=== PATIENT | female | born 1955 | race Caucasian/White ===

== ENCOUNTER → 2023-04-08 | Emergency (ER) | payer OTHER ==
[~2023-04-08] MED LIST: TRAMADOL HCL 50 MG TAB ONE
--- NOTE | 2023-04-08 12:50 | RAD REPORT ---
EXAM DESCRIPTION: CT - Spine Lumbar Wo Con - 04/08/2023 12:21 pm CLINICAL HISTORY: Radiculopathy. PAIN COMPARISON: No comparisons TECHNIQUE: Axial noncontrast CT imaging of the lumbar spine was performed with coronal and sagittal re-formatted images. All CT scans are performed using dose optimization technique as appropriate and may include automated exposure control or mA/KV adjustment according to patient size. FINDINGS: Moderate anterior compression fracture of the T12 vertebral body is noted. Vertebral body height loss is estimated 50%. No evidence of significant canal compromise. Postoperative changes of previous fusion noted at L5-S1 with hardware in place. There is no high-grade canal stenosis seen at any level. IMPRESSION: Moderate suspected acute anterior wedge compression fracture affects T12, with approxima tely 50% loss of vertebral body height. No significant canal compromise.
--- NOTE | 2023-04-08 13:33 | RAD REPORT ---
EXAM DESCRIPTION: CT - Head C Spine Mpr Wo Con - 04/08/2023 1:19 pm CLINICAL HISTORY: Head and neck injury status post fall. Head and neck pain COMPARISON: None. TECHNIQUE: Computed axial tomography of the head and cervical spine was obtained. Sagittal and coronal reconstruction was performed. All CT scans are performed using dose optimization technique as appropriate and may include automated exposure control or mA/KV adjustment according to patient size. FINDINGS: An intracranial bleed is not seen. The ventricles are normal in caliber. No significant hypodensity within the brain. An extra-axial fluid collection is not noted. Fluid within the visualized sinuses and mastoids is not seen A cervical fracture is not visualized. No dislocation is noted. IMPRESSION: No acute intracranial abnormality is seen. A cervical fracture is not visualized. If the patient continues to have symptoms to suggest intracranial /spinal cord pathology then MRI wou ld be recommended
--- NOTE | 2023-04-08 13:44 | RAD REPORT ---
EXAM DESCRIPTION: CTThoracic Spine W/o Cont04/08/2023 1:22 pm CLINICAL HISTORY: Back injury with Back pain status post fall COMPARISON: None TECHNIQUE: Computed axial tomography of thoracic spine was obtained with coronal and sagittal recons truction. All CT scans are performed using dose optimization technique as appropriate and may include automated exposure control or mA/KV adjustment according to patient size. FINDINGS: Moderate compression fracture T12 vertebral body with 50% height loss. No significant retr opulsion bone into the spinal canal. Acute fracture involves the right anterolateral aspect of the T12 vertebral body with avulsion of a l arge osteophyte. No dislocation IMPRESSION: Acute fracture involves the right anterolateral aspect of the T12 vertebral body with av ulsion of a large osteophyte. Moderate compression fracture involving the T12 vertebral body of indeterminate age
--- NOTE | 2023-04-08 14:07 | ER ---
Nurse's Notes [facility] Name: Geronimo Davis Age: 67 yrs Sex: Female : 1955 Arrival Date: 04/08/2023 Time: 11:23 Bed 13 Private MD: Diagnosis: T12 Compression fracture;Low back pain Presentation: 04/08 11:42 Chief complaint: Parent and/or Guardian states: LUMBAR PAIN SINCE FALL OUT OF BED 2 bp DAYS AGO. Coronavirus screen: At this time, the client does not indicate any symptoms associated with coronavirus-19. Ebola Screen: No symptoms or risks identified at this time. Initial Sepsis Screen: Does the patient meet any 2 criteria? No. Patient's initial sepsis screen is negative. Does the patient have a suspected source of infection? No. Patient's initial sepsis screen is negative. Risk Assessment: Do you want to hurt yourself or someone else? Patient reports no desire to harm self or others. Onset of symptoms is unknown. 11:42 Method Of Arrival: Wheelchair bp 11:42 Acuity: SARAHI 3 bp Triage Assessment: 11:42 General: Appears uncomfortable, Behavior is cooperative, appropriate for age, drowsy. bp Pain: Complains of pain in back. Historical: - Allergies: 11:38 Morphine; bp 11:38 Vicodin; bp 11:38 Darvocet-N 100; bp - PMHx: 11:38 Hypertensive disorder; Diabetes mellitus; Chronic obstructive lung disease; Cirrhosis bp of liver; Kidney disease; - PSHx: 11:38 Appendectomy; HYSTERECTOMY; LUMBAR FUSION; bp - Immunization history:: Adult Immunizations up to date. - Social history:: Smoking status: unknown. Screenin:45 [facility] ED Fall Risk Assessment (Adult) History of falling in the last 3 months, rs5 including since admission Yes- single mechanical fall (1 pt) Confusion or Disorientation No (0 pts) Intoxicated or Sedated No (0 pts) Impaired Gait Yes (1 pt) Mobility Assist Device Used Yes (1 pt) Altered Elimination Score/Fall Risk Level 0 - 2 = Low Risk Oriented to surroundings, Maintained a safe environment. Abuse screen: Denies threats or abuse. Nutritional screening: No deficits noted. Tuberculosis screening: No symptoms or risk factors identified. Assessment: 11:45 General: Appears in no apparent distress. uncomfortable, Behavior is calm, cooperative. rs5 Pain: Complains of pain in lower back Pain radiates to left leg Pain currently is 9 out of 10 on a pain scale. Quality of pain is described as aching, Pain began 2-3 days ago. Is continuous. Neuro: Level of Consciousness is awake, alert, obeys commands, Oriented to person, place, time, situation. 11:45 Cardiovascular: Heart tones S1 S2 present Patient's skin is warm and dry. Rhythm is rs5 regular. Respiratory: Airway is patent Respiratory effort is even, unlabored, Respiratory pattern is regular, symmetrical, Breath sounds are clear bilaterally. GI: Abdomen is round non-distended, Bowel sounds present X 4 quads. Abd is soft and non tender X 4 quads. : No signs and/or symptoms were reported regarding the genitourinary system. EENT: No signs and/or symptoms were reported regarding the EENT system. Derm: Skin is intact, Skin is pink, warm \\T\\ dry. Musculoskeletal: Range of motion: intact in all extremities. 11:45 Reassessment: Pt states "I fell 3 days ago and I landed on my lower back and the pains rs5 gradually has been getting worse over the past couple of days". 14:45 Reassessment: Patient and/or family updated on plan of care and expected duration. Pain rs5 level reassessed. Patient is alert, oriented x 3, equal unlabored respirations, skin warm/dry/pink. Patient denies pain at this time. Patient states feeling better. Patient states symptoms have improved. Transfer form signature obtained by pt. 14:50 Reassessment: successful attempt to call report to NADJA Douglas from [facility] at [address] 16:18 Reassessment: REPORT TO EMS FOR [facility]. bp 16:25 Reassessment: Patient and/or family updated on plan of care and expected duration. Pain rs5 level reassessed. Patient is alert, oriented x 3, equal unlabored respirations, skin warm/dry/pink. Report given to EMS for transportation. Vital Signs: 11:42 BP 150 / 78; Pulse 70; Resp 16; Temp 98; Pulse Ox 97% ; bp 12:14 BP 126 / 71; Pulse 66; Resp 18; Pulse Ox 99% on R/A; rs5 13:20 BP 120 / 70; Pulse 67; Resp 17; Pulse Ox 99% ; rs5 ED Course: 11:26 Patient arrived in ED. rg4 11:33 Srinivas Alvarado DO is Attending Physician. ms3 11:42 Arm band placed on. bp 11:43 Triage completed. bp 11:45 Patient has correct armband on for positive identification. Bed in low position. Call rs5 light in reach. Side rails up X2. 12:00 Hussein Moralez, RN is Primary Nurse. rs5 12:19 CT Lumbar Spine Wo Con In Process Unspecified. EDMS 13:18 CT Head C Spine In Process Unspecified. EDMS 13:18 CT Thoracic Spine Wo Cont In Process Unspecified. EDMS 13:30 Inserted saline lock: 20 gauge in left antecubital area, using aseptic technique. Blood rs5 collected. 14:26 initiated transfer to [facility]. bd 14:57 pt accepted in transfer to [facility] Er by dr Fraga admin approval given by Melvi. bd 16:19 No provider procedures requiring assistance completed. Patient transferred, IV remains bp in place. Administered Medications: 12:10 Drug: traMADol PO 50 mg PO once Route: PO; rs5 12:40 Follow up: Response: No adverse reaction; Pain is decreased rs5 Medication: 12:14 VIS not applicable for this client. rs5 Outcome: 14:07 ER care complete, transfer ordered by . ms3 16:19 Transferred by ground EMS to [facility], bp 16:19 Condition: stable 16:19 Instructed on the need for transfer, 16:37 Patient left the ED. rs5 Signatures: Dispatcher [employer] EDMS Edilia Rosario Rubi rg4 Trell Mcadams, RN RN bp Srinivas Alvarado DO DO ms3 Hussein Moralez, RN RN rs5 Corrections: (The following items were deleted from the chart) 16:37 14:45 Reassessment: Patient and/or family updated on plan of care and expected rs5 duration. Pain level reassessed. Patient is alert, oriented x 3, equal unlabored respirations, skin warm/dry/pink. Patient states feeling better. Patient states symptoms have improved. Transfer form signature obtained by pt. rs5 16:37 16:25 Reassessment: Patient and/or family updated on plan of care and expected rs5 duration. Pain level reassessed. Patient is alert, oriented x 3, equal unlabored respirations, skin warm/dry/pink. Report given to EMS for transportation. rs5
--- NOTE | 2023-04-08 14:07 | EDPHYS ---
Physician Documentation [facility] Name: Geronimo Davis Age: 67 yrs Sex: Female : 1955 Arrival Date: 04/08/2023 Time: 11:23 Bed 13 Private MD: ED Physician Srinivas Alvarado HPI: 04/08 12:39 This 67 yrs old Female presents to ER via Wheelchair with complaints of Pain All Over. ms3 12:39 67-year-old female with past medical history of hypertension, diabetes, chronic ms3 obstructive lung disease, cirrhosis of the liver presents to the emergency department 2 to 3 days status post falling out of bed. Patient states when she fell her head landed on her pillow and she landed on her back. Patient states the pain is a 9/10 located in her lumbar spine. Patient denies any alleviating factors. Patient states the pain is worse with standing, going to sit down, or going to lay down. Patient denies urinary or bowel incontinence, numbness, weakness. Historical: - Allergies: 11:38 Morphine; bp 11:38 Vicodin; bp 11:38 Darvocet-N 100; bp - PMHx: 11:38 Hypertensive disorder; Diabetes mellitus; Chronic obstructive lung disease; Cirrhosis bp of liver; Kidney disease; - PSHx: 11:38 Appendectomy; HYSTERECTOMY; LUMBAR FUSION; bp - Immunization history:: Adult Immunizations up to date. - Social history:: Smoking status: unknown. ROS: 12:39 Constitutional: Negative for fever, and chills. Neck: Negative for injury, pain, and ms3 swelling, Cardiovascular: Negative for chest pain, and palpitations. Respiratory: Negative for shortness of breath, cough, wheezing, and pleuritic chest pain, 12:39 Abdomen/GI: 12:39 Back: Positive for Lumbar back pain, 12:39 All other systems are negative, Exam: 12:39 Constitutional: This is a well developed, well nourished patient who is awake, alert, ms3 and in no acute distress. Head/Face: Normocephalic, atraumatic. Neck: Trachea midline, no cervical lymphadenopathy. Supple, full range of motion without nuchal rigidity, or vertebral point tenderness. No Meningismus. Chest/axilla: Normal chest wall appearance and motion. Nontender with no deformity. Cardiovascular: Regular rate and rhythm with a normal S1 and S2. No gallops, murmurs, or rubs. Normal PMI, no JVD. No pulse deficits. Respiratory: Lungs have equal breath sounds bilaterally, clear to auscultation and percussion. No rales, rhonchi or wheezes noted. No increased work of breathing, no retractions or nasal flaring. Abdomen/GI: Soft, non-tender, with normal bowel sounds. No distension or tympany. No guarding or rebound. No evidence of tenderness throughout. 12:39 Back: pain, that is severe, of the lumbar area, ROM is painful, with all movement, normal spinal alignment noted, vertebral tenderness, is appreciated at back, Vital Signs: 11:42 BP 150 / 78; Pulse 70; Resp 16; Temp 98; Pulse Ox 97% ; bp 12:14 BP 126 / 71; Pulse 66; Resp 18; Pulse Ox 99% on R/A; rs5 13:20 BP 120 / 70; Pulse 67; Resp 17; Pulse Ox 99% ; rs5 MDM: 12:05 Patient medically screened. ms3 12:39 Differential diagnosis: sprain, vertebral fracture. ms3 14:07 Data reviewed: vital signs, nurses notes, lab test result(s), radiologic studies, and ms3 as a result, I will transfer patient . I considered the following discharge prescriptions or medication management in the emergency department Medications were administered in the Emergency Department. See MAR. Historians other than the Patient: Daughter/Son: Patient's daughter. Care significantly affected by the following chronic conditions: Hypertension, Liver Disease. Counseling: I had a detailed discussion with the patient and/or guardian regarding the historical points, exam findings, and any diagnostic results supporting the discharge/admit diagnosis, lab results, radiology results, the need to transfer to another facility, [facility] does not immediately have the required specialist. ED course: Discussed necessity of transfer with patient to trauma center as patient fell from bed fracturing T12 vertebra. 04/08 12:58 Order name: CBC with Diff; Complete Time: 20:21 ms3 04/08 12:58 Order name: CMP; Complete Time: 14:44 ms3 04/08 12:58 Order name: PT-INR; Complete Time: 14:44 ms3 04/08 16:07 Order name: CBC Smear Scan; Complete Time: 20:21 EDMS 04/08 12:05 Order name: CT Lumbar Spine Wo Con; Complete Time: 12:56 ms3 04/08 12:58 Order name: CT Head C Spine; Complete Time: 14:05 ms3 04/08 13:00 Order name: CT Thoracic Spine Wo Cont; Complete Time: 14:05 ms3 Administered Medications: 12:10 Drug: traMADol PO 50 mg PO once Route: PO; rs5 12:40 Follow up: Response: No adverse reaction; Pain is decreased rs5 Disposition Summary: 04/08/23 14:07 Transfer Ordered Notes: Transfer Location: [facility] ms3 Reason: Higher level of care ms3 Condition: Stable ms3 Problem: new ms3 Symptoms: are unchanged ms3 Accepting Physician: (04/08/23 16:37) rs5 Diagnosis - T12 Compression fracture ms3 - Low back pain ms3 Forms: - Medication Reconciliation Form ms3 - SBAR form ms3 Signatures: Dispatcher [employer] EDTrell Ling, RN RN Srinivas Flowers DO DO ms3 Hussein Moralez RN RN rs5 Corrections: (The following items were deleted from the chart) 16:37 14:07 ms3 rs5
[2023-04-08 14:19] LABS: Protime INR 1.35
[2023-04-08 14:31] LABS: Albumin 2.7 g/dL (3.4-5.0); Bilirubin Total 1.3 mg/dL (0.2-1.0); Hematocrit 32.3 % (36.0-45.0); Lymphocytes % 17.6 % (15.3-44.8); MCV 89.1 fL (80-100); MPV 8.9 fL (7.6-11.3); Platelets 98 thou/uL (152-406); Potassium 3.5 mEq/L (3.5-5.1); Protein, Total 7.1 g/dL (6.4-8.2); RBC Red Blood Cell Count 3.63 M/uL (3.86-4.86)
[2023-04-08 16:06] LABS: Blood Morphology Comment NOT SEEN (NOT SEEN); Platelet Estimate DECR
[2023-04-08 16:22] LABS: White Blood Cell Scan OK (OK)
[2023-04-08 16:58] VITALS: BP 120/70; TEMP 98; O2SAT 99
== END ==
LOC: ER 11:23
DX: S22.089A Unspecified fracture of T11-T12 vertebra, initial encounter for closed fracture (principal); E11.9 Type 2 diabetes mellitus without complications; I10 Essential (primary) hypertension; J44.9 Chronic obstructive pulmonary disease, unspecified; Z88.5 Allergy status to narcotic agent
CPT/HCPCS: 36415; 70450; 72125; 72128; 72131; 80053; 85025; 85610; 99285

== ENCOUNTER → 2023-05-04 | Emergency (ER) | payer OTHER ==
[~2023-05-04] MED LIST changes: +ONDANSETRON 4 MG (ODT) TAB ONE
--- OUTSIDE RECORDS SUMMARY | 2023-05-04 02:23 | XMS REPORT | Continuity of Care Document ---
Author Name Unknown Address [address] [facility] [address] [place] [address] [facility] thconnect Address [address] [facility] [place] [address] Care Team Providers Care Crossing Tender Name Role Phone YUE AHN Attending Clinician UnaDov Millan Attending Clinician Unavailable YUE AHN Admitting Clinician Unav ailable Physician, No Primary or Family Admitting Clinic barbara Unavailable Payers Payer Name Policy Type Policy Number Effective Date Expirati on Date Source Allergies, Adverse Reactions, Alerts Allergy Name Allergy Type Status Severity Reaction(s) Onset Date Inactive Date Treating Clinician Comments Source No Known Allergie s DA Active U 2022-04 00:00: 00 [facility] Encounters Start Date/Time End Date/Time Encounter Type Admission Type Attending Clinicians Care Facility Care Department Encounter ID Source 2023-04-29 20:06:00 2023-05-01 15:40:00 Inpatient E YUE AHN [facility] [id number] [facility] 2023-04-22 14:23:30 2023-04-22 14:23:30 Outpatient S[facility] [id number] James Lawson 2023-04-15 21:57:00 2023-04-16 01:25:00 Emergency EM Dov Choe [facility] JAZMÍN [id number] [facility] Results Test Description Test Time Test Comments Results Resul t Comments Source - CT L-SPINE W/O CONTRAST 2023-04-15 23:37:[address] [facility] 1955 Sex: F Anshu tient Name: JEANETH HO Unit No: [id number] EXAMS: CPT CODE: [id number] CT L-SPINE W/O CONTRAST 10007 Exam: CT of the lumbar spine without contrast. History: T12 fracture Technique: Contiguous axial CT images were obtained of the lumbar spine without contrast. Coronal and sagittal reformatted images were also performed.One or more of the following dose reduction techniques were used: Automated exposure control, adjustment of the mA and/or kV according to patient size, and/or utilization of iterative reconstruction technique. Comparison: None Available Findings: Location: H102 Findings: Age-indeterminate fracture of T12 with approximately 70% loss of vertebral body height less than 2 mm of retropulsion of fragments into the canal. Mild associated canal stenosis is seen. Neuroforaminal stenosis also seen at T12-L1 bilaterally Multilevel degenerative changes are noted. Postsurgical changes of L5-S1 noted including kirit and screw fixation and laminectomy. Prominent anterolisthesis of L5 on S1 is noted Incidentally noted likely TIPS procedure is seen. Multiple hyperdensities seen adjacent to the patient's stomach may reflect variceal coiling recommend correlation with history Impression: Age-indeterminate fracture of T12 with approximately 70% loss of vertebral body height less than 2 mm of retropulsion of fragments into the canal. Mild associated canal stenosis is seen. Neuroforaminal stenosis also seen at T12-L1 bilaterally Multilevel degenerative changes are noted. Postsurgical changes of L5-S1 noted including kirit and screw fixation and laminectomy. Prominent anterolisthesis of L5 on S1 is noted at 2337 Reported and signed by: ELKE MORA M.D. [facility]: Dov Koroma MD [address] : 1955 Age: 67 Sex: F [place] [id number] Loc: P.ERS Exam Date: 04/15/2023 Status: REG ER PH: FAX: PAGE 1 Signed Report (CONTINUED) Patient Name: JEANETH HO Unit No: [id number] EXAMS: CPT CODE: [id number] CT L-SPINE W/O CONTRAST 40795 (Continued) CC: Dov Choe MD Technologist: Kelly Lugo CTDI: 39.14 DLP: 1470 Trscr Dt/Tm: 04/15/2023 (2337) by:[email or web address] Printed Date/Time: 04/15/2023 (2341) [facility]: Dov Koroma MD [address] DOB: 1955 Age: 67 Sex: F [place] [address] Loc: P.ERS Exam Date: 04/15/2023 Status: REG ER PH: FAX: PAGE 2 Signed Report Notes Date/Time Note Provider Source 2023-04-15 21:59:00 [id number]:59:00 [facility] ([facility])EMERGENCY PROVIDER REPORTREPORT#:[id number] REPORT STATUS: SignedDATE:04/15/23 TIME: 2158 PATIENT: JEANETH HO UNIT #: [id number]#: [id number] ROOM: BED:AGE: 67 SEX: F PCP PHYS: No Primary or Family PhysicianSERVICE AUTHOR: Dov Choe MD * ALL edits or amendments must be made on the electronic/computer document * Dov Choe 04/15/232158:HPI-Back Pain 40 and Over Free Text HPI NotesFree Text HPI [id number] female with a history of A-fib, TIPS procedure, smoking history, presents to the emergency room with complaint of compression fracture. Patient states that about a week and a half ago she had notable. Patient states that a week ago today she presented to [facility] and Was Diagnosed with T12 Fracture per Patient Was Transferred to [facility]. Specialist at [facility] instructed patient to follow-up with clinic as surgery was not an option at this time. Patient states that her pain has worsened. Patient states that the pain is located at the site of the fracture and when she ambulates she radiates down her posterior left leg to about her knee. Patient denies any numbness or weakness urinary or bowel incontinence. GeneralInitial Greet Date/Time 04/15/232158 PresentationChief Complaint Pain, thoracicSudden in Onset? No Review of Systems Focused Review of SystemsConstitutionalDenies: Chills, Fatigue, Fever. RespiratoryDenies: Cough, non-productive, Shortness of breath. CardiovascularDenies: Chest pain, Palpitations. GIDenies: Abdominal pain, Nausea, Vomiting. MusculoskeletalReports: Back pain. NeurologicDenies: Headache, Lightheaded, Numbness. Past Medical History - AdultStated Complaint CHRONIC PAIN IN LOWER BACKAllergiesCoded Allergies:No Known Allergies (04/15/23) Home MedicationsReported MedicationsZinc Sulfate (Zinc-15) 66 MG PO DAILY Rifaximin (Xifaxan) 550 MG PO DAILY Allopurinol (Zyloprim) 100 MG PO DAILY Omeprazole Er 40 MG PO DAILY Albuterol (Albuterol HFA 90 MCG/ACT) 2 PUFF INH RTQ4H PRN PRN DYSPNEA/WHEEZING Lactulose (Enulose 10 G/15 ML) 15 ML PO QID Triamcinolone Acetonide (Triamcinolone 0.1% Oint) Cholecalciferol (Vitamin D3) (Vitamin D3) Montelukast Sodium (Singulair) Spironolactone (Aldactone) Aripiprazole (Abilify) Sertraline (Zoloft) Gabapentin (Neurontin) Furosemide (Lasix) Tramadol (Ultram) Magnesium Oxide Ondansetron Odt (Zofran Odt) Physical Exam Vital SignsVital SignsFirst Documented: Result Date Time Pulse Ox 98 04/15 2158 B/P 153/70 04/15 2158 B/P Mean 97 04/15 2158 O2 Delivery Room air 04/15 2158 Temp 36.9 04/15 2158 Pulse 72 04/15 2158 Resp 16 04/15 2158 Last Documented: Result Date Time Pulse Ox 98 04/16 147 B/P 142/78 04/16 147 B/P Mean 99 04/16 147 O2 Delivery Room air 04/16 147 Temp 36.9 04/16 147 Pulse 74 04/16 147 Resp 16 04/16 147 Review of Vital Signs Reviewed Focused PEGeneral/Const General/Const Awake, Alert, No acute distress, Well appearing, Well developed, Well nourishedResp/Chest Respiratory/Chest Atraumatic, Breath sounds NL, Breath sounds = bilat, No respiratory distress, No ralesCardiovascular Cardiovascular Heart rate NL, Regular rhythm, Heart sounds NL, No murmursAbdomen/GI Abdomen/GI Atraumatic, Soft, No guarding, No reboundMS Lower Extrem Lower Ext/Pelvis/MS Atraumatic, Inspection NL, Full range of motionNeurologic Neurologic Oriented X3, No motor deficits, CN II - XII intact Interpretation Diagnostics Lab Results InterpretationResultsRecent Impressions:CAT SCAN - CT L-SPINE W/O CONTRAST 04/15 2220 Report Impression - Status: SIGNED Entered: 04/15/2023 2341 Impression: Age-indeterminate fracture of T12 with approximately 70% loss ofvertebral body height less than 2 mm of retropulsion of fragments intothe canal. Mild associated canal stenosis is seen. Neuroforaminalstenosis also seen at T12-L1 bilaterally Multilevel degenerativechanges are noted. Postsurgical changes of L5-S1 noted including rodand screw fixation and laminectomy. Prominent anterolisthesis of L5on S1 is noted Impression By: [email or web address] Ruth MORA M.D. Re-Evaluation MDM Free Text MDM NotesFree Text MDM [id number] female presents emergency room with complaint of back pain. Patientstates that the pain has worsened after her fall a week and a half ago. Patienthas a T12 vertebral body fracture. Patient was seen at 2 outside facilities prior. Patient was cleared for outpatient follow-up by surgery spine. Upon evaluation of previous imaging compared to today and speaking to radiology I believe that patient can be seen as an outpatient and keep appointment. Patientwithout any neural deficit at this time. Patient without any urinary or bowel incontinence. Patient does have liver failure. Patient is currently on tramadol every 12 as needed for pain. Daughter states that she has given her every 12 and it alleviates the pain briefly. Instructed daughter to give every 3 for the next 3 days but to watch patient closely for signs of overdose to include excessive sleepiness, altered mental status, respiratory depression. Will discharge at this time. Re-Evaluation/Progress #1Text/Dict NoteSpoke with [facility]. Patient [facility] CT spine without contrast that revealed moderate compression fracture of T12 vertebral body with 50% height loss. No significant retropulsion of bone into the spinal canal. Acute fracture involves the right anterior lateral aspect of T12 vertebral body with avulsion of large osteophyte. No dislocation.Time of Re-Eval 0009 Re-Evaluation/Progress #2Text/Dict NoteSpoke with [facility] emergency room doctor. There CT and x-ray read did not reveal any retropotion of the fragments into the canalTime of Eval 0019 Re-Evaluation/Progress #3Text/Dict NoteSpoke with radiologist about findings. States that retropulsion is very minimaland is not causing any compression of the spinal cord at this time. Very mild associated canal stenosis is seen. Patient without any neurodeficits at this time.Time of Eval 0032 ED CourseMedication(s) OrderedMedication(s) Ordered:Central Nervous System Agents Sig/Rajinder Start time Last Medication Dose Route Stop Time Status Admin Tramadol HCl 50 MG X1ED STA 04/16 42 DC 04/16 PO 04/16 43 0100 Differential Diagnosis)( Differential Diagnosis Fracture, Herniated disk, Lumbar strain Patient Discharge Departure Vital Signs/ConditionVital SignsFirst Documented: Result Date Time Pulse Ox 98 04/15 2158 B/P 153/70 04/15 2158 B/P Mean 97 04/15 2158 O2 Delivery Room air 04/15 2158 Temp 36.9 04/15 2158 Pulse 72 04/15 2158 Resp 16 04/15 2158 Last Documented: Result Date Time Pulse Ox 98 04/16 147 B/P 142/78 04/16 147 B/P Mean 99 04/16 147 O2 Delivery Room air 04/16 147 Temp 36.9 04/16 147 Pulse 74 04/16 147 Resp 16 04/16 147 All vital signs available at the time of this entry have been reviewed. Condition Stable Clinical ImpressionClinical ImpressionPrimary Impression: T12 compression fracture Disposition DecisionDischarge )( Discharged to Home Yes )( Time 003 )( Date 04/15/23 Discharge/Care PlanCounseled Regarding Diagnosis, Imaging studies, Need for follow-up(Auto) PrescriptionsCurrent Visit ScriptsTramadol (Ultram) 50 MG PO Q8H PRN PRN pain Tramadol (Ultram) 50 MG PO Q8H PRN PRN pain #9 TABS Patient Instructions ED Fracture, Vertebral CompressionAdditional InstructionsPlease follow-up with your spine surgeon for further evaluation management. If you develop any numbness or weakness in lower extremities return for further evaluation. Please be careful with pain medication as with your history of liver problems they can cause altered mental status. If you develop any abnormal symptoms please stop taking pain medication. Critical CareTime Spent (minutes): 40Services Performed Reviewing test results, Reviewing imaging, Discussing patientcare, Documentation in record, Time with fam/surrogate, speaking with previous hospitals, and radiologist Dick Huitron 04/21/23 1010:Re-Evaluation MDM Free Text MDM NotesAdditional Textupdating dispo time for accuracy for charge nurse logs. i did not see pt Patient Discharge Departure Disposition DecisionDischarge )( Discharged to Home Yes )( Time 0032 )( Date 04/16/23 (updating correct time only. ) at 0138 at 1010RPT #[id number] OF REPORTEDEmerrivendell behavioral health services department [id number]:59:00P.[id number] ilable for patient [id number]:[id number]:38 [facility]
[2023-05-04 03:37] LABS: Protime INR 1.4
[2023-05-04 04:27] LABS: SARS-CoV-2 Antigen Rapid Res Negative (Negative)
[2023-05-04 05:24] LABS: Albumin 2.6 g/dL (3.4-5.0); Bilirubin Direct 0.4 mg/dL (0-0.2); Bilirubin Indirect, Calculated 0.8 mg/dL (0.2-0.8); Bilirubin Total 1.2 mg/dL (0.2-1.0); C-Reactive Protein 23.8 mg/L (<3.00); Potassium 3.7 mEq/L (3.5-5.1); Protein, Total 6.9 g/dL (6.4-8.2); Troponin High Sensitivity 11.4 pg/mL (<58.9)
[2023-05-04 06:11] LABS: Hematocrit 30.3 % (36.0-45.0); MCV 90.8 fL (80-100); MPV 8.2 fL (7.6-11.3); Platelets 115 thou/uL (152-406); RBC Red Blood Cell Count 3.33 M/uL (3.86-4.86)
--- NOTE | 2023-05-04 07:33 | EDPHYS ---
Physician Documentation [facility] Name: Geronimo Davis Age: 67 yrs Sex: Female : 1955 Arrival Date: 05/04/2023 Time: 02:21 Bed 4 Private MD: ED Physician Donny Mittal HPI: 05/04 02:29 This 67 yrs old Female presents to ER via Unassigned with complaints of Post sp4 Surgical Pain, Chest Pain. 07:11 67-year-old female with history of nonalcoholic steatohepatitis, history hepatorenal sp4 syndrome, history of L-spine surgery 04/30/2023 at [facility] for T12 compression fracture. Presents with persistent chest pains since his surgery on . Chest pains have intensified causing patient to present to the emergency room today. Patient has history of TIPS 7 years ago. Historical: - Allergies: 02:43 Darvocet-N 100; as6 02:43 Morphine; as6 02:43 Vicodin; as6 - PMHx: 02:43 Chronic obstructive lung disease; cirrhosis of liver; diabetes mellitus; Hypertensive as6 disorder; kidney disease; - PSHx: 02:43 Appendectomy; hysterectomy; lumbar fusion; section; Cholecystectomy; TIPS; as6 - Immunization history:: Adult Immunizations up to date. - Social history:: Smoking status: Patient denies any tobacco usage or history of. - Family history:: not pertinent. ROS: 07:11 Constitutional: Negative for fever, chills, and weight loss, Cardiovascular: Positive sp4 for chest pain, 07:11 All other systems are negative, Exam: 07:11 Constitutional: This is a well developed, well nourished patient who is awake, alert, sp4 and in no acute distress. Head/Face: Normocephalic, atraumatic. Eyes: Pupils equal round and reactive to light, extra-ocular motions intact. Lids and lashes normal. Conjunctiva and sclera are not injected. Cornea within normal limits. Periorbital areas with no swelling, redness, or edema. ENT: Nares patent. No nasal discharge, no septal abnormalities noted. Tympanic membranes are normal and external auditory canals are clear. Oropharynx with no redness, swelling, or masses, exudates, or evidence of obstruction, uvula midline. Mucous membranes moist. Neck: Trachea midline, no thyromegaly or masses palpated, and no cervical lymphadenopathy. Supple, full range of motion without nuchal rigidity, or vertebral point tenderness. Chest/axilla: Normal chest wall appearance and motion. Nontender with no deformity. No lesions are appreciated. Cardiovascular: Regular rate and rhythm with a normal S1 and S2. No gallops, murmurs, or rubs. Normal PMI, no JVD. No pulse deficits. Respiratory: Lungs have equal breath sounds bilaterally, clear to auscultation and percussion. No rales, rhonchi or wheezes noted. No increased work of breathing, no retractions or nasal flaring. Abdomen/GI: Soft, non-tender, with normal bowel sounds. No distension or tympany. No guarding or rebound. No evidence of tenderness throughout. Back: No spinal tenderness. No costovertebral tenderness. There is sacral decubitus ulcer that is covered by the wound VAC. There is posterior postop incision the upper L-spine clean dry and intact Skin: Warm, dry with normal turgor. Normal color with no rashes, no lesions, and no evidence of cellulitis. MS/ Extremity: Pulses equal, no cyanosis. Neurovascular intact. Full, normal range of motion. Neuro: Awake and alert, GCS 15, oriented to person, place, time, and situation. Cranial nerves II-XII grossly intact. Motor strength 5/5 in all extremities. Sensory grossly intact. Psych: Awake, alert, with orientation to person, place and time. Behavior, mood, and affect are within normal limits 07:11 ECG was reviewed by the Attending Physician. EKG at 0 247 reveals normal sinus rhythm with a rate of 71 Vital Signs: 02:42 BP 155 / 69; Pulse 74; Resp 20 S; Temp 97.7(TE); Pulse Ox 99% on R/A; Weight 99.79 kg as6 (R); Height 5 ft. 4 in. (R); Pain 9/10; 03:27 BP 117 / 60; Pulse 52; Resp 17; Pulse Ox 96% on R/A; nw1 04:04 BP 154 / 60; Pulse 68; Pulse Ox 100% on R/A; nw1 05:16 BP 137 / 42; Pulse 57; Resp 16; Pulse Ox 98% ; la4 09:45 BP 138 / 55; Pulse 64; Resp 15; Pulse Ox 96% ; ko1 02:42 Body Mass Index 37.76 (99.79 kg, 162.56 cm) as6 02:42 Pain Scale: Adult as6 Raymond Coma Score: 03:18 Eye Response: spontaneous(4). Motor Response: obeys commands(6). Verbal Response: nw1 oriented(5). Total: 15. MDM: 02:39 Patient medically screened. sp4 06:14 ED course: EXAM: XR Chest, 1 View CLINICAL HISTORY: The patient is 67 years old and is sp4 Female; CHEST PAIN TECHNIQUE: Frontal view of the chest. COMPARISON: No relevant prior studies available. FINDINGS: Lungs: Mildly prominent interstitial markings. No consolidation. Pleural space: Unremarkable. No pneumothorax. Heart: Unremarkable. Mediastinum: Unremarkable. Normal mediastinal contour. Bones/joints: No acute findings. IMPRESSION: No acute findings in the chest.. 07:13 Differential diagnosis: acute pericarditis, anxiety, coronary artery disease chest wall sp4 pain, congestive heart failure costochondritis, esophagitis, gastritis. HEART Score: History: Moderately Suspicious (1), ECG: Normal (0), Age: > or = 65 years (2), Risk Factors: 1 or 2 risk factors (1), Troponin: < or = 1 x Normal Limit (0), Total Score = 4. Data reviewed: vital signs, nurses notes, old medical records, lab test result(s), EKG, radiologic studies, CT scan, plain films. Transition of care: After a detail discussion of the patient's case, care is transferred to Donny Mittal MD. ED course: Patient care transferred to Dr. Mittal. 05/04 02:48 Order name: Basic Metabolic Panel; Complete Time: 06:12 sp4 05/04 02:48 Order name: CBC with Diff; Complete Time: 06:42 sp4 05/04 02:48 Order name: LFT's; Complete Time: 06:12 sp4 05/04 02:48 Order name: Magnesium; Complete Time: 06:12 sp4 05/04 02:48 Order name: NT PRO-BNP; Complete Time: 06:12 sp4 05/04 02:48 Order name: PT-INR; Complete Time: 06:12 4 05/04 02:48 Order name: Troponin HS; Complete Time: 06:12 sp4 05/04 02:48 Order name: CRP; Complete Time: 06:12 05/04 02:48 Order name: Lipase; Complete Time: 06:12 05/04 03:07 Order name: SARS RAPID; Complete Time: 06:12 05/04 03:07 Order name: Influenza Screen (a \T\ B); Complete Time: 06:12 [facility] 05/04 06:23 Order name: AMMONIA; Complete Time: 07:27 [facility] 05/04 06:23 Order name: Troponin High Sensitivity; Complete Time: 07:27 [facility] 05/04 02:48 Order name: XRAY Chest (1 view) [facility] 05/04 06:13 Order name: CT Chest Abdomen Pelvis W/O Contrast [facility] 05/04 07:29 Order name: CT Chest For PE Angio [facility] 05/04 07:29 Order name: CT Abd/Pelvis - IV Contrast Only [facility] 05/04 08:10 Order name: INCENTIVE SPIROMETRY [facility] 05/04 02:48 Order name: EKG; Complete Time: 02:48 [facility] 05/04 02:48 Order name: Cardiac monitoring; Complete Time: 02:48 [facility] 05/04 02:48 Order name: EKG - Nurse/Tech; Complete Time: 02:48 [facility] 05/04 02:48 Order name: IV Saline Lock; Complete Time: 03:08 05/04 02:48 Order name: Labs collected and sent; Complete Time: 03:08 05/04 02:48 Order name: O2 Per Protocol; Complete Time: 02:48 [facility] 05/04 02:48 Order name: O2 Sat Monitoring; Complete Time: 02:48 sp4 EC:11 Rate is 71 beats/min. Rhythm is regular, Normal Sinus Rhythm. QRS [place] is Normal. [place] sp4 interval is normal. QRS interval is normal. QT interval is normal. No Q waves. T waves are Normal. No ST changes noted. Clinical impression: Normal ECG. Interpreted by me. Reviewed by me. Administered Medications: 03:07 Drug: traMADol PO 100 mg PO once Route: PO; la4 03:07 Drug: Ondansetron PO 4 mg PO once Route: PO; la4 03:08 Not Given (Duplicate Order): [id number] mg PO once nw1 Disposition Summary: 01/15/24 07:33 Transfer Ordered Notes: Transfer Location: [facility] chad Reason: Higher level of care chad Condition: Fair chad Problem: new chad Symptoms: have improved chad Accepting Physician: to tam(05/04/23 10:09) sameer Diagnosis - Chest pain, unspecified chad - Chest pain on breathing chad - Unspecified cirrhosis of liver chad - Other acute postprocedural pain - thoracic spine pain, posterior fusion chad L5-S1(05/04/23 08:04) - Atelectasis chad - Pleural condition, unspecified - TRACE BILATERAL, RIGHT GREATER THAN LEFT(05/04/23 chad 08:12) Forms: - Medication Reconciliation Form chad - SBAR form chad Signatures: Dispatcher [employer] EDMS Donny Mittal MD MD cha Slawson, Ashby RN RN as6 Martha Da Silva RN RN ko1 Stan Paz MD MD sp4 Zacarias Crawford RN RN la4 Chela Rubalcava RN nw1 Corrections: (The following items were deleted from the chart) 08:04 07:33 to tam chad chad 08:04 07:33 Other acute postprocedural pain - thoracic spine pain chad chad 08:05 08:04 to tam chad chad 08:10 08:05 to tam chad chad 08:12 08:05 Pleural condition, unspecified - TRACE BILATERAL chad chad 08:12 08:10 to tam chad chad 10:09 08:12 to tam chad ko1
--- NOTE | 2023-05-04 07:33 | ER ---
Nurse's Notes [facility] Name: Geronimo Davis Age: 67 yrs Sex: Female : 1955 Arrival Date: 05/04/2023 Time: 02:21 Bed 4 Private MD: Diagnosis: Chest pain, unspecified;Chest pain on breathing;Other acute postprocedural pain-thoracic spine pain, posterior fusion L5-S1;Unspecified cirrhosis of liver;Pleural condition, unspecified-TRACE BILATERAL, RIGHT GREATER THAN LEFT;Atelectasis Presentation: 05/04 02:44 Chief complaint: Patient states: chest pain that radiates to right arm and shortness of as6 breath. Coronavirus screen: At this time, the client does not indicate any symptoms associated with coronavirus-19. Ebola Screen: No symptoms or risks identified at this time. Initial Sepsis Screen: Does the patient meet any 2 criteria? No. Patient's initial sepsis screen is negative. Does the patient have a suspected source of infection? No. Patient's initial sepsis screen is negative. Risk Assessment: Do you want to hurt yourself or someone else? Patient reports no desire to harm self or others. Onset of symptoms was May 01, 2023. 02:44 Acuity: SARAHI 2 as6 02:44 Method Of Arrival: Wheelchair as6 Triage Assessment: 05:27 General: Appears in no apparent distress. Behavior is drowsy. Pain: Unable to use pain la4 scale. Historical: - Allergies: 02:43 Darvocet-N 100; as6 02:43 Morphine; as6 02:43 Vicodin; as6 - PMHx: 02:43 Chronic obstructive lung disease; cirrhosis of liver; diabetes mellitus; Hypertensive as6 disorder; kidney disease; - PSHx: 02:43 Appendectomy; hysterectomy; lumbar fusion; section; Cholecystectomy; TIPS; as6 - Immunization history:: Adult Immunizations up to date. - Social history:: Smoking status: Patient denies any tobacco usage or history of. - Family history:: not pertinent. Screenin:18 [facility] ED Fall Risk Assessment (Adult) History of falling in the last 3 months, nw1 including since admission Yes- single mechanical fall (1 pt) Confusion or Disorientation No (0 pts) Intoxicated or Sedated No (0 pts) Impaired Gait Yes (1 pt) Mobility Assist Device Used Yes (1 pt) Altered Elimination No (0 pt) Score/Fall Risk Level 3 or more points = High Risk Oriented to surroundings, Maintained a safe environment, Educated pt \T\ family on fall prevention, incl call for assistance when getting out of bed, Assessed \T\ reinforced patient's understanding of fall precautions, Provided non-skid footwear, Hourly rounding (assess needs \T\ fall precautionary measures) done, Used ambulatory aids as needed (educated on \T\ assisted with). Abuse screen: Denies threats or abuse. Denies injuries from another. Nutritional screening: No deficits noted. Tuberculosis screening: No symptoms or risk factors identified. Assessment: 03:18 Reassessment: No report received. Pt noted in room 4. Assumed care. Per patient, she nw1 was feeling unwell since back surgery on . Pt states that she is having CP and has been taking at home medication to assist with pain. Daughter noted at bedside. Call light at bedside. EKG performed by techs prior to this nurse entering room per price [place]. Per daughter patient is unable to take 100mg of tramadol PO due to liver and kidney failure. Notified MD and verbal order of 50mg of tramadol to be given. 50mg wasted per protocol. IV placed and pt tolerated well. 0 s/s of acute distress noted. VSS at this time. Pain: Complains of pain in chest Pain does not radiate. Pain began 2-3 days ago. Cardiovascular: Reports chest pain, nausea, Heart tones present Capillary refill < 3 seconds Rhythm is sinus rhythm. Respiratory: No deficits noted. Vital Signs: 02:42 BP 155 / 69; Pulse 74; Resp 20 S; Temp 97.7(TE); Pulse Ox 99% on R/A; Weight 99.79 kg as6 (R); Height 5 ft. 4 in. (R); Pain 9/10; 03:27 BP 117 / 60; Pulse 52; Resp 17; Pulse Ox 96% on R/A; nw1 04:04 BP 154 / 60; Pulse 68; Pulse Ox 100% on R/A; nw1 05:16 BP 137 / 42; Pulse 57; Resp 16; Pulse Ox 98% ; la4 09:45 BP 138 / 55; Pulse 64; Resp 15; Pulse Ox 96% ; ko1 02:42 Body Mass Index 37.76 (99.79 kg, 162.56 cm) as6 02:42 Pain Scale: Adult as6 Raymond Coma Score: 03:18 Eye Response: spontaneous(4). Motor Response: obeys commands(6). Verbal Response: nw1 oriented(5). Total: 15. ED Course: 02:25 Patient arrived in ED. jj6 02:29 Stan Paz MD is Attending Physician. sp4 02:42 Arm band placed on. as6 02:45 Triage completed. as6 03:17 Influenza Screen (a \T\ B) Sent. nw1 03:17 SARS RAPID Sent. nw1 03:17 Lipase Sent. nw1 03:17 CRP Sent. nw1 03:17 Basic Metabolic Panel Sent. nw1 03:18 Placed in gown. Bed in low position. Call light in reach. Side rails up X2. Adult w/ nw1 patient. Provided Education on: POC. Client placed on continuous cardiac and pulse oximetry monitoring. NIBP monitoring applied. quality assurance monitor chassis on. Pulse ox on. NIBP on. Door closed. Warm blanket given. 03:18 CBC with Diff Sent. nw1 03:18 LFT's Sent. nw1 03:18 Magnesium Sent. nw1 03:18 NT PRO-BNP Sent. nw1 03:18 PT-INR Sent. nw1 03:18 Troponin HS Sent. nw1 03:18 No provider procedures requiring assistance completed. Inserted saline lock: 20 gauge nw1 in right forearm, using aseptic technique. Blood collected. Patient maintains SpO2 saturation greater than 95% on room air. 04:03 Chela Rubalcava, RN is Primary Nurse. nw1 04:10 XRAY Chest (1 view) In Process Unspecified. EDMS 07:02 CT Chest Abdomen Pelvis W/O Contrast In Process Unspecified. EDMS 07:11 Attending Physician role handed off by Stan Paz MD chad 07:11 Donny Mittal MD is Attending Physician. chad 07:53 CT Chest For PE Angio In Process Unspecified. EDMS 07:53 CT Abd/Pelvis - IV Contrast Only In Process Unspecified. EDMS 08:16 initiated transfer to [facility]. bd 08:37 pt accepted in transfer to [facility]-ER by dr Smith, admin approval given by Selene Gonzalez 09:10 ems unable to transport pt at this time, ambulance is at [facility] on another bd transfer, per Minh. Pt will be transported by [facility]. 09:45 Patient transferred, IV remains in place. ko1 Administered Medications: 03:07 Drug: traMADol PO 100 mg PO once Route: PO; la4 03:07 Drug: Ondansetron PO 4 mg PO once Route: PO; la4 03:08 Not Given (Duplicate Order): [id number] mg PO once nw1 Medication: 03:18 VIS not applicable for this client. nw1 Outcome: 07:33 ER care complete, transfer ordered by . chad :45 Transferred by private ambulance [facility]. to [facility], Transfer form ko1 completed. X-rays sent w/ patient. :45 Condition: stable 09:45 Instructed on the need for transfer, Demonstrated understanding of 10:09 Patient left the ED. ko1 Signatures: Dispatcher [employer] EDMS Edilia Rosario Corey, MD MD cha Jeffries, Jennifer jj6 Fredis Rodriguez, RN RN as6 Martha Da Silva, RN RN ko1 Stan Paz MD MD sp4 Zacarias Crawford, RN RN april4 Chela Rubalcava, RN RN nw1
--- NOTE | 2023-05-04 07:55 | RAD REPORT ---
EXAM DESCRIPTION: CT - Chest Abd Pelvis Wo Con - 05/04/2023 7:00 am CLINICAL HISTORY: CHEST PAIN COMPARISON: Abdomen Pelvis W Contrast dated 05/04/2023; Chest For Pe Angio dated 05/04/2023; Thoraci c Spine W/o Cont dated 04/08/2023; Spine Lumbar Wo Con dated 04/08/2023 TECHNIQUE: Thin axial CT images of the chest, abdomen, and pelvis, performed without IV contrast. Mu ltiplanar reformats were generated and reviewed. All CT scans are performed using dose optimization technique as appropriate and may include automated exposure control or mA/KV adjustment according to patient size. FINDINGS: Trace bilateral layering pleural effusions with underlying atelectasis. Lungs are otherwis e clear. No pneumothorax or Pericardial effusion.No intrathoracic adenopathy. The liver, spleen, pancreas, adrenal glands and kidneys are within normal limits, apart from presence of TIPS and likely coronal embolization material near the epigastrium. Sequelae of cholecystectomy. No bowel obstruction, free air, free fluid or abscess. Normal appendix. No pathologic lymphadenopath y in the abdomen or pelvis. No worrisome osseous finding. Vertebral augmentation has been performed at T12 and L1 since the prior spine CTs. Sequelae of posterior fusion at L5-S1 with retrolisthesis at that level again seen. IMPRESSION: Trace bilateral layering pleural effusions. No other acute abnormalities. Chronic anterior wedge compression deformities at T12 and L1, with sequelae of vertebral augmentation . Other stable findings as above.
--- NOTE | 2023-05-04 08:04 | RAD REPORT ---
EXAM DESCRIPTION: CT - Abdomen Pelvis W Contrast - 05/04/2023 7:51 am CLINICAL HISTORY: ABD PAIN COMPARISON: Chest Abd Pelvis Wo Con dated 05/04/2023; Spine Lumbar Wo Con dated 04/08/2023; Thoracic Spine W/o Cont dated 04/08/2023 TECHNIQUE: Thin cut axial CT imaging of the abdomen and pelvis was performed following intravenous a dministration of 100 mL Isovue 300. Multiplanar reformats were generated and reviewed. All CT scans are performed using dose optimization technique as appropriate and may include automated exposure control or mA/KV adjustment according to patient size. FINDINGS: Lower lungs were separately evaluated on dedicated CT angiogram of the chest. The liver, spleen, and adrenal glands show no suspicious findings. TIPS present. Gallbladder was surg ically removed. Quad embolization material is seen in the epigastrium. Incidentally noted ovoid 2.3 x 2.2 cm cystic lesion along the posterior margin of the body of the worley creas, was not discretely elicited on the preceding noncontrast exam. This is probably stable and did retrospect was partially included on the prior CT lumbar spine. Symmetric renal function is seen with no hydronephrosis or suspicious renal mass. 1 cm cyst at the singh perior pole of the right kidney. No dilated bowel loops or bowel wall thickening. No free air, free fluid or inflammatory stranding. N o hernia, mass or bulky lymphadenopathy. The urinary bladder is without significant finding. No suspicious bony findings. Chronic T12 and L1 anterior compression fractures, with sequelae of vert ebral augmentation. IMPRESSION: No acute abnormalities in the abdomen and pelvis. Incidentally noted ovoid cystic 2.3 cm pancreatic body lesion. This deserves short-term follow-up dontrell ging evaluation in 6 [address] via [address] protocol CT or MRI, per the ACR white paper on incidental pancreatic cystic findings. Other stable/ benign findings as above.
--- NOTE | 2023-05-04 08:08 | RAD REPORT ---
EXAM DESCRIPTION: CT - Chest For Pe Angio - 05/04/2023 7:51 am CLINICAL HISTORY: CHEST PAIN COMPARISON: Chest Abd Pelvis Wo Con dated 05/04/2023 TECHNIQUE: Thin axial CT images of the chest were obtained following administration of 100 mL Isovue 370 IV contrast. Multiplanar reconstructions, and maximum intensity projection reconstructions were generated and reviewed. Exam utilizes a protocol for optimal evaluation of pulmonary arterial tree. All CT scans are performed using dose optimization technique as appropriate and may include automated exposure control or mA/KV adjustment according to patient size. FINDINGS: Pulmonary arteries are normal. No emboli or other suspicious finding. No acute or signific ant aorta findings. Variant 2 vessel arch anatomy. Streak artifact resulting from dense venous contra st degrades evaluation in the right axilla and right supraclavicular region. No mass or infiltrate in the lung parenchyma apart from subsegmental dependent atelectasis bilaterall y. . Trace bilateral pleural effusions larger on the right. No pneumothorax. No abnormal mediastinal or hilar masses or lymphadenopathy seen. No chest wall mass or abnormal axill iary lymphadenopathy. IMPRESSION: No evidence of acute central pulmonary emboli. No acute findings of the thoracic aorta. Trace bilateral pleural effusions larger on the right with underlying atelectasis.
[2023-05-04 10:20] VITALS: BP 138/55; TEMP 97.7; O2SAT 96
--- NOTE | 2023-05-04 16:56 | EKG ---
Test Date: 2023-05-04 Test Time: 02:47:02 [employer] Superintendent: MECCA MEASUREMENT RESULTS: Intervals: Rate: 71 AK: 162 QRSD: 78 QT: 396 QTc: 430 [place]: P: 15 AK: 162 QRS: 9 T: 30 INTERPRETIVE STATEMENTS: Normal sinus rhythm Normal ECG No previous ECG available for comparison Electronically Signed On 05-04-23 16:55:05 MEDICAL LAB SPECIALIST by Karlos Persaud
--- NOTE | 2023-05-06 10:00 | RAD REPORT ---
EXAM DESCRIPTION: RAD - Chest Single View - 05/04/2023 4:08 am CLINICAL HISTORY: CHEST PAIN COMPARISON: None TECHNIQUE: Single AP view of the chest. FINDINGS: Lung volumes adequate. Cardiac silhouette is normal in size. No pneumothorax. No large pleural effusion. No focal consolidation. No acute bony finding. IMPRESSION: No evidence of acute cardiopulmonary disease. Electronically signed by: Linda Bruner MD 05/04/2023 04:22 AM [employer] Due to temporary technical issues with the PACS/Fluency reporting system, reports are being signed by the in house radiologists without review as a courtesy to insure prompt reporting. The interpreting radiologist is fully responsible for the content of the report
== END ==
LOC: ER 02:21
DX: R07.1 Chest pain on breathing (principal); G89.18 Other acute postprocedural pain; J90 Pleural effusion, not elsewhere classified; K74.60 Unspecified cirrhosis of liver; J98.11 Atelectasis; I10 Essential (primary) hypertension; Z11.52 Encounter for screening for COVID-19; Z88.5 Allergy status to narcotic agent
CPT/HCPCS: 93005; 85025; 80048; 36415; 82140; 83735; 85610; 80076; 84484 ×2; 83690; 83880; 86140; 87804 ×2; 71250; 71275; 74176; 74177; 71045; 99285; 87811; Q9967; Q0162

== ENCOUNTER → 2023-06-16 | Emergency (ER) | payer OTHER ==
--- OUTSIDE RECORDS SUMMARY | 2023-06-16 10:32 | XMS REPORT | Continuity of Care Document ---
Author Name Unknown Address [address] [facility] [address]. [address] [place] [address] [facility] thconnect Address [address] [facility]. [address] [place] [address] Care Team Providers Care Anhydrous Ammonia Production Supervisor Name Role Phone No , Pcp Primary Care Physician UnavailMAHSA Gastno Attending Clinician Unavailable RYAN FRAGA Attending Clinician Unavailable SRINIVASA BLAIR Attending Clinician Unavailable Mahsa Pagan MD Attending Clinician [phone] PIERO KENNEY Attending Clinician UnavailYUE Franklin Attending Clinician Unav Dov Montiel Attending Clinician Unavailable ASUNCION GODWIN Admitting Clinician UnavailYUE [place] Admitting Clinician Unav ailable Physician, No Primary or Family Admitting Clinic barbara Unavailable Payers Payer Name Policy Type Policy Number Effective Date Expirati on Date Source [facility] WELLMED [id number] 2023 00:00:00 [facility] DUAL COMP HMO D SNP [id number] 2023 00:00:00 Problems Condition Name Condition Details Condition Category Status Onset Date Resolution Date Last Treatment Date Treating Clinician Comments Source Palpitatio ns Palpitatio ns Disease Active 06-02 00:00: 00 [facility] acute hospital PVC (premature ventricula r contractio n) PVC (premature ventricula r contractio n) Disease Active 2 00:00: 00 [facility] acute hospital Cigarette smoker Cigarette smoker Disease Active 06-02 00:00: 00 [facility] acute hospital History of arterial ischemic stroke History of arterial ischemic stroke Disease Active 06-02 00:00: 00 [facility] acute hospital VHD (valvular heart disease) VHD (valvular heart disease) Disease Active 06-02 00:00: 00 [facility] acute hospital Obesity (BMI 30-39.9) Obesity (BMI 30-39.9) Disease Active 06-02 00:00: 00 [facility] acute hospital OMARI (obstructi ve sleep apnea) OMARI (obstructi ve sleep apnea) Disease Active 06-02 00:00: 00 [facility] acute hospital Chronic heart failure with preserved ejection fraction Chronic heart failure with preserved ejection fraction Disease Active 06-02 00:00: 00 [facility] acute hospital Stage 3 chronic kidney disease, unspecifie d whether stage 3a or 3b CKD Stage 3 chronic kidney disease, unspecifie d whether stage 3a or 3b CKD Disease Active 06-02 00:00: 00 [facility] acute hospital Allergies, Adverse Reactions, Alerts Allergy Name Allergy Type Status Severity Reaction(s) Onset Date Inactive Date Treating Clinician Comments Source Insulin Allergy to substanc e Active 05-22 00:00: 00 [facility] No Known Allergie s DA Active U 2022-04 00:00: 00 [facility] ASPIRIN DRUG INGREDI Active Other-Cmnt 10-08 00:00: 00 General acute hospital Aspirin Drug Intolera nce Active Other - See comments 10-08 00:00: 00 NSAID, blood thinners damage to the liver General acute hospital NSAIDS (NON-RAMBO ROIDAL ANTI-INF LAMMATOR Y DRUG) Drug Class Active Other-Cmnt 09-28 00:00: 00 General acute hospital Nsaids (Non-Rambo roidal Anti-Inf lammator y Drug) Propensi ty to adverse reaction s Active Other - See comments 09-28 00:00: 00 Patient had TIPS ?Procedur e (aka Stent in Lever) ? No Heparin No Lovenox and No NSAIDS! General acute hospital Pneumoco ccal Vaccine Propensi ty to adverse reaction s Active Other 05-10 00:00: 00 [facility] INFLUENZ A VIRUS VACCINES Drug Class Active High Other-Cmnt 05-10 00:00: 00 General acute hospital PNEUMOCO CCAL VACCINE DRUG INGREDI Active High Other-Cmnt 05-10 00:00: 00 [facility] acute hospital Influenz a Virus Vaccines Drug Intolera nce Active Shortness of Breath 05-10 00:00: 00 Causes pneumonia Patient reports "put her in hospital" Causes pneumonia General acute hospital Pneumoco ccal Vaccine Drug Intolera nce Active Other - See comments 05-10 00:00: 00 [facility] acute hospital INSULINS Drug Class Active Swelling 11-02 00:00: 00 [facility] acute hospital Insulins Drug Allergy Active Swelling 11-02 00:00: 00 Basalar and another spin off os Lantus per notes Dr Smith 10/04/2019 and per daughter Domitila- she didn't know type of insulin General acute hospital INSULIN GLARGINE DRUG INGREDI Active High Swelling 10-04 00:00: 00 [facility] acute hospital Insulin Glargine Drug Allergy Active Other - See comments 10-04 00:00: 00 Basaglar Hand swelling And Basaglar [facility] Codeine Propensi ty to adverse reaction s Active Other 09-05 00:00: 00 [facility] Fluticas one Allergy to substanc e Active Swelling 01-17 00:00: 00 [facility] Fluticas one Drug Allergy Active Swelling 01-17 00:00: 00 General acute hospital FLUTICAS ONE DRUG INGREDI Active High Swelling 01-17 00:00: 00 [facility] acute hospital BLUEBERR Y DRUG INGREDI Active Med Diarrhea 2017-04 00:00: 00 General acute hospital Blueberr y Drug Intolera nce Active Rash 2017-04 00:00: 00 Blueberry extract General acute hospital PISTACHI O NUT DRUG INGREDI Active High Swelling 05-06 00:00: 00 General acute hospital PISTACIA VERA (PISTACH IO) Drug Class Active High Rash 05-06 00:00: 00 General acute hospital Pistachi o Nut Drug Intolera nce Active Swelling 05-06 00:00: 00 General acute hospital Pistacia Vera (Pistach io) Drug Allergy Active Rash 05-06 00:00: 00 [facility] acute hospital Hydrocod one-Acet aminophe n Drug Allergy Active Rash 10-19 00:00: 00 Other reaction( s): rash [facility] HYDROCOD ONE-ACET AMINOPHE N DRUG Active High Hives 10-19 00:00: 00 [facility] acute hospital OPIOIDS - MORPHINE ANALOGUE S Drug Class Active High Anaphylaxis 10-19 00:00: 00 [facility] acute hospital PROPOXYP HENE N-ACETAM INOPHEN DRUG Active Low Swelling 10-19 00:00: 00 [facility] acute hospital Hydrocod one-Acet aminophe n Drug Allergy Active Rash 10-19 00:00: 00 Other reaction( s): rash [facility] Opioids - Morphine Analogue s Drug Intolera nce Active Swelling 10-19 00:00: 00 "stops heart" "stops heart" "stops heart" Heart stops General acute hospital Propoxyp hene N-Acetam inophen Drug Allergy Active Hives 10-19 00:00: 00 Other reaction( s): rash [facility] acute hospital NO KNOWN ALLERGIE S Drug Class Active [facility] acute hospital Social History Social Habit Start Date Stop Date Quantity Comments Source History of tobacco use Cigarette Smoker [facility] Tobacco use and exposure 2023-06-02 00:00:00 2023-06-02 00:00:00 Smokeless tobacco non-user [facility] Sex Assigned At 1955 00:00:00 1955 00:00:00 [facility] Smoking Status Start Date Stop Date Source Tobacco smoking consumption unknown [facility] Smokes tobacco daily 2023-06-02 00:00:00 [facility] Medications Ordered Medication Name Filled Medication Name Start Date Stop Date Current Medication? Ordering Clinician Indication Dosage Frequency Signature (SIG) Comments Components Source gabapentin 400 mg capsule 06-02 10:55: 44 Yes 400mg Take 1 capsule by mouth in the morning and 1 capsule at noon and 1 capsule in the evening. [facility] acute hospital ARIPiprazol e 5 mg tablet 06-02 10:55: 44 Yes 5mg Take 1 tablet by mouth every morning. [facility] acute hospital montelukast 10 mg tablet 06-02 10:55: 44 Yes TAKE 1 TABLET BY MOUTH EVERY NIGHT [facility] acute hospital spironolact one 50 mg tablet 06-02 10:55: 44 Yes 50mg Take 1 tablet by mouth every morning. [facility] acute hospital albuterol 90 mcg/actuati on inhaler 06-02 10:55: 44 Yes INHALE 2 PUFFS BY MOUTH EVERY 6 HOURS NEEDED FOR WHEEZING [facility] acute hospital lactulose 10 gram/15 mL solution 06-02 10:55: 44 Yes TAKE 30 ML BY MOUTH EVERY 12 HOURS [facility] acute hospital traMADoL 50 mg tablet 06-02 10:55: 44 Yes 50mg Take 1 tablet by mouth every 8 (eight) hours as needed. [facility] acute hospital Magnesium Oxide, Bulk, 100 % Powd 06-02 10:55: 44 Yes 550mg Take 550 mg by mouth. [facility] acute hospital ondansetron 4 mg tablet 06-02 10:55: 44 Yes TAKE 1 TABLET BY MOUTH EVERY 8 HOURS FOR 7 DAYS NEEDED FOR NAUSEA OR VOMITING [facility] acute hospital gabapentin 400 mg capsule 06-02 10:55: 44 Yes 400mg Take 1 capsule by mouth in the morning and 1 capsule at noon and 1 capsule in the evening. [facility] acute hospital ARIPiprazol e 5 mg tablet 06-02 10:55: 44 Yes 5mg Take 1 tablet by mouth every morning. [facility] acute hospital montelukast 10 mg tablet 06-02 10:55: 44 Yes TAKE 1 TABLET BY MOUTH EVERY NIGHT [facility] acute hospital spironolact one 50 mg tablet 06-02 10:55: 44 Yes 50mg Take 1 tablet by mouth every morning. [facility] acute hospital albuterol 90 mcg/actuati on inhaler 06-02 10:55: 44 Yes INHALE 2 PUFFS BY MOUTH EVERY 6 HOURS NEEDED FOR WHEEZING [facility] acute hospital lactulose 10 gram/15 mL solution 06-02 10:55: 44 Yes TAKE 30 ML BY MOUTH EVERY 12 HOURS [facility] acute hospital traMADoL 50 mg tablet 06-02 10:55: 44 Yes 50mg Take 1 tablet by mouth every 8 (eight) hours as needed. [facility] acute hospital Magnesium Oxide, Bulk, 100 % Powd 06-02 10:55: 44 Yes 550mg Take 550 mg by mouth. [facility] acute hospital ondansetron 4 mg tablet 06-02 10:55: 44 Yes TAKE 1 TABLET BY MOUTH EVERY 8 HOURS FOR 7 DAYS NEEDED FOR NAUSEA OR VOMITING [facility] acute hospital carvediloL 6.25 mg tablet 06-02 10:55: 43 Yes 6.25mg Take 1 tablet by mouth in the morning and 1 tablet in the evening. [facility] acute hospital XIFAXAN 550 mg tablet 06-02 10:55: 43 Yes 550mg Take 1 tablet by mouth in the morning and 1 tablet in the evening. [facility] acute hospital carvediloL 6.25 mg tablet 06-02 10:55: 43 Yes 6.25mg Take 1 tablet by mouth in the morning and 1 tablet in the evening. [facility] acute hospital XIFAXAN 550 mg tablet 2024-0 2-13 10:55: 43 Yes 550mg Take 1 tablet by mouth in the morning and 1 tablet in the evening. [facility] acute hospital furosemide 20 mg tablet 2022-04 0 00:00: 00 Yes 20mg Take 1 tablet by mouth every morning. [facility] acute hospital furosemide 20 mg tablet 2022-04 0 00:00: 00 Yes 20mg Take 1 tablet by mouth every morning. [facility] acute hospital dulaglutide (TRULICITY) 0.75 mg/0.5 mL PnIj 2022-04 018 00:00: 00 Yes .75mg inject 1 Pen under the skin. [facility] acute hospital Cholecalcif dave, Vitamin D3, 50 mcg (2,000 unit) capsule 2022-04 0 00:00: 00 Yes 50ug Take 50 mcg by mouth. [facility] acute hospital omeprazole 40 mg capsule 2022-04 0 00:00: 00 Yes 40mg Take 1 capsule by mouth. [facility] acute hospital dulaglutide (TRULICITY) 0.75 mg/0.5 mL PnIj 2022-04 018 00:00: 00 Yes .75mg inject 1 Pen under the skin. [facility] acute hospital Cholecalcif dave, Vitamin D3, 50 mcg (2,000 unit) capsule 2022-04 0 00:00: 00 Yes 50ug Take 50 mcg by mouth. [facility] acute hospital omeprazole 40 mg capsule 2022-04 0 00:00: 00 Yes 40mg Take 1 capsule by mouth. [facility] acute hospital allopurinoL 100 mg tablet 12-31 00:00: 00 Yes 100mg Take 1 tablet by mouth. [facility] acute hospital allopurinoL 100 mg tablet 12-31 00:00: 00 Yes 100mg Take 1 tablet by mouth. [facility] acute hospital topiramate 15 mg SPRINKLE capsule 9- 00:00: 00 Yes [facility] acute hospital topiramate 15 mg SPRINKLE capsule -12 00:00: 00 Yes [facility] acute hospital SERTraline 25 mg tablet 8-05 00:00: 00 Yes 50mg Take 2 tablets by mouth. [facility] acute hospital SERTraline 25 mg tablet 805 00:00: 00 Yes 50mg Take 2 tablets by mouth. [facility] acute hospital EMGALITY PEN 120 mg/mL PnIj subcutaneou s injection 8- 00:00: 00 Yes 23800cy inject 43,200 mg under the skin. [facility] acute hospital EMGALITY PEN 120 mg/mL PnIj subcutaneou s injection 11-20 00:00: 00 Yes 51125nt inject 43,200 mg under the skin. [facility] acute hospital ubrogepant (UBRELVY) 100 mg Tab 11-14 00:00: 00 Yes 100mg Take 1 tablet by mouth. [facility] acute hospital ubrogepant (UBRELVY) 100 mg Tab 11-14 00:00: 00 Yes 100mg Take 1 tablet by mouth. [facility] acute hospital ipratropium -albuteroL 0.5 mg-3 mg(2.5 mg base)/3 mL nebulizer solution 06-05 00:00: 00 Yes 3mL Inhale 3 mL. [facility] acute hospital ipratropium -albuteroL 0.5 mg-3 mg(2.5 mg base)/3 mL nebulizer solution 06-05 00:00: 00 Yes 3mL Inhale 3 mL. [facility] acute hospital Vital Signs Vital Name Observation Time Observation Value Comments S ource Systolic blood pressure 2023-06-02 17:04:00 127 mm[Hg] [facility] Diastolic blood pressure 2023-06-02 17:04:00 64 mm[Hg] [facility] Heart rate 2023-06-02 17:04:00 68 /min [facility] Body height 2023-06-02 17:04:00 162.6 cm [facility] Body weight 2023-06-02 17:04:00 95.391 kg [facility] BMI 2023-06-02 17:04:00 36.10 kg/m2 [facility] Oxygen saturation in Arterial blood by Pulse oximetry 2023-06-02 17:04:00 97 /min [facility] Encounters Start Date/Time End Date/Time Encounter Type Admission Type Attending Clinicians Care Facility Care Department Encounter ID Source 2023-07-21 10:30:00 2023-07-21 10:30:[address] [facility] [id number] [facility] 2023-06-16 16:00:00 2023-06-16 16:00:00 [id number] 2023-06-09 11:36:18 2023-06-09 11:36:18 Outpatient [facility] [id number] James Lawson 2023-06-03 16:00:00 2023-06-03 16:00:00 Outpatient CORBY KIRBYAH [facility] [id number] General acute hospital 2023-06-03 10:55:35 2023-06-03 10:55:35 Outpatient MARY [facility] [id number] James Lawson 2023-06-02 11:00:00 2023-06-02 11:18:35 [facility] [id number] 2023-06-02 11:00:00 2023-06-02 11:18:35 [facility] 1..[id number] General acute hospital 2023-05-27 14:36:45 2023-05-27 14:36:45 Outpatient [facility] [id number] James Lawson 2023-05-26 13:50:07 2023-05-26 13:50:07 Outpatient [facility] [id number] James Lawson 2023-05-22 13:00:00 2023-05-22 14:05:01 Office Visit Ryan Fraga [facility] ..[id number] [facility] 2023-05-22 13:00:00 2023-05-22 14:05:[address] [facility] [id number] [facility] 2023-05-06 15:27:08 2023-05-06 15:27:08 Outpatient [facility] [id number] James Lawson 2023-05-04 09:43:00 2023-05-04 20:50:00 Emergency E PIERO KENNEY [facility] [id number] [facility] 2023-04-29 20:06:00 2023-05-01 15:40:00 Inpatient E YUE AHN [facility] MED [id number] [facility] 2023-04-22 14:23:30 2023-04-22 14:23:30 Outpatient [facility] [id number] James Lawson 2023-04-15 21:57:00 2023-04-16 01:25:00 Emergency EM Dov Choe [facility] JAZMÍN [id number] [address] [place] [address] Medical Center Results Test Description Test Time Test Comments Results Result Co mments Source [id number] 06:26:00* Test Item Value Reference Range Interpretation Comme nts GGT (test code = 2216) 16 U/L <40 UNLESS OTHERWISE INDICATED, ALL TESTING PERFORMED AT [facility] [address] [place] [address] JUNIOR JAVA DEVELOPER: MINDA MURRIETA M.D. CLIA NUMBER [id number] [facility] [place]. [id number] COMPREHENSIVE METABOLIC [id number] 05:46:42* Test Item Value Reference Range Interpretation Comme nts GLUCOSE (test code = 2217) 155 MG/DL 70-99 H BUN (test code = 2208) 14 MG/DL 8-23 CREATININE (test code = 2214) 1.20 MG/DL 0.60-1.30 eGFR (2020 CKD-EPI) (test code = 87174) 50 ML/MIN/1.73 >60 L The NKF-ASN Taskforce recommends use of Cystatin C to confirm eGFR inadults at risk for CKD. [facility] offers eGFR with Cystatin C-Creatinineusing the 2020 CKD-EPI eGFR_creat-cystat equation (order code 3057) toincrease the accuracy of estimated GFR. For more information, contactXi'an [email or web address] distribution accounting clerk or see announcement [email or web address] CALC BUN/CREAT (test code = 2234) 12 RATIO 6-28 SODIUM (test code = 223) 140 MEQ/L 133-146 POTASSIUM (test code = 2228) 3.6 MEQ/L 3.5-5.4 CHLORIDE (test code = 2215) 105 MEQ/L 95-107 CARBON DIOXIDE (test code = 2206) 23 MEQ/L 19-31 CALCIUM (test code = 220) 9.2 MG/DL 8.5-10.5 PROTEIN, TOTAL (test code = 2228) 6.9 G/DL 6.1-8.3 ALBUMIN (test code = 2200) 3.5 G/DL 3.5-5.2 CALC GLOBULIN (test code = 2240) 3.4 G/DL 1.9-3.7 CALC A/G RATIO (test code = 2233) 1.0 RATIO 1.0-2.6 BILIRUBIN, TOTAL (test code = 2206) 1.5 MG/DL <=1.2 H ALKALINE PHOSPHATASE (test code = 2203) 237 U/L 40-140 H AST (test code = 2218) 31 U/L 9-40 ALT (test code = 2219) 19 U/L 5-40 HEPATITIS PANEL, [id number] 04:26:28* Test Item Value Reference Range Interpretation Comme nts HEPATITIS A IgM (test code = 64791) NON-REACTIVE NON-REACTIVE HEPATITIS B CORE IgM (test code = 4644) NON-REACTIVE NON-REACTIVE HEPATITIS B SURF AG (test code = 2739) NON-REACTIVE NON-REACTIVE HEPATITIS C ANTIBODY (test code = 4675) NON-REACTIVE NON-REACTIVE INTERPRETATION HEPATITIS A: (test code = 2552) (NOTE) Hepatitis A serology shows no evidence of acute hepatitis A. INTERPRETATION HEPATITIS B: (test code = 89079) (NOTE) Hepatitis B serology shows no evidence of acute hepatitis B andno indication of exposure to hepatitis B virus in the previous tonja eight months. INTERPRETATION HEPATITIS C: (test code = 77967) (NOTE) Hepatitis C serology shows no evidence of exposure to hepatitisC virus at this time. It can take up to 12 months after exposure tothe hepatitis C virus for antibodies to become detectable in the blood in certain patients. PROTHROMBIN TIME (PT)2023-06-04 03:07:02* Test Item Value Reference Range Interpretation Comme nts PROTHROMBIN TIME (PT) (test code = 1402) 16.8 SECONDS 12.5-14.7 H INR (test code = 31329) 1.3 SEE BELOW CURRENT RECOMMENDATIONS ARE FOR AN INR OF 2.0-3.0 FOR ALL PATIENTS ON VITAMIN K ANTAGONISTS, EXCEPT THOSE WITH PROSTHETIC HEART VALVES, FOR WHOM INR OF 2.5-3.5 IS RECOMMENDED. [id number] 03:07:02* Test Item Value Reference Range Interpretation Comme nts PTT (test code = 1403) 31.3 SECONDS 25.2-40.0 HEMOGLOBIN [id number] 02:26:29* Test Item Value Reference Range Interpretation Comme nts HEMOGLOBIN A1c (test code = 32983) 5.6 % 4.2-5.6 CBC W/AUTO DIFF WITH [id number] 01:57:34* Test Item Value Reference Range Interpretation Comme nts WBC (test code = 1001) 5.7 K/UL 3.5-11.0 RBC (test code = 1002) 3.40 M/UL 3.80-5.40 L HEMOGLOBIN (test code = 1003) 10.7 G/DL 11.5-15.5 L HEMATOCRIT (test code = 1004) 30.8 % 34.0-45.0 L MCV (test code = 1005) 90.6 fL 80.0-99.0 MCH (test code = 1006) 31.5 PG 25.0-33.0 MCHC (test code = 1007) 34.7 G/DL 31.0-36.0 RDW (test code = 1038) 13.7 % 11.5-15.0 NEUTROPHILS (test code = 1008) 72.9 % LYMPHOCYTES (test code = 1010) 17.3 % MONOCYTES (test code = 1011) 6.3 % EOSINOPHILS (test code = 1012) 3.0 % BASOPHILS (test code = 1013) 0.3 % IMMATURE GRANULOCYTES (test code = 1036) 0.2 % NUCLEATED RBCS (test code = 1065) 0.0 /100 WBC'S See_Comment [Automated messa ge] The system which generated this result transmitted reference range: 0.0. The reference range was not used to interpret this result as normal/abnormal. PLATELET COUNT (test code = 1015) 144 K/UL 130-400 ABSOLUTE NEUTROPHILS (test code = 1066) 4.17 K/UL 1.50-7.50 ABSOLUTE LYMPHOCYTES (test code = 1067) 0.99 K/UL 1.00-4.00 L ABSOLUTE MONOCYTES (test code = 1068) 0.36 K/UL 0.20-1.00 ABSOLUTE EOSINOPHILS (test code = 1040) 0.17 K/UL 0.00-0.50 ABSOLUTE BASOPHILS (test code = 1069) 0.02 K/UL 0.00-0.20 ABS IMMATURE GRANULOCYTES (test code = 1020) 0.01 K/UL 0.00-0.10 ABS NUCLEATED RBCS (test code = 56727) 0.00 K/UL 0.00-0.11 - CT L-SPINE W/O [id number] 23:37:00 [facility] 1955 Sex: FPatient Name: JEANETH HO Unit No: [id number] EXAMS: CPT CODE: [id number] CT L-SPINE W/O CONTRAST 39316 Exam: CT of the lumbar spine without [...] 70% loss of vertebral body height less than2 mm of retropulsion of fragments into the canal. Mild associated canal stenosis is seen. Neuroforaminal stenosis also seen at T12-L1 bilaterally Multilevel degenerative changes are noted. Postsurgical changes of L5-S1 noted including kirit and screw fixation and laminectomy. Prominent anterolisthesis of L5 on S1 is noted at 2337 Reported and signed by: ELKE MORA M.D. [facility]: Dov Koroma MD [address] DOB: 1955 Age: 67 Sex: F [place] [id number] Loc: P.ERS Exam Date: 04/15/2023 Status: REG ER PH: FAX: PAGE 1 Signed Report (CONTINUED) Patient Name: JEANETH HO Unit No: [id number] EXAMS: CPT CODE: [id number] CT L-SPINE W/O CONTRAST 87309 (Continued) CC: Dov Choe MD Technologist: Kelly Lugo CTDI: 39.14 DLP:1470 Trscr Dt/Tm: 04/15/2023 (2337) by:[email or web address] Printed Date/Time: 04/15/2023 (2341) [facility]: Dov Koroma MD [address] DOB: 1955 Age: 67 Sex: F [place] [address] Loc: P.ERS Exam Date: 04/15/2023 Status: REG ER PH: FAX: PAGE 2 Signed Report Notes Date/Time Note Provider Source 2023-04-15 21:59:00 [id number]:59:00 [facility] ([facility])EMERGENCY PROVIDER REPORTREPORT#:[id number] REPORT STATUS: SignedDATE:04/15/23 TIME: 2158 PATIENT: JEANETH HO UNIT #: [id number]#: [id number] ROOM: BED:AGE: 67 SEX: F PCP PHYS: No Primary or Family PhysicianSERVICE AUTHOR: Dov Choe MD * ALL edits or amendments must be made on the electronic/computer document * Dov Choe 04/15/232158:HPI-Back Pain 40 and Over Free Text HPI NotesFree Text HPI [id number] female with a history of A-fib, TIPS procedure, smoking history, presents to the emergency room with complaint of compression fracture. Patient states that about a week and a half ago she had notable. Patient states that a week ago today she presented to [facility] and Was Diagnosed with T12 Fracture per Patient Was Transferred to [facility]. Specialist at [facility] instructed patient to follow-up with clinic as [...] L5on S1 is noted Impression By: [email or web address] - ELKE MORA M.D. Re-Evaluation MDM Free Text MDM NotesFree Text MDM [id number] female presents emergency room with complaint of [...] at this time. Re-Evaluation/Progress #1Text/Dict NoteSp[facility] with [facility]. [facility] CT spine without contrast that revealed moderate compression fracture of T12 vertebral body with 50% height loss. No significant retropulsion of bone into the spinal canal. Acute fracture involves the right anterior lateral aspect of T12 vertebral body with avulsion of large osteophyte. No dislocation.Time of Re-Eval 0009 Re-Evaluation/Progress #2Text/Dict NoteSpoke with [facility] emergency room doctor. There CT and x-ray read did not reveal any retropotion of the fragments into the canalTime of Eval 0019 Re-Evaluation/Progress #3Text/Dict NoteSpoke with radiologist about findings. States that retropulsion is very minimaland is not causing any compression of the spinal cord at this time. Very mild associated canal stenosis is seen. Patient without any neurodeficits at this time.Time of Eval 003 ED CourseMedication(s) OrderedMedication(s) Ordered:Central Nervous System Agents [...] )( Discharged to Home Yes )( Time 31 )( Date 04/15/23 Discharge/Care PlanCounseled Regarding Diagnosis, [...] time only. ) at 0138 at 1010RPT #:[id number] OF REPORTEDEmergency department [id number]:59:[id number] ilable for patient [id number] [facility]
--- NOTE | 2023-06-16 12:49 | RAD REPORT ---
EXAM DESCRIPTION: RAD - Pelvis - 06/16/2023 12:43 pm CLINICAL HISTORY: BLUNT TRAUMA COMPARISON: No comparisons FINDINGS/IMPRESSION: No acute fracture. No malalignment. Mild bilateral acetabular degenerative jacobo ges, right greater than left. Fusion hardware at L5-S1.
--- NOTE | 2023-06-16 12:49 | RAD REPORT ---
EXAM DESCRIPTION: RAD - Hip Right 2 View - 06/16/2023 12:44 pm CLINICAL HISTORY: PAIN COMPARISON: No comparisons FINDINGS/IMPRESSION: No acute fracture. No malalignment. Mild to moderate right acetabular degenerat juana changes.
--- NOTE | 2023-06-16 12:52 | RAD REPORT ---
EXAM DESCRIPTION: RAD - Lumbar Spine 3 Views - 06/16/2023 12:44 pm CLINICAL HISTORY: PAIN COMPARISON: No comparisons FINDINGS/IMPRESSION: No acute fracture. Partially imaged thoracolumbar scoliosis. L5-S1 fusion. Kyph oplasty changes and T12 and L1. Disc height loss and endplate spurring is present at T12-L1 and L1-2. Atherosclerosis. Embolization coils in the epigastrium. TIPS shunt.
--- NOTE | 2023-06-16 13:03 | EDPHYS ---
Physician Documentation [facility] Name: Geronimo Davis Age: 67 yrs Sex: Female : 1955 Arrival Date: 06/16/2023 Time: 10:29 Bed 12 Private MD: ED Physician Arnaldo Blake HPI: 06/16 12:33 This 67 yrs old Female presents to ER via Ambulatory with complaints of Low Back Pain, rn Hip Pain - right. 12:33 The patient presents with pain that is acute. The symptoms are located in the low back. rn Onset: The symptoms/episode began/occurred 1 month(s) ago. Modifying factors: The patient symptoms are alleviated by nothing, the patient symptoms are aggravated by any movement. Associated signs and symptoms: Pertinent positives: none Pertinent negatives: abdominal pain, chest pain, fever, headache, hematuria, incontinence, nausea, numbness, tingling, urinary retention, vomiting, weakness. Severity of symptoms: At their worst the symptoms were moderate, in the emergency department the symptoms are unchanged. The patient has experienced similar episodes in the past. Patient reports fall approximately 1 month ago from standing. Already had back problems with lower lumbar fusion in the past. Patient states fell and hit right hip. Has pain in right hip and lower back for the last month. Does not take blood thinners. Thought it would get better and has not gone away completely. Is ambulatory but uses walker.. Historical: - Allergies: 10:57 Darvocet-N 100; as6 10:57 Morphine; as6 10:57 Vicodin; as6 - PMHx: 10:57 Chronic obstructive lung disease; cirrhosis of liver; diabetes mellitus; Hypertensive as6 disorder; kidney disease; - PSHx: 10:57 Appendectomy; section; Cholecystectomy; hysterectomy; lumbar fusion; TIPS; as6 - Immunization history:: Adult Immunizations up to date. - Social history:: Smoking status: Patient reports the use of cigarette tobacco products, denies chronic smoking, but will smoke occasionally. - Family history:: not pertinent. - Hospitalizations: : No recent hospitalization is reported. ROS: 12:33 Constitutional: Negative for fever, chills, and weight loss, Cardiovascular: Negative rn for chest pain, palpitations, and edema, Respiratory: Negative for shortness of breath, cough, wheezing, and pleuritic chest pain, Abdomen/GI: Negative for abdominal pain, nausea, vomiting, diarrhea, and constipation, Back: Positive for lower back pain MS/Extremity: Positive for right hip pain Skin: Negative for injury, rash, and discoloration, Neuro: Negative for headache, weakness, numbness, tingling, and seizure, Exam: 13:00 Constitutional: This is a well developed, well nourished patient who is awake, alert, rn and in no acute distress. Ambulatory to triage and diagnostic chair without assistance, does use a walker though Head/Face: Normocephalic, atraumatic. Cardiovascular: Regular rate and rhythm. No pulse deficits. Respiratory: No increased work of breathing, no retractions or nasal flaring. Abdomen/GI: Soft, non-tender Back: No spinal tenderness. MS/ Extremity: Pulses equal, no cyanosis. Neurovascular intact. Mild pain with movement of right hip but ambulatory Vital Signs: 10:56 BP 122 / 55; Pulse 61; Resp 18 S; Temp 97.5(TE); Pulse Ox 96% on R/A; Weight 95.25 kg as6 (R); Height 5 ft. 4 in. (R); Pain 10/10; 10:56 Body Mass Index 36.05 (95.25 kg, 162.56 cm) as6 10:56 Pain Scale: Adult as6 MDM: 10:41 Patient medically screened. rn 13:00 Differential diagnosis: arthritis, strain, fracture, contusion, Herniated disc. Data rn reviewed: vital signs, nurses notes, radiologic studies, plain films, and as a result, I will discharge patient. Counseling: I had a detailed discussion with the patient and/or guardian regarding the historical points, exam findings, and any diagnostic results supporting the discharge/admit diagnosis, radiology results, the need for outpatient follow up, to return to the emergency department if symptoms worsen or persist or if there are any questions or concerns that arise at home. Special discussion: I discussed with the patient/guardian in detail that at this point there is no indication for admission to the hospital. It is understood, however, that if the symptoms persist or worsen the patient needs to return immediately for re-evaluation. ED course: Patient already on gabapentin and tramadol. States cannot take muscle relaxers. No acute injuries. Will discharge home with return precautions. I have personally reviewed all of the results, including but not limited to imaging deemed necessary to safely discharge this patient at this time. All results given to and printed out for patient. I personally went over all the results with the patient and answered all questions. Patient will follow-up with PCP and or specialist as discussed. Return precautions given and understood.. 06/16 11:10 Order name: XRAY Hip RIGHT 2 view; Complete Time: 12:55 rn 06/16 11:10 Order name: XRAY Pelvis; Complete Time: 12:55 rn 06/16 11:10 Order name: XRAY Lumbar Spine (3 Views); Complete Time: 12:55 rn Administered Medications: No medications were administered Disposition Summary: 06/16/23 13:03 Discharge Ordered Notes: Location: Home rn Problem: new rn Symptoms: have improved rn Condition: Stable rn Diagnosis - Low back pain rn - Pain in right hip rn Followup: rn - With: Private Physician - When: As needed - Reason: Recheck today's complaints, Re-evaluation by your physician Discharge Instructions: - Discharge Summary Sheet rn - Joint Pain rn - Chronic Back Pain rn - Lumbosacral Radiculopathy rn - Musculoskeletal Pain rn - Hip Pain rn Forms: - Medication Reconciliation Form rn - Thank You Letter rn - Antibiotic ornamental ironworker - Prescription Opioid Use rn - Patient Portal Instructions rn - Leadership Thank You Letter rn Signatures: Dispatcher [employer] Arnaldo Rico MD MD rn Slawson, Ashby, RN RN as6 Corrections: (The following items were deleted from the chart) 13:01 12:33 Constitutional: Negative for fever, chills, and weight loss, rn rn
--- NOTE | 2023-06-16 13:03 | ER ---
Nurse's Notes [facility] Name: Geronimo Davis Age: 67 yrs Sex: Female : 1955 Arrival Date: 06/16/2023 Time: 10:29 Bed 12 Private MD: Diagnosis: Low back pain;Pain in right hip Presentation: 06/16 10:56 Chief complaint: Patient states: right hip pain and generalized lower back pain. pt had as6 a fall at the beginning of the month and pain has increasingly gotten worse. Coronavirus screen: At this time, the client does not indicate any symptoms associated with coronavirus-19. Ebola Screen: No symptoms or risks identified at this time. Initial Sepsis Screen: Does the patient meet any 2 criteria? No. Patient's initial sepsis screen is negative. Does the patient have a suspected source of infection? No. Patient's initial sepsis screen is negative. Risk Assessment: Do you want to hurt yourself or someone else? Patient reports no desire to harm self or others. Onset of symptoms was April 2023. 10:56 Method Of Arrival: Ambulatory as6 10:56 Acuity: SARAHI 4 as6 Triage Assessment: 10:58 General: Appears uncomfortable, Behavior is calm, cooperative. Pain: Complains of pain as6 in back and right hip. Historical: - Allergies: 10:57 Darvocet-N 100; as6 10:57 Morphine; as6 10:57 Vicodin; as6 - PMHx: 10:57 Chronic obstructive lung disease; cirrhosis of liver; diabetes mellitus; Hypertensive as6 disorder; kidney disease; - PSHx: 10:57 Appendectomy; section; Cholecystectomy; hysterectomy; lumbar fusion; TIPS; as6 - Immunization history:: Adult Immunizations up to date. - Social history:: Smoking status: Patient reports the use of cigarette tobacco products, denies chronic smoking, but will smoke occasionally. - Family history:: not pertinent. - Hospitalizations: : No recent hospitalization is reported. Screenin:22 [facility] ED Fall Risk Assessment (Adult) History of falling in the last 3 months, cm10 including since admission No falls in past 3 months (0 pts) Confusion or Disorientation No (0 pts) Intoxicated or Sedated No (0 pts) Impaired Gait Yes (1 pt) Mobility Assist Device Used Yes (1 pt) Altered Elimination No (0 pt) Score/Fall Risk Level 0 - 2 = Low Risk Oriented to surroundings, Maintained a safe environment, Hourly rounding (assess needs \T\ fall precautionary measures) done. Abuse screen: Denies threats or abuse. Denies injuries from another. Nutritional screening: No deficits noted. Tuberculosis screening: No symptoms or risk factors identified. Assessment: 13:21 General: Appears in no apparent distress. comfortable, Behavior is calm, cooperative. cm10 Pain: Complains of pain in pelvis and back and right hip. Neuro: No deficits noted. Level of Consciousness is awake, alert, Oriented to person, place, time, situation. Musculoskeletal: Reports pain in pelvis and back and right hip. Vital Signs: 10:56 BP 122 / 55; Pulse 61; Resp 18 S; Temp 97.5(TE); Pulse Ox 96% on R/A; Weight 95.25 kg as6 (R); Height 5 ft. 4 in. (R); Pain 10/10; 10:56 Body Mass Index 36.05 (95.25 kg, 162.56 cm) as6 10:56 Pain Scale: Adult as6 ED Course: 10:38 Patient arrived in ED. im 10:41 Arnaldo Blake MD is Attending Physician. rn 10:55 Arm band placed on. as6 10:57 Triage completed. as6 12:45 XRAY Hip RIGHT 2 view In Process Unspecified. EDMS 12:45 XRAY Pelvis In Process Unspecified. EDMS 12:45 XRAY Lumbar Spine (3 Views) In Process Unspecified. EDMS 13:22 Patient has correct armband on for positive identification. Provided Education on: cm10 Follow-up instructions. 13:22 No provider procedures requiring assistance completed. Patient did not have IV access cm10 during this emergency room visit. Administered Medications: No medications were administered Medication: 13:22 VIS not applicable for this client. cm10 Outcome: 13:03 Discharge ordered by . rn 13:22 Discharged to home ambulatory, cm10 13:22 Condition: good 13:22 Discharge instructions given to patient, Instructed on discharge instructions, follow up and referral plans. medication usage, Demonstrated understanding of instructions, follow-up care, 13:23 Patient left the ED. cm10 Signatures: Dispatcher [employer] EDMS Arnaldo Blake MD MD rn Slawson, Ashby, RN RN as6 Suzy Alaniz Clarissa, RN RN cm10
[2023-06-16 13:46] VITALS: BP 122/55; TEMP 97.5; O2SAT 96
== END ==
LOC: ER 10:29
DX: M54.50 Low back pain, unspecified (principal); M25.551 Pain in right hip; Z88.5 Allergy status to narcotic agent
CPT/HCPCS: 72100; 72170; 99282

== ENCOUNTER 2023-12-20 20:56 | Emergency (ER) | payer OTHER ==
[2023-12-20] MEDS ORDERED: methocarbamoL 750 MG TAB ONE (21:23)
--- NOTE | 2023-12-20 22:12 | RAD REPORT ---
EXAM DESCRIPTION: RAD - Pelvis - 12/20/2023 10:05 pm CLINICAL HISTORY: fall Fall, trauma, pain COMPARISON: <Comparisons> FINDINGS: Moderate right and mild left hip osteoarthritis is present. Hardware is present at the lum bosacral junction. No acute fracture evident.
--- NOTE | 2023-12-20 22:13 | RAD REPORT ---
EXAM DESCRIPTION: RAD - Chest Single View - 12/20/2023 10:05 pm CLINICAL HISTORY: fall Chest pain. COMPARISON: <Comparisons> FINDINGS: Portable technique limits examination quality. The lungs are grossly clear. The heart is upper limit of normal in size. No displaced fractures. IMPRESSION: No acute intrathoracic process suspected.
--- NOTE | 2023-12-20 22:30 | RAD REPORT ---
EXAM DESCRIPTION: CT - Spine Lumbar Wo Con - 12/20/2023 10:22 pm CLINICAL HISTORY: Radiculopathy. fall COMPARISON: <Comparisons> TECHNIQUE: Axial noncontrast CT imaging of the lumbar spine was performed with coronal and sagittal re-formatted images. All CT scans are performed using dose optimization technique as appropriate and may include automated exposure control or mA/KV adjustment according to patient size. FINDINGS: There is high-grade compression fracture affecting the L1 vertebral body with vertebroplas ty cement present. This results in moderate central canal stenosis. Vertebroplasty cement is also pre sent in the L2 vertebral body which shows mild vacuum degeneration anteriorly. Hardware is in place with fixed grade 1-2 anterolisthesis of L5-S1 present. Postsurgical laminectomy changes are present at this level as well. No acute fracture suspected. IMPRESSION: No acute finding is demonstrated. High-grade L1 compression fracture resulting in moderate canal with vertebroplasty cement in place. Postsurgical changes with hardware in place with grade 1 2 anterolisthesis L5 on S1, chronic.
--- NOTE | 2023-12-20 22:45 | EDPHYS ---
Physician Documentation [facility] Name: Geronimo Davis Age: 68 yrs Sex: Female : 1955 Arrival Date: 12/20/2023 Time: 20:56 Bed 6 Private MD: ED Physician Juancarlos Mathis HPI: 12/19 21:16 This 68 yrs old Female presents to ER via Wheelchair with complaints of Fall ec2 Injury. 21:17 Patient arrives today for evaluation after ground-level fall. Patient reports that she ec2 fell while attempting to reach the couch. Patient planing of low back, right hip and right shoulder pain. No LOC, not on blood thinners.. Historical: - Allergies: 21:11 Darvocet-N 100; ap3 21:11 Morphine; ap3 21:11 Vicodin; ap3 21:11 Ibuprofen; ap3 21:11 Blueberry; ap3 - PMHx: 21:11 Chronic obstructive lung disease; cirrhosis of liver; diabetes mellitus; Hypertensive ap3 disorder; kidney disease; - PSHx: 21:11 Appendectomy; section; Cholecystectomy; hysterectomy; lumbar fusion; TIPS; ap3 - Immunization history:: Client reports having NOT received the Covid vaccine. Flu vaccine is not up to date. - Infectious Disease History:: Denies. - Immunization history: Last tetanus immunization: - up to date. - Social history:: Smoking status: Patient/guardian denies using tobacco, Stopped _ months ago 3. ROS: 21:17 Constitutional: as per hpi ec2 Exam: 21:17 Constitutional: GEN: No acute distress HEENT: -Head: no deformities -Eyes: EOMI CV: ec2 regular rate LUNGS: no respiratory distress ABD: non-tender SKIN: no wounds appreciated MSK: No C/T/L spine deformities, mild spine TTP without crepitus RUE w/o bony deformity LUE w/o bony deformity RLE w/o bony deformity LLE w/o bony deformity NEURO: moves all extremities equally, GCS 15 (E4, V5, M6) Vital Signs: 21:10 BP 144 / 67; Pulse 71; Resp 17; Temp 98.1; Pulse Ox 96% ; Weight 101.6 kg; Height 5 ft. ap3 4 in. ; Pain 10/10; 22:54 BP 145 / 65; Pulse 75; Resp 17; Temp 98.1; Pulse Ox 96% ; Pain 4/10; bm8 21:10 Body Mass Index 38.45 (101.60 kg, 162.56 cm) ap3 21:10 Pain Scale: Adult ap3 22:54 Pain Scale: Adult bm8 Parlin Coma Score: 21:13 Eye Response: spontaneous(4). Motor Response: obeys commands(6). Verbal Response: ap3 oriented(5). Total: 15. 21:41 Eye Response: spontaneous(4). Motor Response: obeys commands(6). Verbal Response: bm8 oriented(5). Total: 15. 22:54 Eye Response: spontaneous(4). Motor Response: obeys commands(6). Verbal Response: bm8 oriented(5). Total: 15. Trauma Score (Adult): 21:13 Eye Response: spontaneous(1); Verbal Response: oriented(1); Motor Response: obeys ap3 commands(2); Systolic BP: > 89 mm Hg(4); Respiratory Rate: 10 to 29 per min(4); Raymond Score: 15; Trauma Score: 12 22:54 Eye Response: spontaneous(1); Verbal Response: oriented(1); Motor Response: obeys bm8 commands(2); Systolic BP: > 89 mm Hg(4); Respiratory Rate: 10 to 29 per min(4); Parlin Score: 15; Trauma Score: 12 MDM: 21:08 Patient medically screened. ec2 21:17 Data reviewed: vital signs. ED course: Patient arrives today for evaluation of MSK pain ec2 after a fall. Examination remarkable for MSK findings as above. Will obtain radiograph as well as CT imaging. Differential includes contusion, fracture. Doubt intracranial brain bleed, doubt C-spine fracture given lack of focal pain, and reassuring examination.. 22:44 ED course: Chest x-ray independently reviewed and interpreted by me, shows no bony ec2 fracture. CT of the L-spine shows no bony fracture, no acute process identified. Pelvis x-ray shows arthritis without acute injury. Will discharge home. Return precautions given . 12/19 21:16 Order name: CXR XRAY; Complete Time: 22:43 ec2 12/19 21:16 Order name: CT Lumbar Spine Wo Con; Complete Time: 22:43 ec2 12/19 21:16 Order name: Pelvis XRAY; Complete Time: 22:43 ec2 Administered Medications: 21:25 Drug: Methocarbamol PO 750 mg PO once Route: PO; vc1 22:42 Follow up: Response: No adverse reaction bm8 22:48 CANCELLED (Physician Discretion): mg PO once ec2 Disposition Summary: 12/20/23 22:45 Discharge Ordered Notes: Location: Home ec2 Condition: Stable ec2 Diagnosis - Low back pain ec2 - Pain in right hip ec2 Followup: ec2 - With: Private Physician - When: - Reason: Re-evaluation by your physician Discharge Instructions: - Discharge Summary Sheet ec2 - Acute Back Pain, Adult ec2 Forms: - Medication Reconciliation Form ec2 - Antibiotic Education ec2 - Prescription Opioid Use ec2 - Patient Portal Instructions ec2 - Leadership Thank You Letter ec2 Signatures: Dispatcher [employer] Jennifer Long RN RN ap3 Rayna Barrientos RN RN vc1 Juancarlos Mathis MD MD ec2 Samuel Magallanes RN RN bm8 Corrections: (The following items were deleted from the chart) 22:48 22:45 traMADol PO 25 mg PO once ordered. ec2 ec2
--- NOTE | 2023-12-20 22:45 | ER ---
Nurse's Notes [facility] Name: Geronimo Davis Age: 68 yrs Sex: Female : 1955 Arrival Date: 12/20/2023 Time: 20:56 Bed 6 Private MD: Diagnosis: Low back pain;Pain in right hip Presentation: 12/19 21:10 Chief complaint: Patient states: she fell into the couch approx one hour [employer], patient ap3 currently complains of pain to her right hip, back and neck. patient rates her pain as a 10/10 on the pain scale at this time. Coronavirus screen: At this time, the client does not indicate any symptoms associated with coronavirus-19. Ebola Screen: No symptoms or risks identified at this time. Initial Sepsis Screen: Does the patient meet any 2 criteria? No. Patient's initial sepsis screen is negative. Does the patient have a suspected source of infection? No. Patient's initial sepsis screen is negative. Risk Assessment: Do you want to hurt yourself or someone else? Patient reports no desire to harm self or others. Onset of symptoms was December 20, 2023. 21:10 Method Of Arrival: Wheelchair ap3 21:13 Acuity: SARAHI 3 ap3 21:14 Care prior to arrival: None. Mechanism of Injury: Fall from standing position. Trauma ap3 event details: Injury occurred in the [facility], Injury occurred: at home. Injury occurred: December 20, 2023 Injury occurred at: 20:00. Triage Assessment: 21:12 General: Appears in no apparent distress. Behavior is calm, cooperative, appropriate ap3 for age. Pain: Complains of pain in back, right hip and neck Pain currently is 10 out of 10 on a pain scale. Neuro: Level of Consciousness is awake, alert, obeys commands, Oriented to person, place, time, situation, Appropriate for age. Cardiovascular: Patient's skin is warm and dry. Respiratory: Airway is patent Respiratory effort is even, unlabored, Respiratory pattern is regular, symmetrical. Historical: - Allergies: 21:11 Darvocet-N 100; ap3 21:11 Morphine; ap3 21:11 Vicodin; ap3 21:11 Ibuprofen; ap3 21:11 Blueberry; ap3 - PMHx: 21:11 Chronic obstructive lung disease; cirrhosis of liver; diabetes mellitus; Hypertensive ap3 disorder; kidney disease; - PSHx: 21:11 Appendectomy; section; Cholecystectomy; hysterectomy; lumbar fusion; TIPS; ap3 - Immunization history:: Client reports having NOT received the Covid vaccine. Flu vaccine is not up to date. - Infectious Disease History:: Denies. - Immunization history: Last tetanus immunization: - up to date. - Social history:: Smoking status: Patient/guardian denies using tobacco, Stopped _ months ago 3. Screenin:14 Abuse screen: Denies threats or abuse. Nutritional screening: No deficits noted. ap3 Tuberculosis screening: No symptoms or risk factors identified. 21:41 [facility] ED Fall Risk Assessment (Adult) History of falling in the last 3 months, bm8 including since admission Yes- single mechanical fall (1 pt) Confusion or Disorientation No (0 pts) Intoxicated or Sedated No (0 pts) Impaired Gait Yes (1 pt) Mobility Assist Device Used No (0 pt) Altered Elimination No (0 pt) Score/Fall Risk Level 0 - 2 = Low Risk Oriented to surroundings, Maintained a safe environment, Educated pt \T\ family on fall prevention, incl call for assistance when getting out of bed, Assessed \T\ reinforced patient's understanding of fall precautions, Hourly rounding (assess needs \T\ fall precautionary measures) done, Used ambulatory aids as needed (educated on \T\ assisted with), Used gait belt as appropriate. Primary Survey: 21:14 NO uncontrolled hemorrhage observed. A: The client is awake and alert. The airway is ap3 patent. Breathing/Chest: Spontaneous respiratory effort, equal unlabored respirations, breath sounds clear bilaterally, regular pattern, symmetrical chest rise and fall. Circulation: No external hemorrhage present. Regular and strong central pulse, skin warm/dry/normal color. Disability Client is alert. 22:56 Reassessment Breathing: Spontaneous respiratory effort, equal unlabored respirations, bm8 breath sounds clear bilaterally, regular pattern with symmetrical chest rise and fall. 22:56 Exposure/Environment: A warming method has been applied: A warm blanket has been bm8 provided to the patient. Reassessment Alertness and Airway: Awake and alert. The airway is patent. Airway Patent Circulation: No external hemorrhage noted. Regular and strong central pulse, skin warm/dry/normal color. Secondary Survey: 22:42 HEENT: No deficits noted. Gastrointestinal: No deficits noted. : No deficits noted. bm8 Musculoskeletal: Capillary refill < 3 seconds, in bilateral fingers. toes. Tenderness present in right leg Reports pain in right leg and neck and pelvis and back and right hip. Assessment: 21:41 Reassessment: Patient appears in no apparent distress at this time. Patient and/or bm8 family updated on plan of care and expected duration. Pain level reassessed. Patient is alert, oriented x 3, equal unlabored respirations, skin warm/dry/pink. General: Appears in no apparent distress. uncomfortable, Behavior is calm, cooperative, appropriate for age. Pain: Complains of pain in neck and pelvis and back and right hip Pain currently is 7 out of 10 on a pain scale. Quality of pain is described as aching, crampy. Neuro: Level of Consciousness is awake, alert, obeys commands, Oriented to person, place, time, situation, Appropriate for age. Cardiovascular: Denies chest pain, Capillary refill < 3 seconds Patient's skin is warm and dry. Respiratory: Airway is patent Respiratory effort is even, unlabored, Respiratory pattern is regular, symmetrical, Breath sounds are clear bilaterally. GI: No signs and/or symptoms were reported involving the gastrointestinal system. : No signs and/or symptoms were reported regarding the genitourinary system. EENT: No signs and/or symptoms were reported regarding the EENT system. Derm: No signs and/or symptoms reported regarding the dermatologic system. Musculoskeletal: Capillary refill < 3 seconds, in bilateral fingers. toes. Swelling present in right leg Tenderness present in neck and pelvis and back and right hip Reports pain in neck and pelvis and back and right hip. Vital Signs: 21:10 BP 144 / 67; Pulse 71; Resp 17; Temp 98.1; Pulse Ox 96% ; Weight 101.6 kg; Height 5 ft. ap3 4 in. ; Pain 10/10; 22:54 BP 145 / 65; Pulse 75; Resp 17; Temp 98.1; Pulse Ox 96% ; Pain 4/10; bm8 21:10 Body Mass Index 38.45 (101.60 kg, 162.56 cm) ap3 21:10 Pain Scale: Adult ap3 22:54 Pain Scale: Adult bm8 Elwood Coma Score: 21:13 Eye Response: spontaneous(4). Motor Response: obeys commands(6). Verbal Response: ap3 oriented(5). Total: 15. 21:41 Eye Response: spontaneous(4). Motor Response: obeys commands(6). Verbal Response: bm8 oriented(5). Total: 15. 22:54 Eye Response: spontaneous(4). Motor Response: obeys commands(6). Verbal Response: bm8 oriented(5). Total: 15. Trauma Score (Adult): 21:13 Eye Response: spontaneous(1); Verbal Response: oriented(1); Motor Response: obeys ap3 commands(2); Systolic BP: > 89 mm Hg(4); Respiratory Rate: 10 to 29 per min(4); Raymond Score: 15; Trauma Score: 12 22:54 Eye Response: spontaneous(1); Verbal Response: oriented(1); Motor Response: obeys bm8 commands(2); Systolic BP: > 89 mm Hg(4); Respiratory Rate: 10 to 29 per min(4); Raymond Score: 15; Trauma Score: 12 ED Course: 20:59 Patient arrived in ED. im 21:01 Juancarlos Mathis MD is Attending Physician. ec2 21:11 Triage completed. ap3 21:13 Arm band placed on right wrist. ap3 21:14 Patient maintains SpO2 saturation greater than 95% on room air. ap3 21:19 Samuel Magallanes, RN is Primary Nurse. bm8 21:41 Patient has correct armband on for positive identification. Bed in low position. Call bm8 light in reach. Side rails up X 1. Adult w/ patient. Client placed on continuous cardiac and pulse oximetry monitoring. NIBP monitoring applied. Pulse ox on. NIBP on. Door closed. Noise minimized. Pillow given. Verbal reassurance given. Head of bed elevated. 21:41 No provider procedures requiring assistance completed. bm8 22:07 CXR XRAY In Process Unspecified. EDMS 22:07 Pelvis XRAY In Process Unspecified. EDMS 22:21 CT Lumbar Spine Wo Con In Process Unspecified. EDMS 22:54 Provided Education on: post er care. bm8 22:54 Patient did not have IV access during this emergency room visit. bm8 22:56 Thermoregulation: warm blanket given to patient. bm8 Administered Medications: 21:25 Drug: Methocarbamol PO 750 mg PO once Route: PO; vc1 22:42 Follow up: Response: No adverse reaction bm8 22:48 CANCELLED (Physician Discretion): [id number] mg PO once ec2 Medication: 21:41 VIS not applicable for this client. bm8 Intake: 22:42 PO: 60ml (Water); Total: 60ml. bm8 Output: 22:42 Urine: 0ml; Total: 0ml. bm8 Outcome: 22:45 Discharge ordered by . ec2 22:54 Discharged to home via wheelchair, bm8 22:54 Condition: stable 22:54 Discharge instructions given to patient, family, Instructed on discharge instructions, follow up and referral plans. no drinking with medication, no driving heavy equipment, medication usage, safety practices, Demonstrated understanding of instructions, follow-up care, 22:56 Patient's length of stay was not longer than 2 hours. bm8 22:57 Patient left the ED. bm8 Signatures: Dispatcher [employer] Jennifer Long RN RN ap3 Rayna Barrientos RN RN vc1 Suzy Alaniz Edwin, MD MD ec2 Samuel Magallanes RN RN bm8 Corrections: (The following items were deleted from the chart) 21:14 21:10 Acuity: SARAHI 4 ap3 ap3
[2023-12-20 23:40] VITALS: TEMP 98.1; O2SAT 96
[2023-12-20 23:42] VITALS: BP 145/65
== END 2023-12-20 22:57 | disposition home or self-care (01) ==
LOC: ER 20:56
DX: M54.50 Low back pain, unspecified (principal); M25.551 Pain in right hip; M25.511 Pain in right shoulder; W18.30XA Fall on same level, unspecified, initial encounter; Y92.009 Unspecified place in unspecified non-institutional (private) residence as the place of occurrence of the external cause
CPT/HCPCS: 71045; 72131; 72170; 99284

== ENCOUNTER 2024-04-18 11:02 | Emergency (ER) | payer OTHER ==
[2024-04-18] MEDS ORDERED: TRAMADOL HCL 50 MG TAB ONE (11:26)
--- NOTE | 2024-04-18 12:16 | RAD REPORT ---
EXAMINATION: CT LUMBAR SPINE WITHOUT CONTRAST CLINICAL INDICATION: Female, 68 years old. fall;Pain TECHNIQUE: Axial CT images were obtained through the lumbar spine in soft tissue and bone windows wit hout intravenous contrast. Coronal and Sagittal reformatted images were created from the data set. One or more of the following dose reduction techniques were used: Automated exposure control, adjustm ent of the mA and/ or kV according to patient size, and/or iterative reconstruction. Unless otherwise specified, incidental findings do not require dedicated imaging follow-up. COMPARISON: 12/20/2023, 04/08/2023 FINDINGS: For purposes of this dictation, it is assumed that there are 5 non rib-bearing lumbar type vertebrae, and the most caudal fully segmented lumbar vertebra is labeled L5. ALIGNMENT: 13 mm anterolisthesis L5 on S1. Posterior fusion changes are present at the L5-S1 level. L aminectomy is noted at the L5 and S1 level. BONES: Significant remote compression fracture, with vertebroplasty cement in place affects T12. Vert ebroplasty cement in mild compression fracture also L1. DISCS: Advanced disc space loss is present T12-L1. LEVELS: Moderate central canal narrowing T12-L1. Elsewhere no evidence of significant canal narrowing . SOFT TISSUE: No soft tissue abnormalities. IMPRESSION: No acute lumbar spine abnormalities. Additional abnormalities detailed above are unchanged since 12/20/2023
--- NOTE | 2024-04-18 12:21 | RAD REPORT ---
EXAM: CT PELVIS WITHOUT CONTRAST HISTORY: fall, pelvis COMPARISON: None TECHNIQUE: Multiple contiguous axial images were obtained and a CT of the pelvis with IV contrast. Sa gittal and coronal reformats were performed. One or more of the following dose reduction techniques were used: Automated exposure control, adjustment of the mA and/or kV according to patient size, and/ or iterative reconstruction. FINDINGS: No pelvic fractures are seen. No fracture of either proximal femur is seen. Moderate degene rative arthritic changes right hip. Lower lumbar hardware with laminectomy in place. The visualized intrapelvic structures are unremarkable. The soft tissues surrounding the pelvis are unremarkable. IMPRESSION: No acute bony pelvic abnormality. Moderate right hip arthritic changes.
--- NOTE | 2024-04-18 13:59 | ER ---
Nurse's Notes [facility] Name: Geronimo Davis Age: 68 yrs Sex: Female : 1955 Arrival Date: 04/18/2024 Time: 11:02 Bed IW1 Private MD: Diagnosis: Low back pain;Pain in right hip Presentation: 04/18 11:27 Chief complaint: Patient states: Fell on 04/06/24, bilateral hip pain, worse on the jl7 right. Coronavirus screen: At this time, the client does not indicate any symptoms associated with coronavirus-19. Ebola Screen: No symptoms or risks identified at this time. Initial Sepsis Screen: Does the patient meet any 2 criteria? No. Patient's initial sepsis screen is negative. Does the patient have a suspected source of infection? No. Patient's initial sepsis screen is negative. Risk Assessment: Do you want to hurt yourself or someone else? Patient reports no desire to harm self or others. Onset of symptoms was April 06, 2024. 11:27 Method Of Arrival: Wheelchair jl7 11:27 Acuity: SARAHI 4 jl7 Triage Assessment: 11:28 General: Appears in no apparent distress. uncomfortable, Behavior is calm, cooperative, jl7 appropriate for age. Pain: Complains of pain in bilateral hips Pain currently is 9 out of 10 on a pain scale. Historical: - Allergies: 11:28 Blueberry; jl7 11:28 Darvocet-N 100; jl7 11:28 Ibuprofen; jl7 11:28 Morphine; jl7 11:28 Vicodin; jl7 - PMHx: 11:28 Chronic obstructive lung disease; cirrhosis of liver; diabetes mellitus; Hypertensive jl7 disorder; kidney disease; - PSHx: 11:28 Appendectomy; section; Cholecystectomy; hysterectomy; lumbar fusion; TIPS; jl7 - Immunization history:: Adult Immunizations unknown. - Infectious Disease History:: Denies. - Social history:: Smoking status: Patient/guardian denies using tobacco, Stopped _ months ago 6. - Family history:: not pertinent. - Hospitalizations: : No recent hospitalization is reported. Vital Signs: 11:27 BP 148 / 69; Pulse 71; Resp 17; Temp 98.1; Pulse Ox 98% ; Weight 105.23 kg; Height 5 jl7 ft. 4 in. ; Pain 9/10; 11:27 Body Mass Index 39.82 (105.23 kg, 162.56 cm) jl7 11:27 Pain Scale: Adult jl7 ED Course: 11:04 Patient arrived in ED. mr 11:04 Arnaldo Blake MD is Attending Physician. rn 11:28 Triage completed. jl7 11:28 Arm band placed on right wrist. jl7 11:41 CT Lumbar Spine Wo Con In Process Unspecified. EDMS 11:41 CT Pelvis wo Cont In Process Unspecified. EDMS 15:36 No provider procedures requiring assistance completed. Patient did not have IV access ss during this emergency room visit. Administered Medications: 11:32 Drug: traMADol PO 50 mg PO once Route: PO; jl7 Outcome: 13:59 Discharge ordered by . rn 15:36 Discharged to home ambulatory, ss 15:36 Condition: good 15:36 Discharge instructions given to patient, Instructed on discharge instructions, follow up and referral plans. Demonstrated understanding of instructions, follow-up care, 15:38 Patient left the ED. ss Signatures: Dispatcher [employer] EDVT Peyton Browning, Reg Reg Arnaldo Blake MD MD rn Blanchard, Shelby, RN RN ss Leal, Jahala, RN RN jl7
--- NOTE | 2024-04-18 14:00 | EDPHYS ---
Physician Documentation [facility] Name: Geronimo Davis Age: 68 yrs Sex: Female : 1955 Arrival Date: 04/18/2024 Time: 11:02 Bed IW1 Private MD: ED Physician Arnaldo Blake HPI: 04/18 11:37 This 68 yrs old Female presents to ER via Wheelchair with complaints of Hip Pain, Back rn Pain. 11:37 The patient or guardian reports pain. The complaints affect the Right hip and pelvis. rn Severity of symptoms: At their worst the symptoms were moderate, in the emergency department the symptoms are unchanged. The patient has experienced similar episodes in the past. Patient reports fall 12 days ago, was not evaluated at that time, has chronic back and hip pain from previous trauma and surgeries of the spine, feels like the fall aggravated her chronic pain. No bowel or bladder issues. No weakness of the lower extremities. Takes tramadol daily. Has worsening cirrhosis and kidney disease.. Historical: - Allergies: 11:28 Blueberry; jl7 11:28 Darvocet-N 100; jl7 11:28 Ibuprofen; jl7 11:28 Morphine; jl7 11:28 Vicodin; jl7 - PMHx: 11:28 Chronic obstructive lung disease; cirrhosis of liver; diabetes mellitus; Hypertensive jl7 disorder; kidney disease; - PSHx: 11:28 Appendectomy; section; Cholecystectomy; hysterectomy; lumbar fusion; TIPS; jl7 - Immunization history:: Adult Immunizations unknown. - Infectious Disease History:: Denies. - Social history:: Smoking status: Patient/guardian denies using tobacco, Stopped _ months ago 6. - Family history:: not pertinent. - Hospitalizations: : No recent hospitalization is reported. ROS: 11:37 Constitutional: Negative for fever, chills, and weight loss, Neck: Negative for injury, rn pain, and swelling, Cardiovascular: Negative for chest pain, palpitations, and edema, Respiratory: Negative for shortness of breath, cough, wheezing, and pleuritic chest pain, Abdomen/GI: Negative for abdominal pain, nausea, vomiting, diarrhea, and constipation, Back: Positive for back pain MS/Extremity: Negative for injury and deformity, Skin: Negative for injury, rash, and discoloration, Neuro: Negative for headache, weakness, numbness, tingling, and seizure, Exam: 11:37 Constitutional: This is a well developed, well nourished patient who is awake, alert rn in wheelchair, no acute distress, Head/Face: Normocephalic, atraumatic. Cardiovascular: Regular rate and rhythm. No pulse deficits. Back: No spinal tenderness. No costovertebral tenderness. MS/ Extremity: Pulses equal, no cyanosis. Neurovascular intact. Full, normal range of motion. Equal circumference. Neuro: Awake and alert, GCS 15, oriented to person, place, time, and situation. Motor strength 5/5 in all extremities. Sensory grossly intact. Vital Signs: 11:27 BP 148 / 69; Pulse 71; Resp 17; Temp 98.1; Pulse Ox 98% ; Weight 105.23 kg; Height 5 jl7 ft. 4 in. ; Pain 9/10; 11:27 Body Mass Index 39.82 (105.23 kg, 162.56 cm) jl7 11:27 Pain Scale: Adult jl7 MDM: 11:04 Medical Screening Exam initiated rn 13:57 Differential diagnosis: hip fracture, bursitis, arthritis, strain. Data reviewed: vital rn signs, nurses notes, radiologic studies, CT scan, and as a result, I will discharge patient. Counseling: I had a detailed discussion with the patient and/or guardian regarding the historical points, exam findings, and any diagnostic results supporting the discharge/admit diagnosis, radiology results, the need for outpatient follow up, to return to the emergency department if symptoms worsen or persist or if there are any questions or concerns that arise at home. Special discussion: I discussed with the patient/guardian in detail that at this point there is no indication for admission to the hospital. It is understood, however, that if the symptoms persist or worsen the patient needs to return immediately for re-evaluation. ED course: No acute findings and CAT scan. No evidence of acute fracture from subacute fall. Findings seem chronic. Already on tramadol at home. Will defer pain management to PCP.. 04/18 11:22 Order name: CT Lumbar Spine Wo Con; Complete Time: 12:40 rn 04/18 11:22 Order name: CT Pelvis wo Cont; Complete Time: 12:40 rn Administered Medications: 11:32 Drug: traMADol PO 50 mg PO once Route: PO; jl7 Disposition Summary: 04/18/24 13:59 Discharge Ordered Notes: Location: Home rn Problem: chronic rn Symptoms: have improved rn Condition: Stable rn Diagnosis - Low back pain rn - Pain in right hip rn Followup: rn - With: Private Physician - When: As needed - Reason: Recheck today's complaints, Re-evaluation by your physician Discharge Instructions: - Discharge Summary Sheet rn - Chronic Back Pain rn - Hip Pain rn Forms: - Medication Reconciliation Form rn - Antibiotic yarn conditioner - Prescription Opioid Use rn - Patient Portal Instructions rn - Leadership Thank You Letter rn Signatures: Dispatcher [employer] Arnaldo Rico MD MD rn Leal, Jahala, RN RN jl7
[2024-04-18 19:17] VITALS: BP 148/69; TEMP 98.1; O2SAT 98
== END 2024-04-18 15:38 | disposition home or self-care (01) ==
LOC: ER 11:02
DX: M54.50 Low back pain, unspecified (principal); M25.551 Pain in right hip
CPT/HCPCS: 72131; 72192; 99283

== ENCOUNTER 2024-06-18 14:27 | Emergency (ER) | payer OTHER ==
--- NOTE | 2024-06-18 15:49 | RAD REPORT ---
EXAM: Chest Single View HISTORY: 68 years Female Congestion;Cough COMPARISON: 12/20/2023 FINDINGS: LUNGS/PLEURA: Similar prominence of the pulmonary interstitium. No consolidation. No definite edema t merly vascular congestion may be present. CARDIAC/MEDIASTINUM: Mild cardiomegaly UPPER ABDOMEN: No significant abnormality. BONES: No acute abnormality. LINES/TUBES/OTHER: N/A IMPRESSION: No evidence of acute cardiopulmonary disease. No significant change from prior.
--- NOTE | 2024-06-18 16:40 | EDPHYS ---
Physician Documentation [facility] Name: Geronimo Davis Age: 68 yrs Sex: Female : 1955 Arrival Date: 06/18/2024 Time: 14:27 Bed 13 Private MD: ED Physician Juancarlos Mathis HPI: 06/18 18:12 This 68 yrs old Female presents to ER via Wheelchair with complaints of Rib dr5 pain. 18:12 Onset: The symptoms/episode began/occurred 3 day(s) ago. 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 Patient denies any back pain red flags such as fever, urinary or bowel incontinence, perirectal numbness, numbness or tingling to legs.. Historical: - Allergies: 14:53 Blueberry; cm10 14:53 Darvocet-N 100; cm10 14:53 Ibuprofen; cm10 14:53 Morphine; cm10 14:53 Vicodin; cm10 14:53 INSULINS; cm10 - PMHx: 14:53 Chronic obstructive lung disease; cirrhosis of liver; diabetes mellitus; Hypertensive cm10 disorder; kidney disease; Eugenia-Danlos Syndrome; - PSHx: 14:53 Appendectomy; section; Cholecystectomy; hysterectomy; lumbar fusion; TIPS; cm10 - Immunization history:: Adult Immunizations up to date. - Infectious Disease History:: Denies. - Social history:: Smoking status: Patient/guardian denies using tobacco, Stopped _ months ago 6. ROS: 18:12 Constitutional: as per hpi dr5 Exam: 18:12 Constitutional: This is a well developed, well nourished patient who is awake, alert, dr5 and in no acute distress. Head/Face: Normocephalic, atraumatic. Eyes: Pupils equal round and reactive to light, extra-ocular motions intact. Lids and lashes normal. Conjunctiva and sclera are non-icteric and not injected. Cornea within normal limits. Periorbital areas with no swelling, redness, or edema. Neck: Trachea midline, no thyromegaly or masses palpated, and no cervical lymphadenopathy. Supple, full range of motion without nuchal rigidity, or vertebral point tenderness. No Meningismus. Chest/axilla: Normal chest wall appearance and motion. Nontender with no deformity. No lesions are appreciated. Cardiovascular: Regular rate and rhythm with a normal S1 and S2. Normal PMI, no JVD. No pulse deficits. Respiratory: Lungs have equal breath sounds bilaterally, clear to auscultation. No rales, rhonchi or wheezes noted. No increased work of breathing, no retractions or nasal flaring. Skin: Warm, dry with normal turgor. Normal color with no rashes, no lesions, and no evidence of cellulitis. Neuro: Awake and alert, GCS 15, oriented to person, place, time, and situation. Cranial nerves II-XII grossly intact. Motor strength 5/5 in all extremities. Sensory grossly intact. Cerebellar exam normal. Normal gait. 18:12 Musculoskeletal/extremity: Extremities: all appear grossly normal, with no appreciated pain with palpation, ROM: no acute changes, Circulation is intact in all extremities. the right mid back Vital Signs: 14:51 BP 164 / 57; Pulse 71; Resp 20; Temp 98.2; Pulse Ox 98% on R/A; Weight 102.51 kg; cm10 Height 5 ft. 4 in. ; Pain 9/10; 17:05 BP 131 / 57; Pulse 68; Resp 15; Pulse Ox 99% on R/A; cm10 14:51 Body Mass Index 38.79 (102.51 kg, 162.56 cm) cm10 14:51 Pain Scale: Adult cm10 MDM: 14:51 Medical Screening Exam initiated dr5 18:12 Differential diagnosis: viral Infection, bacterial infection, URI. Data reviewed: vital dr5 signs, nurses notes. I considered the following discharge prescriptions or medication management in the emergency department Medications were administered in the Emergency Department. See MAR. Care significantly affected by the following chronic conditions: Diabetes, Hypertension, Liver Disease. Care significantly affected by the following Social Determinants of Health: Poor access to healthcare and/or lack of insurance, Poor access to transportation, Problems related to employment. Counseling: I had a detailed discussion with the patient and/or guardian regarding the historical points, exam findings, and any diagnostic results supporting the discharge/admit diagnosis, the presence of at least one elevated blood pressure reading (>120/80) during this emergency department visit, radiology results, the need for outpatient follow up, for definitive care, a family practitioner, to return to the emergency department if symptoms worsen or persist or if there are any questions or concerns that arise at home. ED course: Chest x-ray did not reveal any pneumonia or rib fracture. Lidocaine patch placed in the ER. Will trial patient on short course of low-dose steroids. Patient will follow-up with primary care doctor this week for further management and will return to ER for worsening conditions or other concerns. 06/18 15:05 Order name: Chest Single View XRAY; Complete Time: 16:12 dr5 Administered Medications: 17:00 Drug: Lidoderm Topical Patch 5 % (700 mg/patch) 1 patches Topical once; leave on for 12 cm10 hours; cover most painful area; may cut into smaller pieces Route: Topical; Site: affected area; Disposition Summary: 06/18/24 16:39 Discharge Ordered Notes: Location: Home dr5 Condition: Stable dr5 Diagnosis - Muscle spasm of back dr5 Followup: dr5 - With: Emergency Department - When: As needed - Reason: Worsening of condition Followup: dr5 - With: Private Physician - When: 1 - 2 days - Reason: Recheck today's complaints, Continuance of care, Re-evaluation by your physician Discharge Instructions: - Discharge Summary Sheet dr5 - Muscle Cramps and Spasms dr5 - Back Injury Prevention, [id number] dr5 Forms: - Medication Reconciliation Form dr5 - Patient Portal Instructions dr5 - Leadership Thank You Letter dr5 Prescriptions: - Prednisone 20 mg Oral Tablet - take 1 tablet ORAL route once daily for 5 days; 5 tablet; Refills: 0, Product dr5 Selection Permitted Signatures: Dispatcher [employer] Aliyah Olivarez RN RN cm10 Jasper Angel, NICA-C FOOD SERVICE CLERK-Cdr5
--- NOTE | 2024-06-18 16:40 | ER ---
Nurse's Notes [facility] Name: Geronimo Davis Age: 68 yrs Sex: Female : 1955 Arrival Date: 06/18/2024 Time: 14:27 Bed 13 Private MD: Diagnosis: Muscle spasm of back Presentation: 06/18 14:51 Chief complaint: Patient states: Right rib posterior rib pain onset 4 days ago. Pt cm10 states that she was dry heaving and felt something pop in her back. Pt states that she has shortness of breath due to the pain. Coronavirus screen: Client denies travel out of the [place] in the last 14 days. Ebola Screen: Patient denies travel to an Ebola-affected area in the 21 days before illness onset. Initial Sepsis Screen: Does the patient meet any 2 criteria? No. Patient's initial sepsis screen is negative. Does the patient have a suspected source of infection? No. Patient's initial sepsis screen is negative. Risk Assessment: Do you want to hurt yourself or someone else? Patient reports no desire to harm self or others. Onset of symptoms was June 18, 2024. 14:51 Method Of Arrival: Wheelchair cm10 14:51 Acuity: SARAHI 3 cm10 Triage Assessment: 14:54 General: Appears uncomfortable, Behavior is calm, cooperative. Pain: Complains of pain cm10 in right lateral posterior chest Pain currently is 9 out of 10 on a pain scale. Neuro: No deficits noted. Level of Consciousness is awake, alert, obeys commands, Oriented to person, place, time, situation, Appropriate for age. Respiratory: No deficits noted. Reports shortness of breath pain with cough pain with respiration Airway is patent Respiratory effort is even, unlabored, Respiratory pattern is regular, symmetrical, Breath sounds with wheezes bilaterally. Historical: - Allergies: 14:53 Blueberry; cm10 14:53 Darvocet-N 100; cm10 14:53 Ibuprofen; cm10 14:53 Morphine; cm10 14:53 Vicodin; cm10 14:53 INSULINS; cm10 - PMHx: 14:53 Chronic obstructive lung disease; cirrhosis of liver; diabetes mellitus; Hypertensive cm10 disorder; kidney disease; Eugenia-Danlos Syndrome; - PSHx: 14:53 Appendectomy; section; Cholecystectomy; hysterectomy; lumbar fusion; TIPS; cm10 - Immunization history:: Adult Immunizations up to date. - Infectious Disease History:: Denies. - Social history:: Smoking status: Patient/guardian denies using tobacco, Stopped _ months ago 6. Screenin:00 [facility] ED Fall Risk Assessment (Adult) History of falling in the last 3 months, cm10 including since admission No falls in past 3 months (0 pts) Confusion or Disorientation No (0 pts) Intoxicated or Sedated No (0 pts) Impaired Gait Yes (1 pt) Mobility Assist Device Used Yes (1 pt) Altered Elimination No (0 pt) Score/Fall Risk Level 0 - 2 = Low Risk Oriented to surroundings, Maintained a safe environment, Hourly rounding (assess needs \T\ fall precautionary measures) done. Abuse screen: Denies threats or abuse. Denies injuries from another. Nutritional screening: No deficits noted. Tuberculosis screening: No symptoms or risk factors identified. Assessment: 17:05 Reassessment: Patient appears in no apparent distress at this time. No changes from cm10 previously documented assessment. Patient and/or family updated on plan of care and expected duration. Pain level reassessed. Patient is alert, oriented x 3, equal unlabored respirations, skin warm/dry/pink. Vital Signs: 14:51 BP 164 / 57; Pulse 71; Resp 20; Temp 98.2; Pulse Ox 98% on R/A; Weight 102.51 kg; cm10 Height 5 ft. 4 in. ; Pain 9/10; 17:05 BP 131 / 57; Pulse 68; Resp 15; Pulse Ox 99% on R/A; cm10 14:51 Body Mass Index 38.79 (102.51 kg, 162.56 cm) cm10 14:51 Pain Scale: Adult cm10 ED Course: 14:35 Patient arrived in ED. im 14:38 [facility]C [facility] 14:38 Juancarlos Mathis MD is Attending Physician. dr5 14:51 Aliyah Guevara, NADJA is Primary Nurse. cm10 14:52 Triage completed. cm10 14:54 Arm band placed on right wrist. Patient placed in an exam room, on a stretcher, on cm10 pulse oximetry. 15:00 Patient has correct armband on for positive identification. Placed in gown. Bed in low cm10 position. Call light in reach. Side rails up X2. Provided Education on: ER process and procedures,. 15:28 Chest Single View XRAY In Process Unspecified. EDMS 17:05 No provider procedures requiring assistance completed. Patient did not have IV access cm10 during this emergency room visit. Administered Medications: 17:00 Drug: Lidoderm Topical Patch 5 % (700 mg/patch) 1 patches Topical once; leave on for 12 cm10 hours; cover most painful area; may cut into smaller pieces Route: Topical; Site: affected area; Medication: 15:00 VIS not applicable for this client. cm10 Outcome: 16:39 Discharge ordered by MD. dr5 17:06 Discharged to home via wheelchair, with family, cm10 17:06 Condition: good 17:06 Discharge instructions given to patient, Instructed on discharge instructions, follow up and referral plans. medication usage, Demonstrated understanding of instructions, follow-up care, medications, Prescriptions given X 2, 17:06 Patient left the ED. cm10 Signatures: Dispatcher [employer] EDMS Suzy Alaniz Clarissa, RN RN cm10 Jasper Angel, TOE CLOSING MACHINE TENDER-C TOE CLOSING MACHINE TENDER-Cdr5
[2024-06-18] MEDS ORDERED: LIDOCAINE 4% PATCH ONE (16:44)
[2024-06-18 17:11] VITALS: TEMP 98.2
[2024-06-18 17:13] VITALS: BP 131/57; O2SAT 99
== END 2024-06-18 17:06 | disposition home or self-care (01) ==
LOC: ER 14:27
DX: M62.830 Muscle spasm of back (principal); I10 Essential (primary) hypertension; E11.9 Type 2 diabetes mellitus without complications; Z87.891 Personal history of nicotine dependence; Z88.5 Allergy status to narcotic agent; Z88.8 Allergy status to other drugs, medicaments and biological substances; Z91.018 Allergy to other foods
CPT/HCPCS: 71045; J2003

== ENCOUNTER 2024-08-15 14:43 | Emergency (ER) | payer OTHER ==
--- NOTE | 2024-08-15 17:36 | RAD REPORT ---
EXAM: CT brain without contrast HISTORY: fall, neck pain COMPARISON: 04/08/2023 TECHNIQUE: Multiple contiguous axial images were obtained and a CT of the brain without contrast. Sag ittal and coronal reformats were performed. FINDINGS: No evidence of hydrocephalus, intracranial hemorrhage, or extra-axial fluid collection. The brain is normal in morphology. The calvarium is intact. The visualized paranasal sinuses and mastoid air cells are essentially clear . IMPRESSION: No evidence of acute intracranial abnormality. EXAM: CT of the cervical spine without contrast HISTORY: fall, neck pain COMPARISON: None TECHNIQUE: Multiple contiguous axial images were obtained in a CT of the cervical spine without contr ast. Sagittal and coronal reformats were performed. FINDINGS: The vertebral bodies demonstrate normal height and alignment. No evidence of acute fracture or subluxation.. Stable mild degenerative changes at C6-7 contributing to up to moderate left neural foraminal narrowing at that level. No prevertebral soft tissue swelling is seen. The posterior facets are well aligned. Normal alignment of the skull base with the cervical spine is seen. The lung apices are unremarkable. IMPRESSION: No evidence of acute osseous abnormality of the cervical spine.
--- NOTE | 2024-08-15 18:23 | RAD REPORT ---
EXAMINATION: CT Thorax Wo Con CLINICAL INDICATION: Female, 68 years old. blunt trauma, right shoulder/scapula pain TECHNIQUE: Axial CT scan of the chest without intravenous contrast. Multiplanar reformats were genera jean carlos and reviewed. One or more of the following dose reduction techniques were used: Automated exposure control, adjustment of the mA and/or kV according patient size, and/or iterative reconstruct ion. Unless otherwise specified, incidental findings do not require dedicated imaging follow-up. COMPARISON: 05/04/2023 FINDINGS: LOWER NECK: Visualized thyroid gland and soft tissues are normal. LUNGS: Elevation of the left hemidiaphragm. The lungs are clear. No evidence of airspace or interstit ial process. No worrisome nodules. PLEURA: No pleural effusion. No pneumothorax. . MEDIASTINUM AND LYMPH NODES: No mediastinal mass or fluid collection. Normal size mediastinal, hilar, and axillary lymph nodes. OSSEOUS STRUCTURES AND CHEST WALL: Intact. UPPER ABDOMEN: Coil embolization material near the epigastrium again seen. TIPS in place. Small right upper renal pole cysts, partially visualized. IMPRESSION: No acute or traumatic abnormalities. Examination is limited by lack of contrast.
--- NOTE | 2024-08-15 18:23 | RAD REPORT ---
EXAMINATION: XR RIGHT SHOUDLER CLINICAL INDICATION: Female, 68 years old. PAIN RIGHT TECHNIQUE:Two view radiograph of the right shoulder were obtained. COMPARISON: No prior exam. FINDINGS: No acute bone or joint abnormality detected. Mild AC joint degenerative changes. Mild degen erative changes with marginal spur burning of the humeral head. IMPRESSION: No acute osseous abnormalities. Degenerative changes as above.
--- NOTE | 2024-08-15 18:24 | RAD REPORT ---
EXAMINATION: XR PELVIS CLINICAL INDICATION: Female, 68 years old. [facility] MAIN BLUNT TRAUMA Bed Name: 3 TECHNIQUE: AP Pelvis radiograph was obtained. COMPARISON: CT pelvis 04/18/2024. FINDINGS: No evidence of fracture or dislocation. Normal alignment. Asymmetric moderate to advanced r ight hip joint degenerative changes, stable. No evidence of AVN. Soft tissues are unremarkable. IMPRESSION: No acute osseous abnormalities. Degenerative changes as above.
--- NOTE | 2024-08-15 18:28 | EDPHYS ---
Physician Documentation [facility] Name: Geronimo Davis Age: 68 yrs Sex: Female : 1955 Arrival Date: 08/15/2024 Time: 14:43 Bed IW1 Private MD: ED Physician Arnaldo Blake HPI: 08/15 15:14 This 68 yrs old Female presents to ER via Ambulatory with complaints of Fall Injury. rn 15:14 Details of fall: The patient fell from an upright position. Onset: The symptoms/episode rn began/occurred last night. Associated injuries: The patient sustained injury to the head, neck injury. Severity of symptoms: At their worst the symptoms were mild, in the emergency department the symptoms are unchanged. Patient reports fall last night in bedroom, fell forward, hit head. Reports pain to head/neck/right scapula and right shoulder. No rib pain or tenderness. No abdominal pain. No lower back pain. No mid back pain. Denies injury or new pain to lower extremities, reports chronic bilateral hip pain. Patient reports mechanical fall and right leg gave out due to chronic hip problems.. Historical: - Allergies: 15:07 Blueberry; ld1 15:07 Darvocet-N 100; ld1 15:07 Ibuprofen; ld1 15:07 INSULINS; ld1 15:07 Morphine; ld1 15:07 Vicodin; ld1 - PMHx: 15:07 Chronic obstructive lung disease; cirrhosis of liver; diabetes mellitus; cathie-danlos ld1 syndrome; Hypertensive disorder; kidney disease; - PSHx: 15:07 Appendectomy; section; Cholecystectomy; hysterectomy; lumbar fusion; TIPS; ld1 - Immunization history:: Adult Immunizations up to date. - Infectious Disease History:: Denies. - Social history:: Smoking status: Patient denies any tobacco usage or history of. - Family history:: not pertinent. - Hospitalizations: : No recent hospitalization is reported. ROS: 15:14 Constitutional: Negative for fever, chills, and weight loss, Neck: Positive for neck rn pain Cardiovascular: Negative for chest pain, palpitations, and edema, Respiratory: Negative for shortness of breath, cough, wheezing, and pleuritic chest pain, Abdomen/GI: Negative for abdominal pain, nausea, vomiting, diarrhea, and constipation, Back: Positive for upper back pain and scapular pain MS/Extremity: Positive for right shoulder injury and pain Skin: Negative for injury, rash, and discoloration, Neuro: Positive for headache, negative for focal weakness or numbness. No seizure Exam: 15:14 Constitutional: This is a well developed, well nourished patient who is awake, alert, rn and in no acute distress. Head/Face: Normocephalic, atraumatic. Neck: No midline cervical tenderness or swelling. No masses. Chest/axilla: No rib tenderness or crepitus Cardiovascular: Regular rate and rhythm. No pulse deficits. Respiratory: No increased work of breathing, no retractions or nasal flaring. Abdomen/GI: Soft, non-tender Back: No spinal tenderness MS/ Extremity: Pulses equal, no cyanosis. Neurovascular intact. Full, normal range of motion. Equal circumference. Neuro: Awake and alert, GCS 15 Vital Signs: 15:05 BP 151 / 73; Pulse 69; Resp 18; Temp 97.2(TE); Pulse Ox 100% on R/A; Weight 105.69 kg; ld1 Height 5 ft. 4 in. ; Pain 9/10; 15:05 Body Mass Index 39.99 (105.69 kg, 162.56 cm) ld1 15:05 Pain Scale: Adult ld1 MDM: 14:47 Medical Screening Exam initiated rn 18:26 Differential diagnosis: closed head injury, contusion, fracture, multiple trauma, rn sprain, strain. Data reviewed: vital signs, nurses notes, radiologic studies, CT scan, plain films, and as a result, I will discharge patient. Counseling: I had a detailed discussion with the patient and/or guardian regarding the historical points, exam findings, and any diagnostic results supporting the discharge/admit diagnosis, radiology results, the need for outpatient follow up, to return to the emergency department if symptoms worsen or persist or if there are any questions or concerns that arise at home. Response to treatment: the patient's symptoms have mildly improved after treatment, and as a result, I will discharge patient. Special discussion: I discussed with the patient/guardian in detail that at this point there is no indication for admission to the hospital. It is understood, however, that if the symptoms persist or worsen the patient needs to return immediately for re-evaluation. ED course: No acute traumatic findings in CT imaging or x-ray. Will discharge home as contusion with [id number] medication and return precautions.. 08/15 15:12 Order name: CT Head C Spine; Complete Time: 18:26 rn 08/15 15:12 Order name: CT Chest Wo Con; Complete Time: 18:26 rn 08/15 15:12 Order name: XRAY Shoulder RIGHT 2 view; Complete Time: 18:26 rn 08/15 15:12 Order name: XRAY Pelvis; Complete Time: 18:26 rn Administered Medications: No medications were administered Disposition Summary: 08/15/24 18:28 Discharge Ordered Notes: Location: Home rn Problem: new rn Symptoms: have improved rn Condition: Stable rn Diagnosis - Contusion of right shoulder rn - Fall on same level, unspecified rn - Sprain of joints and ligaments of other parts of neck, initial encounter rn Followup: rn - With: Private Physician - When: As needed - Reason: Recheck today's complaints, Re-evaluation by your physician Discharge Instructions: - Discharge Summary Sheet rn - Contusion rn - Cervical Sprain rn Forms: - Medication Reconciliation Form rn - Antibiotic rn document improvement - Prescription Opioid Use rn - Patient Portal Instructions rn - Leadership Thank You Letter rn Signatures: Dispatcher [employer] EDArnaldo Burns MD MD rn Sims, Lauren, RN RN ld1 Corrections: (The following items were deleted from the chart) 15:12 15:12 Head C Spine MPR Wo Con+CT.RAD.BRZ ordered. EDMS EDMS 15:12 15:12 Thorax Wo Con+CT.RAD.BRZ ordered. EDMS EDMS 15:12 15:12 Shoulder Right 2 View+RAD.RAD.BRZ ordered. EDMS EDMS
--- NOTE | 2024-08-15 18:28 | ER ---
Nurse's Notes [facility] Name: Geronimo Davis Age: 68 yrs Sex: Female : 1955 Arrival Date: 08/15/2024 Time: 14:43 Bed IW1 Private MD: Diagnosis: Contusion of right shoulder;Fall on same level, unspecified;Sprain of joints and ligaments of other parts of neck, initial encounter Presentation: 08/15 15:05 Chief complaint: Patient states: Fell late last night. Reports having bad hip, was ld1 walking and hip gave out. Reports pain to back, right shoulder blade, neck. Coronavirus screen: At this time, the client does not indicate any symptoms associated with coronavirus-19. Ebola Screen: No symptoms or risks identified at this time. Initial Sepsis Screen: Does the patient meet any 2 criteria? No. Patient's initial sepsis screen is negative. Does the patient have a suspected source of infection? No. Patient's initial sepsis screen is negative. Risk Assessment: Do you want to hurt yourself or someone else? Patient reports no desire to harm self or others. Onset of symptoms was August 15, 2024. 15:05 Method Of Arrival: Ambulatory ld1 15:05 Acuity: SARAHI 4 ld1 Triage Assessment: 15:07 General: Appears in no apparent distress. comfortable, Behavior is calm, cooperative, ld1 appropriate for age. Pain: Complains of pain in scalp, back and anterior aspect of right shoulder Pain does not radiate. Pain currently is 9 out of 10 on a pain scale. Quality of pain is described as throbbing, Pain began 1 day ago. Is continuous. EENT: No signs and/or symptoms were reported regarding the EENT system. Neuro: Level of Consciousness is awake, alert, obeys commands, Oriented to person, place, time, situation. Cardiovascular: Capillary refill < 3 seconds Patient's skin is warm and dry. Respiratory: Airway is patent Respiratory effort is even, unlabored. GI: Abdomen is round non-distended. : No signs and/or symptoms were reported regarding the genitourinary system. Derm: No signs and/or symptoms reported regarding the dermatologic system. Musculoskeletal: No signs and/or symptoms reported regarding the musculoskeletal system. Historical: - Allergies: 15:07 Blueberry; ld1 15:07 Darvocet-N 100; ld1 15:07 Ibuprofen; ld1 15:07 INSULINS; ld1 15:07 Morphine; ld1 15:07 Vicodin; ld1 - PMHx: 15:07 Chronic obstructive lung disease; cirrhosis of liver; diabetes mellitus; cathie-danlos ld1 syndrome; Hypertensive disorder; kidney disease; - PSHx: 15:07 Appendectomy; section; Cholecystectomy; hysterectomy; lumbar fusion; TIPS; ld1 - Immunization history:: Adult Immunizations up to date. - Infectious Disease History:: Denies. - Social history:: Smoking status: Patient denies any tobacco usage or history of. - Family history:: not pertinent. - Hospitalizations: : No recent hospitalization is reported. Screenin:47 [facility] ED Fall Risk Assessment (Adult) History of falling in the last 3 months, iw including since admission No falls in past 3 months (0 pts) Confusion or Disorientation No (0 pts) Intoxicated or Sedated No (0 pts) Impaired Gait No (0 pts) Mobility Assist Device Used No (0 pt) Altered Elimination No (0 pt) Score/Fall Risk Level 0 - 2 = Low Risk Oriented to surroundings, Maintained a safe environment. Abuse screen: Denies threats or abuse. Denies injuries from another. Nutritional screening: No deficits noted. Tuberculosis screening: No symptoms or risk factors identified. Assessment: 18:30 General: Appears in no apparent distress. Behavior is calm, cooperative. Pain: iw Complains of pain in right arm and back and scalp and anterior aspect of right shoulder. Neuro: Level of Consciousness is awake, alert, obeys commands, Oriented to person, place, time, situation, Moves all extremities. Cardiovascular: Patient's skin is warm and dry. Respiratory: Respiratory effort is even, unlabored, Respiratory pattern is regular, symmetrical. Derm: Skin is intact, is fragile. Musculoskeletal: Range of motion: intact in all extremities. Vital Signs: 15:05 BP 151 / 73; Pulse 69; Resp 18; Temp 97.2(TE); Pulse Ox 100% on R/A; Weight 105.69 kg; ld1 Height 5 ft. 4 in. ; Pain 9/10; 15:05 Body Mass Index 39.99 (105.69 kg, 162.56 cm) ld1 15:05 Pain Scale: Adult ld1 ED Course: 14:45 Patient arrived in ED. mr 14:47 Arnaldo Blake MD is Attending Physician. rn 15:06 Triage completed. ld1 15:07 Arm band placed on right wrist. ld1 15:27 CT Head C Spine In Process Unspecified. EDMS 15:27 CT Chest Wo Con In Process Unspecified. EDMS 15:40 XRAY Shoulder RIGHT 2 view In Process Unspecified. EDMS 15:40 XRAY Pelvis In Process Unspecified. EDMS 18:30 Patient has correct armband on for positive identification. Provided Education on: . iw 18:46 Haleigh Rubalcava, RN is Primary Nurse. iw 18:47 No provider procedures requiring assistance completed. Patient did not have IV access iw during this emergency room visit. Administered Medications: No medications were administered Medication: 18:30 VIS not applicable for this client. iw Outcome: 18:28 Discharge ordered by . rn 18:47 Discharged to home via wheelchair, with family, iw 18:47 Condition: good 18:47 Discharge instructions given to patient, Instructed on discharge instructions, follow up and referral plans. Demonstrated understanding of instructions, follow-up care, 18:48 Patient left the ED. iw Signatures: Dispatcher [employer] EDMI BrowningPeyton, Reg Reg mr Haleigh Rubalcava, RN RN iw Arnaldo Blake MD MD rn Sims, Lauren, RN RN ld1
[2024-08-16 20:04] VITALS: BP 151/73; TEMP 97.2; O2SAT 100
== END 2024-08-15 18:48 | disposition home or self-care (01) ==
LOC: ER 14:43
DX: S13.8XXA Sprain of joints and ligaments of other parts of neck, initial encounter (principal); S40.011A Contusion of right shoulder, initial encounter; W18.30XA Fall on same level, unspecified, initial encounter
CPT/HCPCS: 70450; 71250; 72125; 72170; 99282

== ENCOUNTER 2024-09-08 19:48 | Emergency (ER) | payer OTHER ==
[2024-09-08 20:49] LABS: Absolute Eosinophils 0.2 K/uL (0-0.5); Absolute Lymphocytes (CBC) 1.2 K/uL (0.7-4.9); Absolute Monocytes 0.5 K/uL (0.1-1.3); Absolute Neutrophil 4.6 K/uL (1.8-8.0); Basophils % 0.5 % (0-1.3); Hematocrit 32.8 % (36.0-45.0); Hemoglobin 11.5 g/dL (12.0-15.0); Lymphocytes % 17.8 % (15.3-44.8); MCH 31.2 pg (27.0-35.0); MCHC 35.2 g/dL (32.0-36.0); MCV 88.7 fL (80-100); MPV 8.2 fL (7.6-11.3); Monocytes % 7.6 % (3.3-12.3); Neutrophils % 71.1 % (41.7-73.7); Platelets 121 thou/uL (152-406); Protime INR 1.24; RBC Red Blood Cell Count 3.69 M/uL (3.86-4.86); Red Cell Distribution Width 15.9 % (12.1-15.2)
--- NOTE | 2024-09-08 21:03 | RAD REPORT ---
EXAMINATION: CT ABDOMEN AND PELVIS WITHOUT CONTRAST CLINICAL INDICATION: back pain, urinary frequency TECHNIQUE: CT abdomen and pelvis was performed, without IV contrast, as per department protocol. Axia l, sagittal and coronal reconstructions were obtained. One or more of the following dose reduction techniques were used: Automated exposure control, adjustment of the mA and kV according to the patien t size, and iterative reconstruction. Unless otherwise specified, incidental findings do not require dedicated imaging follow-up. COMPARISON: 05/04/2023 FINDINGS: The lack of intravenous contrast limits the sensitivity of this exam for evaluation of solid visceral organs, vascular structures, and retroperitoneum. LOWER CHEST: The visualized lung bases are clear. Small hiatal hernia. Postsurgical changes are prese nt about the lesser curvature the stomach. . LIVER:Normal in size and contour. No focal lesion. TIPS shunt is in place . Clips. SPLEEN: Normal size. No focal lesion. PANCREAS: No mass, ductal dilation, or rebekah-pancreatic fluid. ADRENALS: Normal; no mass. KIDNEYS AND URETERS: Normal size and contour. No hydronephrosis. URINARY BLADDER: Normal contour. GASTROINTESTINAL TRACT: No evidence of bowel obstruction, significant free fluid, free air or abscess . APPENDIX: Appendix not visualized, but no inflammatory changes in region of appendix. LYMPH NODES: No lymphadenopathy. MUSCULOSKELETAL: Vertebroplasty cement is seen at T12 and L1 with significant compression fracture se en. Postsurgical hardware is present at L5-S1 with anterolisthesis noted. Superior compression fracture affects L4 new since 2023. ADDITIONAL FINDINGS: Aortoiliac atherosclerosis. IMPRESSION: No acute abnormalities in the abdomen or pelvis, with evaluation limited by lack of IV contrast. Superior endplate compression fracture of L4, [id number], new since 2023.
[2024-09-08 21:08] LABS: Albumin 2.4 g/dL (3.4-5.0); Albumin/Globulin Ratio 0.5 (1.1-1.8); Anion Gap 8.1 mEq/L (5.0-15.0); Bilirubin Direct 0.3 mg/dL (0-0.2); Bilirubin Total 1.3 mg/dL (0.2-1.0); Globulin 4.7 g/dL (2.3-3.5); Protein, Total 7.1 g/dL (6.4-8.2); Troponin High Sensitivity 12.4 pg/mL (<58.9)
[2024-09-08 21:10] LABS: Magnesium 1.8 mg/dL (1.6-2.4); Potassium 4.1 mEq/L (3.5-5.1); Thyroid Stimulating Hormone 4.16 uIU/mL (0.358-3.740)
[2024-09-08 21:52] LABS: Specific Gravity 1.008 (1.005-1.030); Urine Bilirubin NEGATIVE (Negative); Urine Blood Negative (Negative); Urine Clarity Clear (Clear); Urine Color Light-Yellow (Yellow); Urine Glucose TRACE (Negative); Urine Ketones NEGATIVE (Negative); Urine Microscopic Reflex YN NO UMIC; Urine Nitrite NEGATIVE (Negative); Urine Protein NEGATIVE (Negative); Urine Urobilinogen Normal (Normal)
--- NOTE | 2024-09-08 22:07 | RAD REPORT ---
EXAMINATION: ONE VIEW CHEST XR CLINICAL INDICATION: DYSPNEA TECHNIQUE: Frontal chest projection is submitted. Examination is limited by patient positioning and t echnique. COMPARISON: 06/18/2024 FINDINGS: Mild interstitial pulmonary edema. The heart is upper limit of normal in size. No displaced fractures identified. IMPRESSION: Mild CHF.
--- NOTE | 2024-09-08 22:37 | EDPHYS ---
Physician Documentation [facility] Name: Geronimo Davis Age: 68 yrs Sex: Female : 1955 Arrival Date: 09/08/2024 Time: 19:48 Bed IW9 Private MD: ED Physician Leonard Mclaughlin HPI: 09/08 20:55 This 68 yrs old Female presents to ER via Ambulatory with complaints of Doesn't Feel rt Right. 20:55 Patient presents to the ED with a bilateral low back pain, worse on the right for the rt past 3 days, states that she has not felt well since then. The daughter states that she has been somewhat short of breath, generally weak. Denies other acute complaints at this time, symptoms are moderate in severity, no other aggravating or alleviating factors.. Historical: - Allergies: 20:02 Blueberry; jb4 20:02 Darvocet-N 100; jb4 20:02 Ibuprofen; jb4 20:02 INSULINS; jb4 20:02 Morphine; jb4 20:02 Vicodin; jb4 - PMHx: 20:02 Chronic obstructive lung disease; cirrhosis of liver; diabetes mellitus; cathie-danlos jb4 syndrome; Hypertensive disorder; kidney disease; - PSHx: 20:02 Appendectomy; section; Cholecystectomy; hysterectomy; lumbar fusion; TIPS; jb4 - Immunization history:: Adult Immunizations up to date. - Infectious Disease History:: Denies. - Social history:: Smoking status: Patient/guardian denies using tobacco, the patient reports quitting approximately 1 years ago. - Family history:: not pertinent. ROS: 20:55 Constitutional: Negative for fever, chills, and weight loss, Cardiovascular: Negative rt for chest pain, palpitations, and edema, Respiratory: Negative for shortness of breath, cough, wheezing, and pleuritic chest pain, Abdomen/GI: Negative for abdominal pain, nausea, vomiting, diarrhea, and constipation, MS/Extremity: Negative for injury and deformity, Skin: Negative for injury, rash, and discoloration, 20:55 Back: Positive for pain at rest, Negative for injury or acute deformity, 20:55 Neuro: Positive for weakness, Negative for loss of consciousness, Exam: 20:55 Constitutional: This is a well developed, well nourished patient who is awake, alert, rt and in no acute distress. Head/Face: Normocephalic, atraumatic. Chest/axilla: Normal chest wall appearance and motion. Nontender with no deformity. No lesions are appreciated. Cardiovascular: Regular rate and rhythm with a normal S1 and S2. No gallops, murmurs, or rubs. Normal PMI, no JVD. No pulse deficits. Respiratory: Lungs have equal breath sounds bilaterally, clear to auscultation and percussion. No rales, rhonchi or wheezes noted. No increased work of breathing, no retractions or nasal flaring. Abdomen/GI: Soft, non-tender, with normal bowel sounds. No distension or tympany. No guarding or rebound. No evidence of tenderness throughout. Skin: Warm, dry with normal turgor. Normal color with no rashes, no lesions, and no evidence of cellulitis. MS/ Extremity: Pulses equal, no cyanosis. Neurovascular intact. Full, normal range of motion. Neuro: Awake and alert, GCS 15, oriented to person, place, time, and situation. Cranial nerves II-XII grossly intact. Motor strength 5/5 in all extremities. Sensory grossly intact. Cerebellar exam normal. Normal gait. 20:55 ECG was reviewed by the Attending Physician. Vital Signs: 19:59 BP 154 / 73; Pulse 43; Resp 16; Temp 97.6; Pulse Ox 97% on R/A; Weight 105.23 kg (R); jb4 Height 5 ft. 4 in. ; 21:00 BP 144 / 83; Pulse 83; Resp 17; Pulse Ox 97% on R/A; hm5 22:00 BP 115 / 76; Pulse 87; Resp 19; Pulse Ox 97% on R/A; hm5 22:45 BP 128 / 79; Pulse 78; Resp 19; Pulse Ox 97% on R/A; hm5 19:59 Body Mass Index 39.82 (105.23 kg, 162.56 cm) jb4 MDM: 20:21 Medical Screening Exam initiated rt 09/09 04:10 Differential Diagnosis Compression fracture, electrolyte disturbance. Data reviewed: rt vital signs, nurses notes, lab test result(s), EKG, radiologic studies. Consideration of Admission/Observation Escalation of care including admission/observation considered. Independent interpretation of the following test(s) in the Emergency Department CT Scan: My interpretation is Compression fracture seen on my interpretation of CT scan images. Care significantly affected by the following chronic conditions: Cirrhosis, diabetes. Counseling: I had a detailed discussion with the patient and/or guardian regarding the historical points, exam findings, and any diagnostic results supporting the discharge/admit diagnosis, lab results, radiology results, the need for outpatient follow up. Response to treatment: the patient's symptoms have markedly improved after treatment. 09/08 20:29 Order name: Basic Metabolic Panel; Complete Time: :57 rt 09/08 20:29 Order name: CBC with Diff; Complete Time: 21:05 rt 09/08 20:29 Order name: LFT's; Complete Time: :57 rt 09/08 20:29 Order name: Magnesium; Complete Time: :57 rt 09/08 20:29 Order name: NT PRO-BNP; Complete Time: :57 rt 09/08 20:29 Order name: PT-INR; Complete Time: 21:05 rt 09/08 20:29 Order name: Troponin HS; Complete Time: :57 rt 09/08 20:29 Order name: UA Rfx Joe Cult if indicated; Complete Time: :57 rt 09/08 20:29 Order name: TSH; Complete Time: :57 rt 09/08 20:29 Order name: AMMONIA; Complete Time: :57 rt 09/08 21:13 Order name: T4 Free; Complete Time: :57 EDMS 09/08 20:29 Order name: XRAY Chest (1 view); Complete Time: 22:08 rt 09/08 20:29 Order name: CT Abd/Pelvis - Without Contrast; Complete Time: 21:05 rt 09/08 20:29 Order name: Cardiac monitoring; Complete Time: :54 rt 09/08 20:29 Order name: EKG - Nurse/Tech; Complete Time: 20:45 rt 09/08 20:29 Order name: IV Saline Lock; Complete Time: 21:54 rt 09/08 20:29 Order name: Labs collected and sent; Complete Time: 21:54 rt 09/08 20:29 Order name: O2 Per Protocol; Complete Time: 21:54 rt 09/08 20:29 Order name: O2 Sat Monitoring; Complete Time: 21:54 rt EC/22 20:55 Rate is 88 beats/min. Rhythm is regular, Normal Sinus Rhythm with Unifocal PVCs. QRS rt [place] is Normal. [place] interval is normal. QRS interval is normal. QT interval is normal. No Q waves. Administered Medications: 20:29 CANCELLED (in error): ammonia aromatic1 inhalations Inhalation once rt Disposition Summary: 09/08/24 22:35 Discharge Ordered Notes: Location: Home rt Problem: new rt Symptoms: have improved rt Condition: Stable rt Diagnosis - Compression fracture of L4 rt Followup: rt - With: Private Physician - When: 2 - 3 days - Reason: Discharge Instructions: - Discharge Summary Sheet rt - Spinal Compression Fracture rt Forms: - Medication Reconciliation Form rt - Antibiotic Education rt - Prescription Opioid Use rt - Patient Portal Instructions rt - Leadership Thank You Letter rt Prescriptions: - Lidoderm 5 % Topical adhesive patch, medicated - apply 1 package TOPICAL route per package directions leave on most painful area rt for up to 12 hrs; 10 patch; Refills: 0, Product Selection Permitted Signatures: Dispatcher [employer] Dagoberto Galloway RN RN jb4 Leonard Mclaughlin MD MD rt Corrections: (The following items were deleted from the chart) 20:29 20:29 Ammonia Aromatic Inhalation 1 inhalations Inhalation once ordered. rt rt 20:29 20:29 BASIC METABOLIC PANEL+C.LAB.BRZ ordered. EDMS EDMS 20:29 20:29 CBC+H.LAB.BRZ ordered. EDMS EDMS 20:29 20:29 HEPATIC FUNCTION+C.LAB.BRZ ordered. EDMS EDMS 20:29 20:29 MAGNESIUM+C.LAB.BRZ ordered. EDMS EDMS 20:29 20:29 PROBNP+C.LAB.BRZ ordered. EDMS EDMS 20:29 20:29 PROTIME (+INR)+COAG.LAB.BRZ ordered. EDMS EDMS 20:29 20:29 Troponin High Sensitivity+C.LAB.BRZ ordered. EDMS EDMS 20:29 20:29 UA Rfx Joe Cult if indicated+U.LAB.BRZ ordered. EDMS EDMS 20:29 20:29 THYROID STIMULAT HORMONE+C.LAB.BRZ ordered. EDMS EDMS 20:29 20:29 Chest Single View+RAD.RAD.BRZ ordered. EDMS EDMS 20:29 20:29 Abdomen Pelvis Wo Con+CT.RAD.BRZ ordered. EDMS EDMS
--- NOTE | 2024-09-08 22:37 | ER ---
Nurse's Notes [facility] Name: Geronimo Davis Age: 68 yrs Sex: Female : 1955 Arrival Date: 09/08/2024 Time: 19:48 Bed IW9 Private MD: Diagnosis: Compression fracture of L4 Presentation: 09/08 19:59 Chief complaint: Patient states: My lower back on both sides hurt and I just don't feel jb4 right and haven't for the past 3-4 days. Pt noted to be wheezing, appears very weak. Coronavirus screen: At this time, the client does not indicate any symptoms associated with coronavirus-19. Ebola Screen: No symptoms or risks identified at this time. Initial Sepsis Screen: Does the patient meet any 2 criteria? No. Patient's initial sepsis screen is negative. Does the patient have a suspected source of infection? No. Patient's initial sepsis screen is negative. Risk Assessment: Do you want to hurt yourself or someone else? Patient reports no desire to harm self or others. Onset of symptoms was September 08, 2024. Transition of care: patient was not received from another setting of care. 19:59 Method Of Arrival: Ambulatory jb4 19:59 Acuity: SARAHI 3 jb4 Triage Assessment: 20:02 General: Appears in no apparent distress. uncomfortable, ill, obese, Behavior is calm, jb4 cooperative. Pain: Complains of pain in low back area Pain does not radiate. Pain currently is 9 out of 10 on a pain scale. Quality of pain is described as stabbing, throbbing. Neuro: Level of Consciousness is awake, alert, obeys commands, Oriented to person, place, time, situation. Cardiovascular: Patient's skin is warm and dry. Respiratory: Airway is patent Respiratory effort is even, unlabored, Respiratory pattern is regular, symmetrical. Derm: Skin is intact, Skin is pink, warm \T\ dry. Musculoskeletal: Circulation, motion, and sensation intact. Range of motion: intact in all extremities. Historical: - Allergies: 20:02 Blueberry; jb4 20:02 Darvocet-N 100; jb4 20:02 Ibuprofen; jb4 20:02 INSULINS; jb4 20:02 Morphine; jb4 20:02 Vicodin; jb4 - PMHx: 20:02 Chronic obstructive lung disease; cirrhosis of liver; diabetes mellitus; cathie-danlos jb4 syndrome; Hypertensive disorder; kidney disease; - PSHx: 20:02 Appendectomy; section; Cholecystectomy; hysterectomy; lumbar fusion; TIPS; jb4 - Immunization history:: Adult Immunizations up to date. - Infectious Disease History:: Denies. - Social history:: Smoking status: Patient/guardian denies using tobacco, the patient reports quitting approximately 1 years ago. - Family history:: not pertinent. Screenin:04 [facility] ED Fall Risk Assessment (Adult) History of falling in the last 3 months, jb4 including since admission No falls in past 3 months (0 pts) Confusion or Disorientation No (0 pts) Intoxicated or Sedated No (0 pts) Impaired Gait No (0 pts) Mobility Assist Device Used No (0 pt) Altered Elimination No (0 pt) Score/Fall Risk Level 0 - 2 = Low Risk Oriented to surroundings, Maintained a safe environment. Abuse screen: Denies threats or abuse. Nutritional screening: No deficits noted. Tuberculosis screening: No symptoms or risk factors identified. Vital Signs: 19:59 BP 154 / 73; Pulse 43; Resp 16; Temp 97.6; Pulse Ox 97% on R/A; Weight 105.23 kg (R); jb4 Height 5 ft. 4 in. ; 21:00 BP 144 / 83; Pulse 83; Resp 17; Pulse Ox 97% on R/A; 5 22:00 BP 115 / 76; Pulse 87; Resp 19; Pulse Ox 97% on R/A; 5 22:45 BP 128 / 79; Pulse 78; Resp 19; Pulse Ox 97% on R/A; 5 19:59 Body Mass Index 39.82 (105.23 kg, 162.56 cm) jb4 ED Course: 19:52 Patient arrived in ED. mr 20:02 Triage completed. jb4 20:02 Leonard Mclaughlin MD is Attending Physician. rt 20:02 Arm band placed on right wrist. jb4 20:04 Patient has correct armband on for positive identification. Bed in low position. Call [facility] light in reach. Side rails up X 1. Provided Education on: plan of care. 20:13 Yamel House, RN is Primary Nurse. 5 20:25 EKG done, by ED staff, reviewed by Leonard Mclaughlin MD. lp2 20:30 Inserted saline lock: 20 gauge in right hand, using aseptic technique. Blood collected. hm5 Flushed with 10 mL NS. 20:54 CT Abd/Pelvis - Without Contrast In Process Unspecified. EDMS 22:02 XRAY Chest (1 view) In Process Unspecified. EDMS 23:02 No provider procedures requiring assistance completed. IV discontinued, intact, hm5 bleeding controlled, No redness/swelling at site. Pressure dressing applied. Administered Medications: 20:29 CANCELLED (in error): ammonia aromatic1 inhalations Inhalation once rt Medication: 20:04 VIS not applicable for this client. jb4 Outcome: 22:35 Discharge ordered by MD. rt 23:03 Discharged to home ambulatory, hm5 23:03 Condition: stable 23:03 Discharge instructions given to patient, family, Instructed on discharge instructions, follow up and referral plans. medication usage, Demonstrated understanding of instructions, medications, Prescriptions given X 1, 23:04 Patient left the ED. 5 Signatures: Dispatcher [employer] EDWI BrowningPeyton vasquez, Reg Reg mr Dagoberto Ruiz, RN RN jb4 Leonard Mclaughlin MD MD rt Anu Sanchez lp2 Yamel House, NADJA RN hm5 Corrections: (The following items were deleted from the chart) 20:14 19:59 Chief complaint: Patient states: My lower back on both sides hurt and I just jb4 don't feel right and haven't for the past 3-4 days. jb4
[2024-09-08 23:19] VITALS: TEMP 97.6; O2SAT 97
[2024-09-08 23:31] VITALS: BP 128/79
--- NOTE | 2024-09-13 12:34 | EKG ---
Test Date: 2024-09-08 Test Time: 20:22:31 Direct Care Staffer: DEVAN MEASUREMENT RESULTS: Intervals: Rate: 88 [place]: 154 QRSD: 74 QT: 360 QTc: 435 [place]: P: 20 [place]: 154 QRS: 11 T: 66 INTERPRETIVE STATEMENTS: Sinus rhythm with frequent and consecutive premature ventricular complexes Nonspecific ST abnormality Abnormal ECG Compared to ECG 05/04/2023 02:47:02 Ventricular premature complex(es) now present ST (T wave) deviation now present Electronically Signed On 09-13-24 12:25:26 CDT by Julio Mahajan
== END 2024-09-08 23:04 | disposition home or self-care (01) ==
LOC: ER 19:48
DX: M48.56XA Collapsed vertebra, not elsewhere classified, lumbar region, initial encounter for fracture (principal); R06.02 Shortness of breath; R53.1 Weakness
CPT/HCPCS: 36415; 71045; 74176; 80048; 80076; 81003; 82140; 83735; 83880; 84439; 84443; 84484; 85025; 85610; 93005; 99284

== ENCOUNTER 2025-01-30 09:12 | Inpatient (IN) | payer OTHER ==
[2025-01-30] MEDS ORDERED: ALBUTEROL 2.5 MG/3 ML NEB SOL ONE (09:59)
[2025-01-30] MEDS ORDERED: METHYLPREDNISOLONE 125 MG INJ ONE (09:59)
[2025-01-30] MEDS ORDERED: IPRATROPIUM BROM 0.5MG/2.5ML ONE (09:59)
[2025-01-30] MEDS ORDERED: MAGNESIUM SULFATE 1 gm IVPB 1 GM/100 ML BAG IV ONE (09:59)
[2025-01-30 10:30] LABS: Absolute Lymphocytes (CBC) 1.1 K/uL (0.7-4.9); Hematocrit 30.6 % (36.0-45.0); Hemoglobin 10.8 g/dL (12.0-15.0); MCH 30.9 pg (27.0-35.0); MCHC 35.5 g/dL (32.0-36.0); MCV 87.1 fL (80-100); MPV 6.8 fL (7.6-11.3); Nucleated RBC Absolute Count 0.0 (0-0); Nucleated Red Blood Cells % 0.0 % (0-0); RBC Red Blood Cell Count 3.51 M/uL (3.86-4.86); White Blood Count 14.40 thou/uL (4.3-10.9)
[2025-01-30 10:39] LABS: PT Prothrombin Time 13.8 SECONDS (10-13.0); PTT, Activated Partial Thromb 26.8 SECONDS (27.2-37.4); Protime INR 1.23
[2025-01-30 11:10] LABS: ALT/SGPT 76.0 U/L (13-56); AST/SGOT 118.0 U/L (15-37); Albumin 2.4 g/dL (3.4-5.0); Albumin/Globulin Ratio 0.6 (1.1-1.8); Alkaline Phosphatase 173.0 U/L (45-117); Anion Gap 9.7 mEq/L (5.0-15.0); BUN Blood Urea Nitrogen 16.0 mg/dL (7-18); Globulin 4.0 g/dL (2.3-3.5); Glucose Level 77.0 mg/dL (74-106); NT PRO-BNP 796.0 pg/mL (<125); Potassium 3.7 mEq/L (3.5-5.1); Troponin High Sensitivity 27.8 pg/mL (<58.9)
--- NOTE | 2025-01-30 11:21 | RAD REPORT ---
EXAMINATION: ONE VIEW CHEST XR CLINICAL INDICATION: Female, 69 years old.,Cough;Dyspnea TECHNIQUE: Frontal chest projection is submitted. Examination is limited by patient positioning and t echnique. COMPARISON: 09/30/2024 FINDINGS: The lungs are well inflated and clear. No pneumothorax or sizable effusion. The heart is normal in s ize. Mediastinal contours are unremarkable. IMPRESSION: No acute intrathoracic abnormalities.
--- NOTE | 2025-01-30 11:45 | EDPHYS ---
Physician Documentation [facility] Name: Geronimo Davis Age: 69 yrs Sex: Female : 1955 Arrival Date: 01/30/2025 Time: 09:12 Bed 3 Private MD: ED Physician Arnaldo Blake HPI: 01/30 11:03 This 69 yrs old Female presents to ER via EMS with complaints of Shortness Of Breath. kb 11:03 Pt is a 69 year old female who presents for shortness of breath that started one week kb ago. residential staff called EMS today for low oxygen levels. EMS reports O2 sat of 94% on room air upon their arrival. Pt given duo neb in route to ER. . Historical: - Allergies: 09:30 Blueberry; ar8 09:30 Darvocet-N 100; ar8 09:30 Ibuprofen; ar8 09:30 INSULINS; ar8 09:30 Morphine; ar8 09:30 Vicodin; ar8 09:30 Acetaminophen; ar8 09:30 Aspirin; ar8 09:30 BACLOFEN; ar8 09:30 Codeine; ar8 09:30 Dexamethasone; ar8 09:30 fluticasone; ar8 09:30 Hydrocortone; ar8 09:30 INFLUENZA VIRUS VACCINES; ar8 - PMHx: 09:30 Chronic obstructive lung disease; cirrhosis of liver; diabetes mellitus; cathie-danlos ar8 syndrome; Hypertensive disorder; Hypertensive disorder; kidney disease; - PSHx: 09:30 Appendectomy; section; Cholecystectomy; hysterectomy; lumbar fusion; TIPS; ar8 - Immunization history:: Adult Immunizations not up to date. - Infectious Disease History:: Denies. - Social history:: Smoking status: Patient/guardian denies using tobacco, the patient reports quitting approximately 1 years ago. ROS: 10:35 Constitutional: As per HPI kb Exam: 10:35 Constitutional: This is a well developed, well nourished patient who is awake, alert, kb and in no acute distress. Head/Face: Normocephalic, atraumatic. ENT: Moist Mucous membranes Cardiovascular: Regular rate Skin: Warm, dry with normal turgor. Normal color. MS/ Extremity: Pulses equal, no cyanosis. Neurovascular intact. Full, normal range of motion. Neuro: Awake and alert, GCS 15, oriented to person, place, time, and situation. 10:35 Respiratory: mild respiratory distress is noted, Respirations: labored breathing, that is mild, Breath sounds: wheezing: expiratory that is moderate, is heard diffusely, Vital Signs: 09:12 BP 138 / 87; Pulse 74; Resp 24; Temp 97.9(O); Pulse Ox 100% on 2 lpm NC; Weight 104.33 ar8 kg; Height 5 ft. 4 in. ; Pain 9/10; 10:00 BP 136 / 67; Pulse 69; Resp 16; Pulse Ox 100% on Nebulizer Mask; db 11:00 BP 136 / 77; Pulse 68; Resp 19; Pulse Ox 99% on 1 lpm NC; ar8 12:00 BP 147 / 90; Pulse 71; Resp 20; Pulse Ox 98% on 1 lpm NC; ar8 12:30 BP 171 / 76; Pulse 67; Resp 24; Pulse Ox 99% on 2 lpm NC; ar8 13:45 BP 159 / 72; Pulse 68; Resp 22; Pulse Ox 99% on 1 lpm NC; ar8 14:15 BP 129 / 54; Pulse 68; Resp 22; Pulse Ox 100% on 1 lpm NC; ar8 15:00 BP 151 / 67; Pulse 68; Resp 20; Pulse Ox 100% ; db 15:30 BP 141 / 66; Pulse 66; Resp 24; Pulse Ox 100% on R/A; Pain 0/10; ar8 09:12 Body Mass Index 39.48 (104.33 kg, 162.56 cm) ar8 09:12 Pain Scale: Adult ar8 15:30 Pain Scale: Adult ar8 MDM: 09:24 Medical Screening Exam initiated kb 11:44 Data reviewed: vital signs, nurses notes. kb 11:46 Differential diagnosis: Bronchitis Chronic Obstructive Pulmonary Disease pneumonia, kb pulmonary edema. Consideration of Admission/Observation Patient was admitted/placed on observation. Escalation of care including admission/observation considered. Management of patient was discussed with the following: Hospitalist: Hospitalist team, patient excepted for admission under Dr. Andres. Historians other than the Patient: Historians other than the Patient: EMS: [facility]. Counseling: I had a detailed discussion with the patient and/or guardian regarding the historical points, exam findings, and any diagnostic results supporting the discharge/admit diagnosis, lab results, radiology results, the need for further work-up and treatment in the hospital. 01/30 09:29 Order name: BNP; Complete Time: 11:12 kb 01/30 09:29 Order name: Blood Culture Adult (2) kb 01/30 09:29 Order name: CBC with Diff; Complete Time: 10:35 kb 01/30 09:29 Order name: CMP; Complete Time: 11:12 kb 01/30 09:29 Order name: Lactate w/ 2H reflex if indic.; Complete Time: 11:02 kb 01/30 09:29 Order name: Protime (+inr); Complete Time: 10:45 kb 01/30 09:29 Order name: Ptt, Activated; Complete Time: 10:45 kb 01/30 09:29 Order name: Troponin HS; Complete Time: 11:12 kb 01/30 14:09 Order name: Basic Metabolic Panel EDMS 01/30 14:09 Order name: Basic Metabolic Panel EDMS 01/30 14:09 Order name: Basic Metabolic Panel EDMS 01/30 14:09 Order name: Basic Metabolic Panel EDMS 01/30 14:09 Order name: CBC with Automated Diff EDMS 01/30 14:09 Order name: CBC with Automated Diff EDMS 01/30 14:09 Order name: CBC with Automated Diff EDMS 01/30 14:09 Order name: CBC with Automated Diff EDMS 01/30 14:09 Order name: Magnesium EDMS 01/30 14:09 Order name: Magnesium EDMS 01/30 14:09 Order name: Phosphorus EDMS 01/30 14:09 Order name: Phosphorus EDMS 01/30 14:10 Order name: Sputum Culture EDMS 01/30 09:25 Order name: Chest Single View XRAY; Complete Time: 11:25 kb 01/30 14:10 Order name: Chest Pa And Lat (2 Views) EDMS 01/30 14:10 Order name: Chest Pa And Lat (2 Views) EDMS 01/30 14:10 Order name: Chest Pa And Lat (2 Views) EDMS 01/30 14:10 Order name: Chest Pa And Lat (2 Views) EDMS 01/30 09:25 Order name: EKG; Complete Time: 09:25 kb 01/30 14:04 Order name: CONS Physician Consult EDMS 01/30 14:09 Order name: CONS [facility] Cons EDMS 01/30 14:09 Order name: Physical Therapy Consult EDNE 01/30 14:10 Order name: Patient Safety Orders [facility] 01/30 09:25 Order name: EKG - Nurse/Tech; Complete Time: 10:17 kb 01/30 09:29 Order name: Accucheck; Complete Time: 10:16 kb 01/30 09:29 Order name: Cardiac monitoring; Complete Time: 09:38 kb 01/30 09:29 Order name: IV Saline Lock - Large Bore; Complete Time: 09:38 kb 01/30 09:29 Order name: Labs collected and sent; Complete Time: 10:13 kb 01/30 09:29 Order name: O2 Per Protocol; Complete Time: 10:13 kb 01/30 09:29 Order name: O2 Sat Monitoring; Complete Time: 10:13 kb 01/30 09:29 Order name: Vital Signs; Complete Time: 10:13 kb EC:35 Rate is 68 beats/min. Rhythm is regular. QRS Hayden is Normal. VT interval is normal at kb 160 msec. QRS interval is normal at 96 msec. QT interval is normal at 448 msec. Administered Medications: 10:00 Drug: MethylPrednisoLONE IVP 125 mg IVP once Route: IVP; Site: left forearm; db 11:00 Follow up: Response: No adverse reaction ar8 10:00 Drug: Albuterol Inhalation 2.5 mg Inhalation once Route: Inhalation; db 10:30 Follow up: Response: No adverse reaction; Marked relief of symptoms ar8 10:00 Drug: Ipratropium Inhalation Aerosol 0.5 mg Inhalation once Route: Inhalation; db 10:30 Follow up: Response: No adverse reaction; Marked relief of symptoms ar8 10:10 Drug: Magnesium Sulfate IVPB 1 grams IVPB once over 1 hrs Route: IVPB; Infused Over: 1 db hrs; Site: left forearm; 11:02 Follow up: Response: No adverse reaction; IV Status: Completed infusion ar8 Disposition: 17:51 Co-signature as Attending Physician, Arnaldo Blake MD I reviewed the patient's care rn provided by the Advanced Practice Provider and agree with the diagnosis and treatment plan. Disposition Summary: 01/30/25 11:45 Hospitalization Ordered Notes: Hospitalization Status: Observation kb Location: Telemetry/MedSurg (observation) kb Condition: Stable kb Problem: new kb Symptoms: are unchanged kb Bed/Room Type: Standard kb Provider: Matt Andres(01/30/25 12:01) elodia Room Assignment: 216(01/30/25 14:17) bd Diagnosis - COPD/ Chronic obstructive pulmonary disease with (acute) exacerbation kb - Hyponatremia kb Forms: - Medication Reconciliation Form kb - SBAR form kb - Leadership Thank You Letter kb Signatures: Dispatcher [employer] EDKristy Norris, PROFESSIONAL ATHLETE-C PROFESSIONAL ATHLETE-Ckb Edilia Rosario Roman, MD MD rn Benton, Danielle RN RN Tamir Bolivar RN RN ar8 Corrections: (The following items were deleted from the chart) 11:47 11:46 Historians other than the Patient: elodia 12:01 11:46 Management of patient was discussed with the following: Hospitalist: Hospitalist elodia team, patient excepted for admission under Dr. Blake. kb 12:01 11:45 Mike Blake 14:17 11:45 elodia claros
--- NOTE | 2025-01-30 11:45 | ER ---
Nurse's Notes [facility] Name: Geronimo Davis Age: 69 yrs Sex: Female : 1955 Arrival Date: 01/30/2025 Time: 09:12 Bed 3 Private MD: Diagnosis: COPD/ Chronic obstructive pulmonary disease with (acute) exacerbation;Hyponatremia Presentation: 01/30 09:12 Chief complaint: Patient states: C/O SOB and wheezing x1 week. HX of COPD. ar8 09:12 Coronavirus screen: At this time, the client does not indicate any symptoms associated ar8 with coronavirus-19. Ebola Screen: No symptoms or risks identified at this time. Initial Sepsis Screen: Does the patient meet any 2 criteria? RR > 20 per min. No. Patient's initial sepsis screen is negative. Does the patient have a suspected source of infection? No. Patient's initial sepsis screen is negative. Risk Assessment: Do you want to hurt yourself or someone else? Patient reports no desire to harm self or others. Onset of symptoms was January 23, 2025. 09:12 Method Of Arrival: EMS: [facility] ar8 09:12 Acuity: SARAHI 3 ar8 Triage Assessment: 09:30 General: Appears uncomfortable, Behavior is cooperative. Pain: Complains of pain in low ar8 back area Pain currently is 9 out of 10 on a pain scale. Quality of pain is described as aching, Pain began chronic low back pain. Neuro: Level of Consciousness is awake, alert, obeys commands, Oriented to person, place, time, situation. Cardiovascular: Patient's skin is warm and dry. Respiratory: Reports shortness of breath at rest since 1 week Airway is patent Respiratory effort is labored, Respiratory pattern is tachypnea Onset: The symptoms/episode began/occurred 1 week, the patient has moderate shortness of breath. GI: No signs and/or symptoms were reported involving the gastrointestinal system. : No signs and/or symptoms were reported regarding the genitourinary system. Derm: No signs and/or symptoms reported regarding the dermatologic system. Musculoskeletal: No signs and/or symptoms reported regarding the musculoskeletal system. Historical: - Allergies: 09:30 Blueberry; ar8 09:30 Darvocet-N 100; ar8 09:30 Ibuprofen; ar8 09:30 INSULINS; ar8 09:30 Morphine; ar8 09:30 Vicodin; ar8 09:30 Acetaminophen; ar8 09:30 Aspirin; ar8 09:30 BACLOFEN; ar8 09:30 Codeine; ar8 09:30 Dexamethasone; ar8 09:30 fluticasone; ar8 09:30 Hydrocortone; ar8 09:30 INFLUENZA VIRUS VACCINES; ar8 - PMHx: 09:30 Chronic obstructive lung disease; cirrhosis of liver; diabetes mellitus; cathie-danlos ar8 syndrome; Hypertensive disorder; Hypertensive disorder; kidney disease; - PSHx: 09:30 Appendectomy; section; Cholecystectomy; hysterectomy; lumbar fusion; TIPS; ar8 - Immunization history:: Adult Immunizations not up to date. - Infectious Disease History:: Denies. - Social history:: Smoking status: Patient/guardian denies using tobacco, the patient reports quitting approximately 1 years ago. Screenin:35 [facility] ED Fall Risk Assessment (Adult) History of falling in the last 3 months, ar8 including since admission No falls in past 3 months (0 pts) Confusion or Disorientation No (0 pts) Intoxicated or Sedated No (0 pts) Impaired Gait No (0 pts) Mobility Assist Device Used No (0 pt) Altered Elimination No (0 pt) Score/Fall Risk Level 0 - 2 = Low Risk Oriented to surroundings, Maintained a safe environment. Abuse screen: Denies threats or abuse. Nutritional screening: No deficits noted. Tuberculosis screening: No symptoms or risk factors identified. Assessment: 10:16 Reassessment: Patient and/or family updated on plan of care and expected duration. Pain db level reassessed. Patient is alert, oriented x 3, equal unlabored respirations, skin warm/dry/pink. General: Appears in no apparent distress. comfortable, Behavior is calm, cooperative. Neuro: Level of Consciousness is awake, alert, obeys commands, Oriented to person, place, time, situation. Cardiovascular: Rhythm is sinus rhythm. Respiratory: Airway is patent Respiratory effort is even, unlabored, Respiratory pattern is regular, symmetrical, Breath sounds are coarse bilaterally. Vital Signs: 09:12 BP 138 / 87; Pulse 74; Resp 24; Temp 97.9(O); Pulse Ox 100% on 2 lpm NC; Weight 104.33 ar8 kg; Height 5 ft. 4 in. ; Pain 9/10; 10:00 BP 136 / 67; Pulse 69; Resp 16; Pulse Ox 100% on Nebulizer Mask; db 11:00 BP 136 / 77; Pulse 68; Resp 19; Pulse Ox 99% on 1 lpm NC; ar8 12:00 BP 147 / 90; Pulse 71; Resp 20; Pulse Ox 98% on 1 lpm NC; ar8 12:30 BP 171 / 76; Pulse 67; Resp 24; Pulse Ox 99% on 2 lpm NC; ar8 13:45 BP 159 / 72; Pulse 68; Resp 22; Pulse Ox 99% on 1 lpm NC; ar8 14:15 BP 129 / 54; Pulse 68; Resp 22; Pulse Ox 100% on 1 lpm NC; ar8 15:00 BP 151 / 67; Pulse 68; Resp 20; Pulse Ox 100% ; db 15:30 BP 141 / 66; Pulse 66; Resp 24; Pulse Ox 100% on R/A; Pain 0/10; ar8 09:12 Body Mass Index 39.48 (104.33 kg, 162.56 cm) ar8 09:12 Pain Scale: Adult ar8 15:30 Pain Scale: Adult ar8 ED Course: 09:15 Bed in low position. Call light in reach. Side rails up X2. Provided Education on: plan ar8 of care. Client placed on continuous cardiac and pulse oximetry monitoring. NIBP monitoring applied. 09:15 No provider procedures requiring assistance completed. Maintain EMS IV. Dressing ar8 intact. Good blood return noted. Site clean \T\ dry. Gauge \T\ site: 20 G L FA. Flushed with 10 mL NS. 09:24 Patient arrived in ED. ar8 09:24 Kristy Us FNP-C is PHCP. kb 09:24 Arnaldo Blake MD is Attending Physician. kb 09:24 Tamir Leigh, NADJA is Primary Nurse. ar8 09:30 Triage completed. ar8 09:30 Arm band placed on right wrist. ar8 10:21 Chest Single View XRAY In Process Unspecified. EDMS 11:45 Mike Blake MD is Hospitalizing Provider. kb 12:01 Matt Andres MD is Hospitalizing Provider. kb 14:35 IV discontinued, intact, bleeding controlled, No redness/swelling at site. Pressure ar8 dressing applied, Patient's IV to L FA clotted. Unable to flush or get blood return. 14:54 Inserted saline lock: 22 gauge in left hand, using aseptic technique. Flushed with 10 ar8 mL NS. 15:38 Patient admitted, IV remains in place. ar8 Administered Medications: 10:00 Drug: MethylPrednisoLONE IVP 125 mg IVP once Route: IVP; Site: left forearm; db 11:00 Follow up: Response: No adverse reaction ar8 10:00 Drug: Albuterol Inhalation 2.5 mg Inhalation once Route: Inhalation; db 10:30 Follow up: Response: No adverse reaction; Marked relief of symptoms ar8 10:00 Drug: Ipratropium Inhalation Aerosol 0.5 mg Inhalation once Route: Inhalation; db 10:30 Follow up: Response: No adverse reaction; Marked relief of symptoms ar8 10:10 Drug: Magnesium Sulfate IVPB 1 grams IVPB once over 1 hrs Route: IVPB; Infused Over: 1 db hrs; Site: left forearm; 11:02 Follow up: Response: No adverse reaction; IV Status: Completed infusion ar8 Medication: 09:35 VIS not applicable for this client. ar8 Outcome: 11:45 Decision to Hospitalize by Provider. kb 15:38 Admitted to Med/surg accompanied by tech, via wheelchair, room 216, with chart, ar8 15:38 Condition: stable 15:38 Discharge instructions given to reason for admission. 15:39 Patient left the ED. ar8 Signatures: Dispatcher [employer] EDTX Kristy Us, ADMINISTRATIVE SUPERVISOR-C ADMINISTRATIVE SUPERVISOR-Shawna Gallardo RN RN Tamir Bolivar RN RN ar8 Corrections: (The following items were deleted from the chart) 15:38 15:02 BP 122 / 64; Pulse 83bpm; Resp 17bpm; Pulse Ox 97%; Temp 98.1F Oral; ar8 ar8
[2025-01-30] MEDS ORDERED: ACETAMINOPHEN 325 MG TABLET PO PRN (14:02)
--- NOTE | 2025-01-30 14:37 | P.HP ---
Certification for Inpatient Patient admitted to: Inpatient With expected LOS: >2 Midnights Patient will require the following post-hospital care: Penitentiary (Return to [facility]) Practitioner: I am a practitioner with admitting privileges, knowledge of paticaleb t current condition, hospital course, and medical plan of care. Services: Services provided to patient in accordance with Admission requirements found in Title 42 Section 412.3 of the Code of Federal Regulations Patient History Date of Service: 01/30/25 Primary Care Provider: Dr Scott Rangel Reason for admission: COPD exacerbation History of Present Illness: Geronimo reports experiencing shortness of breath, increased breathing rate, fatigue, and weakness. Reports feeling chills and upper back pain intermittently since symptoms began. Geronimo states that wheezing is chronically present but has worsened recently. Geronimo endorses weakness and an increased need for oxygen, which has worsened over the past week. Geronimo normally requires 2 liters of oxygen via nasal cannula only at night but has recently been requiring 2-4 liters around the clock. The daughter was on the phone and provided significant collateral data. Past Medical History: - NALD - CKD Stage III - Congestive Heart Failure, chronic diastolic congestive heart failure - Hyperlipidemia - Type 2 diabetes - GERD - Major depressive disorder - Hypokalemia - Allergic rhinitis - Atherosclerosis and coronary artery disease - Vitamin D deficiency Geronimo follows a cardiac, renal, and diabetic diet. Geronimo sees Dr. Lopez with [facility] for cardiology, Dr. Melendrez for nephrology, and Dr. Gregorio with [facility] for hepatology. Geronimo denies any allergies. Geronimo reports a smoking history with cessation one year prior. Current medications: - Tramadol 50 mg, one tablet every 12 hours for chronic pain - Lactulose 30 mL by mouth three times a day, titrated to two to three bowel movements daily for cirrhosis of the liver - Coreg 6.25 mg twice daily for congestive heart failure - Atorvastatin 20 mg, one tablet at bedtime for hyperlipidemia - Montelukast 10 mg, one tablet by mouth at bedtime for COPD - Rifaximin 550 mg twice daily for cirrhosis of the liver - Gabapentin 400 mg three times daily for chronic pain - Symbicort inhaler 160-4.5 mcg, two puffs twice daily for COPD - Women's multivitamin - Spironolactone 50 mg once daily for CHF and cirrhosis of the liver - Furosemide 40 mg twice daily by mouth for CHF and cirrhosis of the liver - Magnesium oxide 250 mg, one tablet by mouth daily - Carbamol 500 mg, one tablet every six hours for chronic pain - Tradjenta 5 mg, one tablet by mouth daily for type 2 diabetes - Pantoprazole 20 mg, one tablet by mouth daily for GERD - Sertraline 100 mg, one tablet by mouth daily for major depressive disorder - Potassium chloride extended release 10 mEq daily for hypokalemia - Loratadine 10 mg once daily for allergic rhinitis - Glipizide XL 5 mg once daily for type 2 diabetes - Amlodipine 5 mg, one tablet daily for hypertension - Aspirin 81 mg, one tablet once daily for atherosclerosis and coronary artery disease - Cholecalciferol 50 mcg, one tablet once daily for vitamin D deficiency - Plavix 75 mg, one tablet daily Allergies acetaminophen [From Vicodin] Allergy (Verified 10/01/24 02:25) Itching hydrocodone [From Vicodin] Allergy (Verified 10/01/24 02:25) Itching propoxyphene [From Darvocet-N 100] Allergy (Verified 10/01/24 02:25) Itching blueberry Allergy (Uncoded 10/01/24 02:25) Itching ibuprofen Allergy (Uncoded 10/01/24 02:25) Itching morphine Allergy (Uncoded 10/01/24 02:25) Itching Home medications list reviewed: Yes Home Medications: ARIPiprazole [Abilify*] 5 mg PO BEDTIME 10/01/24 Budesonide/Formoterol Fumarate [Budesonide-Formoterol 160-4.5] 10.2 gm IH BID* 10/01/24 Carvedilol [Coreg] 6.25 mg PO BID 10/01/24 Dulaglutide [Trulicity] 0.75 mg SQ EVERY 7TH DAY 10/01/24 Furosemide 40 mg PO DAILY 10/01/24 Gabapentin 400 mg PO TID 10/01/24 Lactulose 10 gm PO TID 10/01/24 Magnesium Oxide 250 mg PO DAILY 10/01/24 Montelukast [Singulair*] 10 mg PO BEDTIME 10/01/24 Omeprazole [Prilosec] 40 mg PO DAILY 10/01/24 Ondansetron [Zofran (Odt)*] 4 mg PO Q8HR 10/01/24 Rifaximin [Xifaxan] 550 mg PO BID* 10/01/24 Sertraline [Zoloft*] 25 mg PO DAILY 10/01/24 Spironolactone 50 mg PO DAILY 10/01/24 Tramadol HCl [Ultram] 50 mg PO BID PRN 10/01/24 Zinc Gluconate [Zinc] 50 mg PO BID 10/01/24 predniSONE [Deltasone*] 10 mg PO DAILY 7 Days #14 tab 10/02/24 - Past Medical/Surgical History Has patient received pneumonia vaccine in the past: No Diabetic: Yes -: End-stage nonalcoholic liver disease -: CKD stage III -: Chronic diastolic congestive heart failure -: HLD -: DM2 -: Gastroesophageal reflux disease -: Major depressive disorder -: Hypokalemia, chronic -: Allergic rhinitis -: Atherosclerosis with CAD -: Vitamin D deficiency -: -: lap bhavin -: appendix -: hysterectomy - Social History Smoking Status: Former smoker (Cessation 1 year ago) Smoking therapy provided: No Alcohol use: No CD- Drugs: No Caffeine use: No Place of Residence: [facility]irement ([facility]) Review of Systems 10-point ROS is otherwise unremarkable Physical Examination - Physical Exam General: Alert, Oriented x3, Cooperative, Mild distress, Obese HEENT: Atraumatic, Normocephalic, PERRLA, Mucous membr. moist/pink Neck: Supple, JVD not distended, No Thyromegaly, No LAD Respiratory: Normal air movement, Diminished, Expiratory wheezes (diffuse) Cardiovascular: No edema, Normal pulses, Regular rate/rhythm, Normal S1 S2, No gallops, No rubs, No murmurs Capillary refill: Brisk Gastrointestinal: Normal bowel sounds, Soft and benign, Non-distended, W/out splenomegaly, No tenderness, No masses, No rebound, No guarding Musculoskeletal: No clubbing, No swelling, No contractures, No erythema, No tenderness Integumentary: No rashes, No breakdown, No tenderness/swelling, No erythema, No warmth, No cyanosis Neurological: Normal tone, Sensation intact, Normal affect, Abnormal speech (weak) Lymphatics: No axilla or inguinal lymphadenopathy External genitalia: Deferred Rectal: Deferred - Studies Laboratory Data (last 24 hrs) 01/30/25 01/30/25 01/30/25 10:10 10:10 10:10 WBC 14.40 H Hgb 10.8 L Hct 30.6 L Plt Count 174 PT 13.8 H INR 1.23 APTT 26.8 L Sodium 121 L Potassium 3.7 BUN 16 Creatinine 1.17 H Glucose 77 Total Bilirubin 1.6 H AST 118 H ALT 76 H Alkaline Phosphatase 173 H Assessment and Plan - Plan Assessment: 69-year-old female with previous medical history of end-stage liver disease, CKD stage III, DM2, atherosclerosis with CAD, MDD, GERD, chronic pain, hypertension, hyperlipidemia admitted with acute exacerbation of COPD. Plan: COPD with acute exacerbation. Acute hypoxic and hypercapnic respiratory failure secondary to above. -Albuterol nebulizer mg Q 6 hours PRN Shortness of breath/Wheezing. -Ipratropium Nebulizer mg Q 6 hour PRN Shortness of breath/Wheezing. -Prednisone 40 mg P.O daily for a total of 5 days ( END date 02/02 ) -Continuous pulse oximetry -Baseline Oxygen requirements: 2L at night -Oxygen Via nasal canula to maintain O2 saturation 88-92% wean down as tolerated. -CXR personally reviewed and showed: No acute cardiopulmonary process -CTPE ordered, will follow -ECG personally reviewed and showed: Normal sinus rhythm -VBGs ordered, will follow -Influenza A, B, Covid 19 ordered, will follow -Antibiotics: Zosyn 3.375 g TID - Pulm consulted d/t failed po tx and comorbidities Wound, groin Wound care consulted and following Chronic conditions DM 2 Chronic pain COPD End-stage nonalcoholic liver disease Hyperlipidemia GERD Insomnia Hypertension MDD Allergic rhinitis Atherosclerosis CAD Resume home meds once med rec complete Dispo: - Wean O2 - [facility] once stable Discharge Plan: Retirement Plan to discharge in: 72 Hours - Advance Directives Does patient have a Living Will: No Does patient have a Durable POA for Healthcare: Yes - Code Status/Comfort Care Code Status Assessed: Yes (Full code) Critical Care: No
[2025-01-30 16:00] VITALS: BMI 39.4
[2025-01-30] MEDS ORDERED: GLUCAGON 1 MG/VIAL IM PRN (17:30)
[2025-01-30] MEDS ORDERED: D10W 125 ML IV PRN (17:30)
[2025-01-30 17:53] LABS: Influenza A Ag Negative; Influenza B Ag Negative; SARS-CoV-2 Antigen Rapid Res Negative (Negative)
[2025-01-30] MEDS: NA CHLORIDE 0.9% 1,000 ML IV SCH (17:55)
[2025-01-30] MEDS ORDERED: LABETALOL 20 MG/4ML SYRINGE IV PRN (18:16)
[2025-01-30] MEDS: INSULIN REGULAR (HUMAN) 100 UNIT/ML SQ SCH (21:30)
--- NOTE | 2025-01-30 22:31 | RAD REPORT ---
EXAMINATION: CTA CHEST PE CLINICAL INDICATION: dyspnea TECHNIQUE: This examination was performed according to an angiographic protocol with 3D post-processi ng. This involves 3D reconstructions, MIPs, volume rendered images and/or shaded surface rendering. One or more of the following dose reduction techniques were used: Automated exposure control, adjustm ent of the mA and/or kV according to patient size, and/or iterative reconstruction. Unless otherwise specified, incidental findings do not require dedicated imaging follow-up. COMPARISON: No prior exam. FINDINGS: PULMONARY ARTERIES: Normal caliber. No evidence of pulmonary emboli to the subsegmental level. THORACIC AORTA: Normal caliber and configuration. LUNGS: Mild linear atelectasis in both lung bases. Lungs otherwise clear. PLEURA: Small bilateral pleural effusions. MEDIASTINUM AND LYMPH NODES: No mediastinal mass or fluid collection. Normal size mediastinal, hilar, and axillary lymph nodes. OSSEOUS STRUCTURES AND CHEST WALL: Intact. UPPER ABDOMEN: TIPS shunt. Small hiatal hernia. IMPRESSION: No evidence of pulmonary emboli to the subsegmental level. Small bilateral pleural effusions with atelectasis in both lung bases.
[2025-01-31 06:23] LABS: Absolute Lymphocytes (CBC) 0.3 K/uL (0.7-4.9); Hematocrit 29.4 % (36.0-45.0); Hemoglobin 10.7 g/dL (12.0-15.0); MCH 32.0 pg (27.0-35.0); MCHC 36.4 g/dL (32.0-36.0); MCV 87.9 fL (80-100); MPV 6.8 fL (7.6-11.3); Nucleated RBC Absolute Count 0.0 (0-0); Nucleated Red Blood Cells % 0.0 % (0-0); RBC Red Blood Cell Count 3.34 M/uL (3.86-4.86); White Blood Count 10.70 thou/uL (4.3-10.9)
[2025-01-31] MEDS: NA CHLORIDE 3% 500 ML IV SCH (06:30)
[2025-01-31 06:39] LABS: Anion Gap 8.6 mEq/L (5.0-15.0); BUN Blood Urea Nitrogen 20.0 mg/dL (7-18); Glucose Level 195.0 mg/dL (74-106); Magnesium 2.5 mg/dL (1.6-2.4); Potassium 4.6 mEq/L (3.5-5.1)
[2025-01-31] MEDS ORDERED: ONDANSETRON 4 MG (ODT) TAB PO PRN (06:48)
[2025-01-31 07:28] LABS: Blood Morphology Comment NOT SEEN (NOT SEEN); Differential Total Cells Count 100; Segmented Neutrophils 91 % (40-80)
--- NOTE | 2025-01-31 08:00 | P.CNS ---
Primary Care Provider: Dr Scott Rangel Chief Complaint: COPD exacerbation History of Present Illness: Patient is 69 years of age with a history of COPD former heavy smoker 1 pack a day quit about a year ago for the past 2 weeks has been complaining of worsening dyspnea cough congestion wheezing. Use of bronchodilators and is on a regular Symbicort inhaler and it appeared in the hospital she is also had a apparently had a stent placed about 3 months ago also states that she has chronic liver disease probably underlying fatty liver he is on home oxygen compliant with the bronchodilator lives in a care home has been unable to walk recently Allergies acetaminophen [From Vicodin] Allergy (Verified 10/01/24 02:25) Itching hydrocodone [From Vicodin] Allergy (Verified 10/01/24 02:25) Itching propoxyphene [From Darvocet-N 100] Allergy (Verified 10/01/24 02:25) Itching blueberry Allergy (Uncoded 10/01/24 02:25) Itching ibuprofen Allergy (Uncoded 10/01/24 02:25) Itching morphine Allergy (Uncoded 10/01/24 02:25) Itching Home Medications: Budesonide/Formoterol Fumarate [Budesonide-Formoterol 160-4.5] 2 puff IH BID* 10/01/24 Carvedilol [Coreg] 6.25 mg PO BID 10/01/24 Furosemide 40 mg PO DAILY 10/01/24 Gabapentin 400 mg PO TID 10/01/24 Lactulose 30 ml PO TID 10/01/24 Magnesium Oxide 250 mg PO DAILY 10/01/24 Montelukast [Singulair*] 10 mg PO BEDTIME 10/01/24 Ondansetron [Zofran (Odt)*] 4 mg PO Q8HR PRN 10/01/24 Rifaximin [Xifaxan] 550 mg PO BID* 10/01/24 Sertraline [Zoloft*] 150 mg PO DAILY 10/01/24 Spironolactone 50 mg PO DAILY 10/01/24 Tramadol HCl [Ultram] 50 mg PO BID PRN 10/01/24 Amlodipine Besylate 5 mg PO DAILY 01/30/25 Aspirin Chewable [Aspirin Chewable*] 81 mg PO DAILY 01/30/25 Atorvastatin Calcium 20 mg PO BEDTIME 01/30/25 Cholecalciferol (Vitamin D3) [Vitamin D3] 50 mcg PO DAILY 01/30/25 Clopidogrel Bisulfate [Plavix] 75 mg PO DAILY 01/30/25 Doxycycline Hyclate 100 mg PO Q12HR 01/30/25 Glipizide [Glipizide Xl] 5 mg PO DAILY 01/30/25 Guaifenesin/Dextromethorphan [Guaifenesin Dm Syrup] 10 ml PO Q6HR PRN 01/30/25 Ipratropium/Albuterol Sulfate [Iprat-Albut 0.5-3(2.5) mg/3 ml] 3 ml IH Q4H 01/30/25 Linagliptin [Tradjenta] 5 mg PO DAILY 01/30/25 Loratadine 10 mg PO DAILY 01/30/25 Melatonin 2 tab PO BEDTIME 01/30/25 Mv-Min/Iron/Folic/Calcium/Vitk [Women's Multivitamin Tablet] 1 each PO DAILY 01/30/25 Pantoprazole Sodium 20 mg PO DAILY 01/30/25 Potassium Chloride 10 meq PO DAILY 01/30/25 methocarbamoL [Methocarbamol] 500 mg PO Q6H PRN 01/30/25 predniSONE [Deltasone*] 40 mg PO DAILY 01/30/25 - Past Medical/Surgical History Diabetic: Yes -: End-stage nonalcoholic liver disease -: CKD stage III -: Chronic diastolic congestive heart failure -: HLD -: DM2 -: Gastroesophageal reflux disease -: Major depressive disorder -: Hypokalemia, chronic -: Allergic rhinitis -: Atherosclerosis with CAD -: Vitamin D deficiency -: -: lap bhavin -: appendix -: hysterectomy -: Status post TIPS - Social History Smoking Status: Current some day smoker Alcohol use: No CD- Drugs: No Caffeine use: No Place of Residence: Jail Review of Systems 10-point ROS is otherwise unremarkable General: Weakness Respiratory: Cough, Shortness of Breath Physical Examination Temp Pulse Resp BP Pulse Ox 98.2 F 71 16 163/70 H 100 01/31/25 04:00 01/31/25 04:00 01/31/25 04:00 01/31/25 04:00 01/31/25 04:00 General: Alert, Oriented x3 HEENT: Atraumatic Neck: Supple Respiratory: Clear to auscultation bilaterally, Diminished Cardiovascular: No edema, Regular rate/rhythm, Normal S1 S2 Gastrointestinal: Normal bowel sounds, Soft and benign Laboratory Data (last 24 hrs) 01/30/25 01/30/25 01/30/25 10:10 10:10 10:10 WBC 14.40 H Hgb 10.8 L Hct 30.6 L Plt Count 174 PT 13.8 H INR 1.23 APTT 26.8 L Sodium 121 L Potassium 3.7 BUN 16 Creatinine 1.17 H Glucose 77 Total Bilirubin 1.6 H AST 118 H ALT 76 H Alkaline Phosphatase 173 H - Problems (1) COPD exacerbation Current Visit: Yes Status: Acute Plan: Patient is 69 years of age history of COPD admitted with an exacerbation former heavy smoker multiple other medical's including congestive heart failure renal disease liver disease no evidence of pulmonary emboli apparently has a TIPS patient has mild chronic renal insufficiency mild anemia vital signs oxygenation satisfactory chest x-ray is clear CT scan reviewed patient's vital signs are stable resume glipizide resume low-dose prednisone patient has mild hyponatremia elevated BNP abnormal LFTs no evidence of any infection CARLO Cronin
[2025-01-31] MEDS: NA CHLORIDE 0.9% 1,000 ML IV SCH (09:00)
[2025-01-31] MEDS ORDERED: PANTOPRAZOLE SODIUM 20 MG PO SCH (09:00)
[2025-01-31] MEDS ORDERED: METHYLPREDNISOLONE 125 MG INJ IV SCH (09:00)
[2025-01-31] MEDS: HOME MED 1 EA UNK (Linagliptin [Tradjenta] 5 MG Tablet) PO SCH (09:00)
[2025-01-31] MEDS ORDERED: PIPER TAZO 3.375 GM in NA CHLORIDE 0.9% 100 ML IV SCH (09:00)
[2025-01-31] MEDS: POTASSIUM CL SA 10 MEQ TAB PO SCH (09:20)
[2025-01-31] MEDS: SERTRALINE HCL 50 MG TAB PO SCH (09:21)
[2025-01-31] MEDS: PANTOPRAZOLE 40MG TABLET PO SCH (09:21)
[2025-01-31] MEDS: GLIPIZIDE S.A. 5 MG TAB PO SCH (09:21)
[2025-01-31] MEDS: predniSONE 10 MG TAB PO SCH (09:21)
[2025-01-31] MEDS: LORATADINE 10 MG TAB PO SCH (09:22)
[2025-01-31] MEDS: FUROSEMIDE 40 MG TABLET PO SCH (09:22)
[2025-01-31] MEDS: Multi-VIT(Centravite Senior) 1 TAB TAB PO SCH (09:22)
[2025-01-31] MEDS: AMLODIPINE 5 MG TAB PO SCH (09:22)
[2025-01-31] MEDS: SPIRONOLACTONE 25 MG TABLET PO SCH (09:22)
[2025-01-31] MEDS: GABAPENTIN 400 MG CAP PO SCH (09:22)
[2025-01-31] MEDS: ASPIRIN 81 MG CHEWABLE TABLET PO SCH (09:22)
[2025-01-31] MEDS: VITAMIN D 1000 UNIT TAB PO SCH (09:22)
[2025-01-31] MEDS: LACTULOSE 20 GM/30 ML UCUP PO SCH (09:23)
[2025-01-31] MEDS: CLOPIDOGREL 75 MG TABLET PO SCH (09:23)
[2025-01-31] MEDS: ENOXAPARIN 40 MG/0.4 ML SQ SCH (09:23)
--- NOTE | 2025-01-31 10:05 | RAD REPORT ---
EXAMINATION: ONE VIEW CHEST XR CLINICAL INDICATION: dyspnea TECHNIQUE: Frontal chest projection is submitted. Examination is limited by patient positioning and t echnique. COMPARISON: 01/30/2025 FINDINGS: Mild interstitial pulmonary edema suspected. The heart is upper limit of normal in size. No displaced fractures identified. Trace left pleural effusion. IMPRESSION: Mild CHF.
--- NOTE | 2025-01-31 13:38 | P.PN ---
Subjective Date of Service: 01/31/25 Primary Care Provider: Dr Scott Rangel Chief Complaint: COPD exacerbation Subjective: Improving Assessed patient lying in bed on nasal cannula in no apparent distress with better skin color. Endorses resolution of shortness of breath. Denies chills, fever, N/V, dizziness. Endorses mild cough consistent with baseline. Review of Systems 10-point ROS is otherwise unremarkable Physical Examination - Vital Signs Temperature: 97.7 F Blood Pressure: 145/68 Pulse: 73 Respirations: 20 Pulse Ox (%): 100 - Physical Exam General: Alert, In no apparent distress, Oriented x3, Cooperative, Obese HEENT: Atraumatic, Normocephalic, Mucous membr. moist/pink, Other (Nasal cannula) Neck: Supple, 2+ carotid pulse no bruit, JVD not distended, No Thyromegaly Respiratory: Diminished, Expiratory wheezes (Faint bilateral bases) Cardiovascular: No edema, Normal pulses, Regular rate/rhythm, Normal S1 S2 Gastrointestinal: Normal bowel sounds, Soft and benign, Non-distended Musculoskeletal: No clubbing, No swelling, No contractures, No erythema, No tenderness Integumentary: No rashes, No breakdown, No tenderness/swelling, No erythema Neurological: Normal speech, Normal tone, Sensation intact, Cranial nerves 3-12 intact, Other (Bilateral lower extremity strength 2/5) Assessment And Plan - Plan Assessment: 69-year-old female with previous medical history of end-stage liver disease, CKD stage III, DM2, atherosclerosis with CAD, MDD, GERD, chronic pain, hypertension, hyperlipidemia admitted with acute exacerbation of COPD. Plan: COPD with acute exacerbation. Acute hypoxic and hypercapnic respiratory failure secondary to above. -Albuterol nebulizer mg Q 6 hours PRN Shortness of breath/Wheezing. -Ipratropium Nebulizer mg Q 6 hour PRN Shortness of breath/Wheezing. -Prednisone 40 mg P.O daily for a total of 5 days ( END date 02/02 ) -Continuous pulse oximetry -Baseline Oxygen requirements: 2L at night -Oxygen Via nasal canula to maintain O2 saturation 88-92% wean down as tolerated. -CXR personally reviewed and showed: No acute cardiopulmonary process -CTPE negative -ECG personally reviewed and showed: Normal sinus rhythm -VBGs not collected -Influenza A, B, Covid 19 canceled -Antibiotics: Zosyn 3.375 g TID discontinued. After discussion with pulm, no concern for infection. hyponatremia - Sodium 125 , baseline seems around 140 . -NS at 100 -Monitor BMP daily -Monitor fluid status -Consider nephrology consult if not improving Wound, groin Wound care consulted and following - Right lower abdominal skin fold without erythema, warmth, discharge Chronic conditions DM 2 Chronic pain COPD End-stage nonalcoholic liver disease Hyperlipidemia GERD Insomnia Hypertension MDD Allergic rhinitis Atherosclerosis CAD Resume home meds once med rec complete Dispo: - Wean O2 as tolerate - [facility] once stable Discharge Plan: [facility] Plan to discharge in: 24 Hours - Code Status/Comfort Care Code Status Assessed: No Critical Care: No
[2025-01-31] MEDS: IPRATROPIUM BROM 0.5MG/2.5ML NEB SCH (14:01)
[2025-01-31] MEDS: ALBUTEROL 2.5 MG/3 ML NEB SOL NEB PRN (19:59)
[2025-01-31] MEDS: MELATONIN 5 MG TABLET PO SCH (21:00)
[2025-01-31] MEDS: ATORVASTATIN 20 MG TAB PO SCH (21:20)
[2025-01-31] MEDS: MONTELUKAST 10 MG TAB PO SCH (21:20)
[2025-02-01] MEDS: TRAMADOL HCL 50 MG TAB PO PRN (01:33)
[2025-02-01 05:40] LABS: Hematocrit 30.0 % (36.0-45.0); Hemoglobin 10.8 g/dL (12.0-15.0); MCH 31.8 pg (27.0-35.0); MCHC 35.9 g/dL (32.0-36.0); MCV 88.5 fL (80-100); MPV 6.4 fL (7.6-11.3); RBC Red Blood Cell Count 3.39 M/uL (3.86-4.86); White Blood Count 8.80 thou/uL (4.3-10.9)
[2025-02-01 05:57] LABS: Anion Gap 4.5 mEq/L (5.0-15.0); BUN Blood Urea Nitrogen 21.0 mg/dL (7-18); Glucose Level 125.0 mg/dL (74-106); Potassium 4.5 mEq/L (3.5-5.1)
--- NOTE | 2025-02-01 07:17 | RAD REPORT ---
Procedure: Chest Single View HISTORY: Shortness of breath COMPARISON: January 31, 2025 FINDINGS: Mild by basilar atelectasis unchanged. Small bilateral pleural effusions unchanged.. The heart is mildly enlarged .
[2025-02-01 08:41] VITALS: O2SAT 97
--- NOTE | 2025-02-01 11:36 | P.DS ---
Admission Date: 01/30/25 Discharge Date: 02/01/25 Primary Care Provider: Dr Scott Rangel Disposition: TRANSFER TO [facility] Discharge Condition: GOOD Reason for Admission: COPD exacerbation Consultations: Pulmonology Procedures: None Brief History of Present Illness: Geronimo reports experiencing shortness of breath, increased breathing rate, fatigue, and weakness. Reports feeling chills and upper back pain intermittently since symptoms began. Geronimo states that wheezing is chronically present but has worsened recently. Geronimo endorses weakness and an increased need for oxygen, which has worsened over the past week. Geronimo normally requires 2 liters of oxygen via nasal cannula only at night but has recently been requiring 2-4 liters around the clock. The daughter was on the phone and provided significant collateral data. Past Medical History: - NALD - CKD Stage III - Congestive Heart Failure, chronic diastolic congestive heart failure - Hyperlipidemia - Type 2 diabetes - GERD - Major depressive disorder - Hypokalemia - Allergic rhinitis - Atherosclerosis and coronary artery disease - Vitamin D deficiency Geronimo follows a cardiac, renal, and diabetic diet. Geronimo sees Dr. Lopez with [facility] for cardiology, Dr. Melendrez for nephrology, and Dr. Gregorio with [facility] for hepatology. Geronimo denies any allergies. Geronimo reports a smoking history with cessation one year prior. Current medications: - Tramadol 50 mg, one tablet every 12 hours for chronic pain - Lactulose 30 mL by mouth three times a day, titrated to two to three bowel movements daily for cirrhosis of the liver - Coreg 6.25 mg twice daily for congestive heart failure - Atorvastatin 20 mg, one tablet at bedtime for hyperlipidemia - Montelukast 10 mg, one tablet by mouth at bedtime for COPD - Rifaximin 550 mg twice daily for cirrhosis of the liver - Gabapentin 400 mg three times daily for chronic pain - Symbicort inhaler 160-4.5 mcg, two puffs twice daily for COPD - Women's multivitamin - Spironolactone 50 mg once daily for CHF and cirrhosis of the liver - Furosemide 40 mg twice daily by mouth for CHF and cirrhosis of the liver - Magnesium oxide 250 mg, one tablet by mouth daily - Carbamol 500 mg, one tablet every six hours for chronic pain - Tradjenta 5 mg, one tablet by mouth daily for type 2 diabetes - Pantoprazole 20 mg, one tablet by mouth daily for GERD - Sertraline 100 mg, one tablet by mouth daily for major depressive disorder - Potassium chloride extended release 10 mEq daily for hypokalemia - Loratadine 10 mg once daily for allergic rhinitis - Glipizide XL 5 mg once daily for type 2 diabetes - Amlodipine 5 mg, one tablet daily for hypertension - Aspirin 81 mg, one tablet once daily for atherosclerosis and coronary artery disease - Cholecalciferol 50 mcg, one tablet once daily for vitamin D deficiency - Plavix 75 mg, one tablet daily Hospital Course: Acute on Chronic COPD Exacerbation Geronimo Davis was admitted for an acute exacerbation of COPD, presenting with worsening dyspnea, weakness, and increased oxygen requirements over the past week. A trial of doxycycline and prednisone at her facility starting 01/29/2025 provided inadequate improvement. Upon presentation, she had an increased work of breathing with diffuse wheezing. She received DuoNeb treatments at her facility and en route. Pulmonology was consulted and deemed the exacerbation to be non- infectious; therefore, no further antibiotics were administered. She was treated with scheduled DuoNeb treatments and IV steroids. By the day of discharge, 02/01/2025, she had returned to her baseline oxygen status, requiring 3L nasal cannula without apparent distress or dyspnea, and was medically cleared to return to her previous living situation. Leukocytosis The leukocytosis noted on admission was resolved by the day of discharge, with a white blood cell count of 8.8. Hyponatremia The patient's hyponatremia improved during the hospital stay, with a sodium level of 133 on the day of discharge. She was given normal saline IV infusion and normal at 100 mL/h. Sodium was monitored with frequent BMPs with gradual trend back to normal. Chronic Kidney Disease Renal function was monitored and remained stable within the patient's baseline range throughout the admission. Vital Signs/Physical Exam: Temp Pulse Resp BP Pulse Ox 97.6 F 67 17 137/60 98 02/01/25 08:00 02/01/25 10:10 02/01/25 08:00 02/01/25 10:10 02/01/25 08:00 General: Alert, In no apparent distress, Oriented x3, Obese HEENT: Atraumatic, Normocephalic Neck: Supple, JVD not distended Respiratory: Clear to auscultation bilaterally, Normal air movement Cardiovascular: Normal pulses, Regular rate/rhythm, Normal S1 S2 Capillary refill: Brisk Gastrointestinal: Normal bowel sounds, Soft and benign, Non-distended, W/out hepatosplenomegaly Musculoskeletal: No clubbing, No contractures, No erythema, No tenderness Integumentary: No rashes, No breakdown, No significant lesion, No tenderness/swelling, No erythema Neurological: Normal speech, Normal tone, Sensation intact, Normal affect Laboratory Data at Discharge: WBC 8.80 thou/uL (4.3-10.9) 02/01/25 05:19 Hgb 10.8 g/dL (12.0-15.0) L 02/01/25 05:19 Hct 30.0 % (36.0-45.0) L 02/01/25 05:19 Plt Count 141 thou/uL (152-406) L 02/01/25 05:19 PT 13.8 SECONDS (10-13.0) H 01/30/25 10:10 INR 1.23 01/30/25 10:10 APTT 26.8 SECONDS (27.2-37.4) L 01/30/25 10:10 Sodium 133 mEq/L (136-145) L D 02/01/25 05:19 Potassium 4.5 mEq/L (3.5-5.1) 02/01/25 05:19 BUN 21 mg/dL (7-18) H 02/01/25 05:19 Creatinine 1.29 mg/dL (0.55-1.02) H 02/01/25 05:19 Glucose 125 mg/dL (74-106) H 02/01/25 05:19 Phosphorus 3.6 mg/dL (2.5-4.9) 01/31/25 05:53 Magnesium 2.5 mg/dL (1.6-2.4) H 01/31/25 05:53 Total Bilirubin 1.6 mg/dL (0.2-1.0) H 01/30/25 10:10 AST 118 U/L (15-37) H 01/30/25 10:10 ALT 76 U/L (13-56) H 01/30/25 10:10 Alkaline Phosphatase 173 U/L (45-117) H 01/30/25 10:10 Home Medications: Budesonide/Formoterol Fumarate [Budesonide-Formoterol 160-4.5] 2 puff IH BID* 10/01/24 Carvedilol [Coreg] 6.25 mg PO BID 10/01/24 Furosemide 40 mg PO DAILY 10/01/24 Gabapentin 400 mg PO TID 10/01/24 Lactulose 30 ml PO TID 10/01/24 Magnesium Oxide 250 mg PO DAILY 10/01/24 Montelukast [Singulair*] 10 mg PO BEDTIME 10/01/24 Ondansetron [Zofran (Odt)*] 4 mg PO Q8HR PRN 10/01/24 Rifaximin [Xifaxan] 550 mg PO BID* 10/01/24 Sertraline [Zoloft*] 150 mg PO DAILY 10/01/24 Spironolactone 50 mg PO DAILY 10/01/24 Tramadol HCl [Ultram] 50 mg PO BID PRN 10/01/24 Amlodipine Besylate 5 mg PO DAILY 01/30/25 Aspirin Chewable [Aspirin Chewable*] 81 mg PO DAILY 01/30/25 Atorvastatin Calcium 20 mg PO BEDTIME 01/30/25 Cholecalciferol (Vitamin D3) [Vitamin D3] 50 mcg PO DAILY 01/30/25 Clopidogrel Bisulfate [Plavix] 75 mg PO DAILY 01/30/25 Glipizide [Glipizide Xl] 5 mg PO DAILY 01/30/25 Ipratropium/Albuterol Sulfate [Iprat-Albut 0.5-3(2.5) mg/3 ml] 3 ml IH Q4H 01/30/25 Linagliptin [Tradjenta] 5 mg PO DAILY 01/30/25 Loratadine 10 mg PO DAILY 01/30/25 Melatonin 2 tab PO BEDTIME 01/30/25 Mv-Min/Iron/Folic/Calcium/Vitk [Women's Multivitamin Tablet] 1 each PO DAILY 01/30/25 Pantoprazole Sodium 20 mg PO DAILY 01/30/25 Potassium Chloride 10 meq PO DAILY 01/30/25 methocarbamoL [Methocarbamol] 500 mg PO Q6H PRN 01/30/25 Albuterol Neb [Proventil 0.083% Neb Soln] 2.5 mg NEB [id number] PRN amp 02/01/25 Insulin Regular, Human [Novolin R] See Protocol SQ ACHS ml 02/01/25 Ipratropium Neb [Atrovent*] 0.5 mg NEB [id number] amp 02/01/25 predniSONE [Deltasone*] 10 mg PO BID tab 02/01/25 Physician Discharge Instructions: PROBLEM: COPD exacerbation GOAL: Clear understanding of disease process INSTRUCTIONS: Take all your medication as prescribed Inform your PCP if you have any return of symptoms Continue abstain from cigarette smoking or exposure to other environmental allergens Diet: Diabetic Cardiac Renal Activity: Resume normal activities as tolerated Ambulate with assistance Diet: Renal Activity: Fall precautions Followup: NONE,NONE [Primary Care Provider] - Time spent managing pt's care (in minutes): 36
[2025-02-01 12:55] VITALS: BP 114/58; TEMP 97.9
== END 2025-02-01 13:48 | DRG 189 ==
LOC: ER 09:12 → 2ND 14:00
PROVIDERS: ADMIT Hospitalist; ATTEND Hospitalist
DX: J96.01 Acute respiratory failure with hypoxia (principal); J44.1 Chronic obstructive pulmonary disease with (acute) exacerbation; E87.1 Hypo-osmolality and hyponatremia; I50.32 Chronic diastolic (congestive) heart failure; I13.0 Hypertensive heart and chronic kidney disease with heart failure and stage 1 through stage 4 chronic kidney disease, or unspecified chronic kidney disease; J96.02 Acute respiratory failure with hypercapnia; N18.30 Chronic kidney disease, stage 3 unspecified; E11.22 Type 2 diabetes mellitus with diabetic chronic kidney disease; E78.5 Hyperlipidemia, unspecified; E66.9 Obesity, unspecified; J30.9 Allergic rhinitis, unspecified; G47.00 Insomnia, unspecified; K74.60 Unspecified cirrhosis of liver; K72.10 Chronic hepatic failure without coma; K21.9 Gastro-esophageal reflux disease without esophagitis; I25.10 Atherosclerotic heart disease of native coronary artery without angina pectoris; Z88.5 Allergy status to narcotic agent; Z88.6 Allergy status to analgesic agent; Z88.7 Allergy status to serum and vaccine; Z88.8 Allergy status to other drugs, medicaments and biological substances; Z90.49 Acquired absence of other specified parts of digestive tract; Z90.710 Acquired absence of both cervix and uterus; Z87.891 Personal history of nicotine dependence; Z79.02 Long term (current) use of antithrombotics/antiplatelets; Z79.52 Long term (current) use of systemic steroids; Z68.39 Body mass index [BMI] 39.0-39.9, adult; Z11.52 Encounter for screening for COVID-19; Z79.899 Other long term (current) drug therapy
CPT/HCPCS: 36415; 71045; 71275; 80048; 80053; 82947; 83605; 83735; 83880; 84100; 84295; 84484; 85025; 85027; 85610; 85730; 87040; 87428; 93005; 94640; 94760; 96365; 96375; 97110; 97161; 97530; 99285; J1650; J1815; J2919; J3475; J7030; J7131; J7512; J7613; J7644; Q9967